=== PATIENT | female | born 1950 | race Caucasian/White ===

== ENCOUNTER → 2018-02-20 09:22 | Outpatient (CLI) | payer OTHER, SELFPAY ==
[2018-02-20 10:30] LABS: Absolute Lymphocyte Count 1.59 X10^3/ul (0.83-4.51); Absolute Neutrophil Count 2.2 X10^3/uL (2.0-7.7); Basophil# 0.02 X10^3/uL; Basophil% 0.4 % (0-1); Eosinophil# 0.61 X10^3/uL; Eosinophils% 12.8 % (0-5); Hematocrit 40.2 % (37-47); Lymphocyte # 1.59 X10^3/ul (4.0); Lymphocyte % 33.3 % (19-41); Mean Corp Hgb Conc 34.8 g/gl (32-36); Mean Corpuscular Hgb 30.9 pg (27.0-32.0); Mean Corpuscular Volume 88.7 fL (81-99); Mean Platelet Vol. 9.7 fl (6.2-12.0); Monocyte# 0.34 X10^3/uL; Monocyte% 7.1 % (0-10); Neutrophil # 2.19 X10^3/uL (2.7-7.7); Platelet Count 226 K/mm3 (150-450); RBC Distribution Width SD 38.2 fl (35.1-43.9); Red Blood Count 4.53 M/mm3 (4.2-5.4); White Blood Count 4.8 K/mm3 (4.4-11.0)
[2018-02-20 10:31] LABS: POSITIVE COUNT NO; POSITIVE DIFFERENTIAL NO; POSITIVE MORPHOLOGY NO
[2018-02-20 10:51] LABS: Hemoglobin A1c 5.2 % (4.2-6.3)
[2018-02-20 10:52] LABS: Vitamin B12 1314 pg/mL (211-911); Vitamin D,25 Hydroxy 46.7 ng/mL (29.95-100.01)
[2018-02-20 10:53] LABS: BUN 12 mg/dL (7-18); Creatinine, Serum 0.66 mg/dL (0.55-1.02); Glucose 93 mg/dL (74-106)
[2018-02-20 10:54] LABS: ALB/GLOB Ratio 1.1 RATIO (0.9-2.4); AST(SGOT) 17 U/L (15-37); Alanine Aminotransfer ALT/SGPT 19 U/L (13-56); Albumin, Serum 3.8 g/dL (3.2-5.0); Alkaline Phosphatase 72 U/L (45-117); Anion Gap 10 (5-15); BNP,B-Type NATRIURETIC PEPTIDE 40.3 pg/mL (0-100); Calcium,Total 8.6 mg/dL (8.5-10.1); Chloride 109 mmol/L (98-107); Cholesterol 237 mg/dL (200); EST Glomerular Filtration Rate 94 mL/min (>60); Est Glom Filt Rate - Afr Amer 113 mL/min (>60); Globulin 3.4 g/dL (2.2-4.2); High Density Lipoprotein 37 mg/dL; Iron 72 ug/dL (50-170); Potassium 3.6 mmol/L (3.5-5.1); Protein, Total 7.2 g/dL (6.4-8.2); Sodium Level 142 mmol/L (136-145); T4 Free Direct 1.21 ng/dL (0.76-1.46); Triglycerides 244 mg/dL; Very Low Density Lipoprotein 49 mg/dL (5-40)
[2018-02-23 10:12] LABS: Zinc, Plasma or Serum 82 ug/dL (56-134)
== END ==
PROVIDERS: Family Provider Family Medicine; PCP Family Medicine; Visit Provider Family Medicine
DX: Z00.00 Encounter for general adult medical examination without abnormal findings (principal); E11.9 Type 2 diabetes mellitus without complications; E03.9 Hypothyroidism, unspecified; E55.9 Vitamin D deficiency, unspecified; M79.7 Fibromyalgia; I42.9 Cardiomyopathy, unspecified
CPT/HCPCS: 36415; 80053; 80061; 82306; 82607; 83036; 83540; 83880; 84439; 84443; 84630; 85025

== ENCOUNTER → 2018-02-23 09:02 | Outpatient (CLI) | payer OTHER, SELFPAY ==
--- NOTE | 2018-02-23 09:11 | ECHOD_ITS ---
Reason For Study: cardimyopathy Procedure This was a 2D Doppler, Color Flow transthoracic echocardiogram. The exam was of adequate technical quality. Exam performed in department. Left Ventricle Normal LV size. Apical false tendon noted. Left ventricular systolic function is normal. The estimated ejection fraction is 60 %. There is evidence of diastolic dysfunction. No regional wall motion abnormalities noted. Right Ventricle Normal RV size. Normal systolic function. Atria Normal left atrium. Normal right atrium. No doppler evidence for ASD. Mitral Valve There is mild mitral annular calcification. Extension of the mitral annular calcification onto the posterior mitral valve leaflet. Trivial mitral valve insufficiency. Tricuspid Valve Normal tricuspid valve. Mild to moderate (1-2+) tricuspid valve insufficiency. Right ventricular systolic pressure estimated to be 21 mmHg. Aortic Valve Trisinus/trileaflet aortic valve. Mild focal aortic valve calcification. Mild (1+) aortic valve insufficiency. Pulmonic Valve The pulmonic valve is not well visualized. Mild (1+) pulmonic valve insufficiency. Great Vessels Normal sized aortic root. Pericardium/Pleural No pericardial effusion. MMode/2D Measurements & Calculations LVIDd: 4.3 cm IVSd: 1.1 cm Ao root diam: 3.1 cm LVIDs: 2.8 cm LVPWd: 1.1 cm LA dimension: 3.3 cm RVDd: 2.5 cm FS: 34.7 % LAV(MOD-bp): 39.6 ml LA A4 area: 15.7 cm2 RA A4 area: 8.9 cm2 LAV(MOD-bp) Indexed: 23.4 ml/m2 LAV(MOD-sp2): 33.1 ml LAV(MOD-sp4): 45.4 ml Doppler Measurements & Calculations MV E max vicente: 79.9 cm/sec Lat Peak E' Vicente: 5.0 cm/sec Med Peak E' Vicente: 5.1 cm/sec MV A max vicente: 107.9 cm/sec E/E' lat: 16.1 E/E' med: 15.7 MV E/A: 0.74 Ao V2 max: 134.9 cm/sec AI max vicente: 431.0 cm/sec LV V1 max: 90.1 cm/sec Ao max P.3 mmHg AI max P.4 mmHg LV V1 max P.2 mmHg AI dec slope: 197.3 cm/sec2 AI P1/2t: 639.7 msec PA V2 max: 83.2 cm/sec PI dec slope: 169.4 cm/sec2 TR max vicente: 208.7 cm/sec TR max P.5 mmHg Interpretation Summary Left ventricular systolic function is normal. The estimated ejection fraction is 60 %. Apical false tendon noted. There is mild mitral annular calcification. Extension of the mitral annular calcification onto the posterior mitral valve leaflet. Trivial mitral valve insufficiency. Mild to moderate (1-2+) tricuspid valve insufficiency. Mild focal aortic valve calcification. Mild (1+) aortic valve insufficiency. Mild (1+) pulmonic valve insufficiency. Right ventricular systolic pressure estimated to be 21 mmHg. There is evidence of diastolic dysfunction. Ordering Physician: Zoran Tang Referring Physician: Zoran Tang Performed By: Selene Ashley, JEROME, RVT
== END ==
PROVIDERS: Family Provider Family Medicine; PCP Family Medicine; Visit Provider Family Medicine
DX: I42.9 Cardiomyopathy, unspecified (principal)
CPT/HCPCS: 93306

== ENCOUNTER → 2018-05-22 14:43 | Outpatient (CLI) | payer OTHER, SELFPAY | LOC: MTRAD 11-17 11:34 → RAD.FUTURE 14:46 | PROVIDERS: Family Provider Family Medicine; PCP Family Medicine; Visit Provider Family Medicine | DX: M21.70 Unequal limb length (acquired), unspecified site (principal); M17.12 Unilateral primary osteoarthritis, left knee; R20.2 Paresthesia of skin | CPT/HCPCS: 72110; 73564 ==

== ENCOUNTER → 2018-05-30 12:01 | Outpatient (CLI) | payer OTHER, SELFPAY ==
[2018-05-30 13:53] LABS: Absolute Lymphocyte Count 1.35 X10^3/ul (0.83-4.51); Absolute Neutrophil Count 3.3 X10^3/uL (2.0-7.7); Basophil# 0.01 X10^3/uL; Basophil% 0.2 % (0-1); Eosinophils% 5.6 % (0-5); Hematocrit 43.6 % (37-47); Hemoglobin 14.1 g/dl (12.0-15.0); Lymphocyte # 1.35 X10^3/ul (4.0); Mean Corp Hgb Conc 32.3 g/gl (32-36); Mean Corpuscular Hgb 29.9 pg (27.0-32.0); Mean Corpuscular Volume 92.4 fL (81-99); Mean Platelet Vol. 9.8 fl (6.2-12.0); Monocyte# 0.39 X10^3/uL; Monocyte% 7.2 % (0-10); Neutrophil # 3.33 X10^3/uL (2.7-7.7); Neutrophil % 61.6 % (47-70); Platelet Count 261 K/mm3 (150-450); RBC Distribution Width CV 12.8 % (11.6-14.6); RBC Distribution Width SD 42.9 fl (35.1-43.9); Red Blood Count 4.72 M/mm3 (4.2-5.4); White Blood Count 5.4 K/mm3 (4.4-11.0)
[2018-05-30 13:54] LABS: POSITIVE COUNT NO; POSITIVE DIFFERENTIAL NO; POSITIVE MORPHOLOGY NO
[2018-05-30 14:26] LABS: Anion Gap 10 (5-15); BUN 17 mg/dL (7-18); Calcium,Total 9.1 mg/dL (8.5-10.1); Chloride 110 mmol/L (98-107); Cholesterol 245 mg/dL (200); Creatinine, Serum 0.89 mg/dL (0.55-1.02); EST Glomerular Filtration Rate 67 mL/min (>60); Est Glom Filt Rate - Afr Amer 81 mL/min (>60); Glucose 91 mg/dL (74-106); High Density Lipoprotein 48 mg/dL; Magnesium 2.2 mg/dL (1.6-2.6); Potassium 3.7 mmol/L (3.5-5.1); Sodium Level 142 mmol/L (136-145); T4 Free Direct 0.74 ng/dL (0.76-1.46); Triglycerides 167 mg/dL; Very Low Density Lipoprotein 33 mg/dL (5-40)
[2018-05-31 09:49] LABS: Vitamin B12 399 pg/mL (211-911)
[2018-06-02 09:49] LABS: Zinc, Plasma or Serum 81 ug/dL (56-134)
== END ==
PROVIDERS: Family Provider Family Medicine; PCP Family Medicine; Visit Provider Family Medicine
DX: E11.9 Type 2 diabetes mellitus without complications (principal); E53.8 Deficiency of other specified B group vitamins; E03.9 Hypothyroidism, unspecified; M79.7 Fibromyalgia
CPT/HCPCS: 36415; 80048; 80061; 82607; 83735; 84439; 84443; 84630; 85025

== ENCOUNTER → 2018-09-08 08:44 | Outpatient (CLI) | payer OTHER, SELFPAY ==
[2018-09-08 10:39] LABS: ALB/GLOB Ratio 1.1 RATIO (0.9-2.4); AST(SGOT) 15 U/L (15-37); Alanine Aminotransfer ALT/SGPT 21 U/L (13-56); Alkaline Phosphatase 63 U/L (45-117); Anion Gap 7 (5-15); BUN 11 mg/dL (7-18); BUN/Creat Ratio 13.6 RATIO (10-20); Chloride 110 mmol/L (98-107); Cholesterol 229 mg/dL (200); Creatinine, Serum 0.81 mg/dL (0.55-1.02); EST Glomerular Filtration Rate 75 mL/min (>60); Est Glom Filt Rate - Afr Amer 90 mL/min (>60); Globulin 3.6 g/dL (2.2-4.2); Glucose 88 mg/dL (74-106); High Density Lipoprotein 50 mg/dL; Potassium 3.6 mmol/L (3.5-5.1); Protein, Total 7.6 g/dL (6.4-8.2); Sodium Level 144 mmol/L (136-145); T4 Free Direct 1.02 ng/dL (0.76-1.46); Thyroid Stim Hormone (TSH) 6.07 uIU/mL (0.358-3.74); Triglycerides 155 mg/dL; Very Low Density Lipoprotein 31 mg/dL (5-40)
[2018-09-08 10:46] LABS: Vitamin B12 489 pg/mL (211-911)
== END ==
PROVIDERS: Family Provider Family Medicine; PCP Family Medicine; Visit Provider Family Medicine
DX: I10 Essential (primary) hypertension (principal); E78.00 Pure hypercholesterolemia, unspecified; E03.9 Hypothyroidism, unspecified; E55.9 Vitamin D deficiency, unspecified; E53.8 Deficiency of other specified B group vitamins
CPT/HCPCS: 36415; 80053; 80061; 82306; 82607; 84439; 84443

== ENCOUNTER → 2018-11-21 10:17 | Outpatient (CLI) | payer OTHER, SELFPAY ==
[2018-11-21 12:23] LABS: Erythrocyte Sedimentation Rate 6 mm/hr (0-30)
[2018-11-21 12:25] LABS: Absolute Neutrophil Count 3.9 X10^3/uL (2.0-7.7); Eosinophil# 0.06 X10^3/uL; Eosinophils% 1.1 % (0-5); Hematocrit 42.3 % (37-47); Lymphocyte % 21.3 % (19-41); Mean Corp Hgb Conc 33.1 g/gl (32-36); Mean Corpuscular Hgb 30.4 pg (27.0-32.0); Mean Corpuscular Volume 91.8 fL (81-99); Mean Platelet Vol. 9.8 fl (6.2-12.0); Monocyte# 0.42 X10^3/uL; Monocyte% 7.5 % (0-10); Neutrophil # 3.92 X10^3/uL (2.7-7.7); Neutrophil % 69.6 % (47-70); Platelet Count 256 K/mm3 (150-450); RBC Distribution Width CV 12.6 % (11.6-14.6); RBC Distribution Width SD 41.9 fl (35.1-43.9); Red Blood Count 4.61 M/mm3 (4.2-5.4); White Blood Count 5.6 K/mm3 (4.4-11.0)
[2018-11-21 12:29] LABS: POSITIVE COUNT NO; POSITIVE DIFFERENTIAL NO; POSITIVE MORPHOLOGY NO
[2018-11-21 12:52] LABS: ALB/GLOB Ratio 1.2 RATIO (0.9-2.4); AST(SGOT) 20 U/L (15-37); Alanine Aminotransfer ALT/SGPT 26 U/L (13-56); Albumin, Serum 4.1 g/dL (3.2-5.0); Alkaline Phosphatase 66 U/L (45-117); Anion Gap 11 (5-15); BUN 13 mg/dL (7-18); CRP 5.35 mg/L (0.0-3.0); Calcium,Total 9.2 mg/dL (8.5-10.1); Chloride 107 mmol/L (98-107); Creatinine, Serum 0.81 mg/dL (0.55-1.02); EST Glomerular Filtration Rate 74 mL/min (>60); Est Glom Filt Rate - Afr Amer 89 mL/min (>60); Globulin 3.3 g/dL (2.2-4.2); Glucose 92 mg/dL (74-106); Potassium 3.8 mmol/L (3.5-5.1); Protein, Total 7.4 g/dL (6.4-8.2); Sodium Level 142 mmol/L (136-145); Thyroid Stim Hormone (TSH) 0.16 uIU/mL (0.358-3.74)
== END ==
PROVIDERS: Family Provider Family Medicine; PCP Family Medicine; Visit Provider Family Medicine
DX: E03.9 Hypothyroidism, unspecified (principal); L50.9 Urticaria, unspecified
CPT/HCPCS: 36415; 80053; 84443; 85025; 85652; 86140

== ENCOUNTER → 2019-03-09 08:31 | Outpatient (CLI) | payer OTHER, SELFPAY ==
[2019-03-09 10:19] LABS: Absolute Lymphocyte Count 1.86 X10^3/ul (0.83-4.51); Absolute Neutrophil Count 2.3 X10^3/uL (2.0-7.7); Eosinophil# 0.16 X10^3/uL; Eosinophils% 3.5 % (0-5); Hematocrit 41.2 % (37-47); Hemoglobin 14.1 g/dl (12.0-15.0); Lymphocyte # 1.86 X10^3/ul (4.0); Lymphocyte % 40.7 % (19-41); Mean Corp Hgb Conc 34.2 g/gl (32-36); Mean Corpuscular Hgb 29.9 pg (27.0-32.0); Mean Corpuscular Volume 87.3 fL (81-99); Mean Platelet Vol. 9.7 fl (6.2-12.0); Monocyte# 0.24 X10^3/uL; Monocyte% 5.3 % (0-10); Neutrophil % 50.3 % (47-70); Platelet Count 253 K/mm3 (150-450); RBC Distribution Width CV 12.7 % (11.6-14.6); Red Blood Count 4.72 M/mm3 (4.2-5.4); White Blood Count 4.6 K/mm3 (4.4-11.0)
[2019-03-09 10:22] LABS: Erythrocyte Sedimentation Rate 8 mm/hr (0-30)
[2019-03-09 10:24] LABS: POSITIVE COUNT NO; POSITIVE DIFFERENTIAL NO; POSITIVE MORPHOLOGY NO
[2019-03-09 11:04] LABS: Vitamin B12 337 pg/mL (211-911); Vitamin D,25 Hydroxy 28.8 ng/mL (29.95-100.01)
[2019-03-09 11:08] LABS: ALB/GLOB Ratio 1.3 RATIO (0.9-2.4); AST(SGOT) 18 U/L (15-37); Alanine Aminotransfer ALT/SGPT 23 U/L (13-56); Albumin, Serum 3.9 g/dL (3.2-5.0); Alkaline Phosphatase 88 U/L (45-117); Anion Gap 8 (5-15); BUN 9 mg/dL (7-18); BUN/Creat Ratio 12.4 RATIO (10-20); CRP < 2.90 mg/L (0.0-3.0); Calcium,Total 8.9 mg/dL (8.5-10.1); Chloride 109 mmol/L (98-107); Cholesterol 220 mg/dL (200); Creatinine, Serum 0.72 mg/dL (0.55-1.02); EST Glomerular Filtration Rate 85 mL/min (>60); Est Glom Filt Rate - Afr Amer 102 mL/min (>60); Free T3 2.5 pg/mL (2.18-3.98); Glucose 89 mg/dL (74-106); High Density Lipoprotein 41 mg/dL; Potassium 3.8 mmol/L (3.5-5.1); Protein, Total 6.9 g/dL (6.4-8.2); Sodium Level 140 mmol/L (136-145); Thyroid Stim Hormone (TSH) 3.57 uIU/mL (0.358-3.74); Triglycerides 301 mg/dL; Very Low Density Lipoprotein 60 mg/dL (5-40)
== END ==
PROVIDERS: Family Provider Family Medicine; PCP Family Medicine; Referring Provider Family Medicine; Visit Provider Family Medicine
DX: L50.9 Urticaria, unspecified (principal); M79.7 Fibromyalgia; E55.9 Vitamin D deficiency, unspecified; E03.9 Hypothyroidism, unspecified; E53.8 Deficiency of other specified B group vitamins; E78.00 Pure hypercholesterolemia, unspecified
CPT/HCPCS: 36415; 80053; 80061; 82306; 82607; 84439; 84443; 84481; 85025; 85652; 86140

== ENCOUNTER → 2019-03-12 13:06 | Outpatient (CLI) | payer OTHER, SELFPAY ==
--- NOTE | 2019-03-12 13:10 | ECHOD_ITS ---
Reason For Study: PALPITATIONS Procedure This was a 2D Doppler, Color Flow transthoracic echocardiogram. Exam performed in department. Left Ventricle Normal LV size. Left ventricular systolic function is normal. The estimated ejection fraction is 65 %. Stage 1 diastolic dysfunction. No regional wall motion abnormalities noted. Right Ventricle Normal RV size. Normal systolic function. Atria Normal left atrium. Normal right atrium. Mitral Valve Normal mitral valve. Tricuspid Valve Normal tricuspid valve. Mild (1+) tricuspid valve insufficiency. Pulmonary artery systolic pressure is 23 mmHg. Aortic Valve Normal aortic valve. Trisinus/trileaflet aortic valve. Mild (1+) eccentric aortic valve insufficiency. Pulmonic Valve Normal pulmonic valve. Mild (1+) pulmonic valve insufficiency. Great Vessels Normal aortic root. The pulmonary artery is normal size. Normal inferior vena cava. Pericardium/Pleural No pericardial effusion. MMode/2D Measurements & Calculations LVIDd: 4.8 cm IVSd: 0.86 cm Ao root diam: 3.1 cm LVIDs: 3.1 cm LVPWd: 0.87 cm RVDd: 3.0 cm FS: 34.9 % LAV(MOD-bp): 27.6 ml LVAd ap4: 23.6 cm2 SV(MOD-sp4): 42.2 ml LAV(MOD-bp) Indexed: 16.3 ml/m2 EDV(MOD-sp4): 68.9 ml LAV(MOD-sp2): 28.6 ml EDV(sp4-el): 71.0 ml LAV(MOD-sp4): 20.6 ml LVAs ap4: 13.4 cm2 ESV(MOD-sp4): 26.7 ml ESV(sp4-el): 27.7 ml EF(MOD-sp4): 61.2 % EF(sp4-el): 60.9 % SV(sp4-el): 43.2 ml LA A4 area: 10.0 cm2 LA dimension(2D): 3.1 cm RA A4 area: 9.1 cm2 Time Measurements MV dec time: 0.20 sec Doppler Measurements & Calculations MV E max vicente: 84.8 cm/sec Lat Peak E' Vicente: 9.4 cm/sec Med Peak E' Vicente: 7.2 cm/sec MV A max vicente: 102.6 cm/sec E/E' lat: 9.0 E/E' med: 11.7 MV E/A: 0.83 Ao V2 max: 144.6 cm/sec AI max vicente: 388.8 cm/sec LV V1 max: 85.1 cm/sec Ao max P.4 mmHg AI max P.5 mmHg LV V1 max P.9 mmHg AI dec slope: 181.8 cm/sec2 AI P1/2t: 626.2 msec PA V2 max: 75.7 cm/sec TR max vicente: 213.2 cm/sec TR max P.2 mmHg Interpretation Summary Normal LV size. Left ventricular systolic function is normal. The estimated ejection fraction is 65 %. Stage 1 diastolic dysfunction. Pulmonary artery systolic pressure is 23 mmHg. Ordering Physician: Zoran Tang Referring Physician: Zoran Tang Performed By: Joceline Caraballo RDCS
== END ==
PROVIDERS: Family Provider Family Medicine; PCP Family Medicine; Referring Provider Family Medicine; Visit Provider Family Medicine
DX: R00.2 Palpitations (principal)
CPT/HCPCS: 93306

== ENCOUNTER → 2019-03-26 09:40 | Outpatient (CLI) | payer OTHER, SELFPAY ==
[2019-03-26 12:34] LABS: Absolute Lymphocyte Count 1.63 X10^3/ul (0.83-4.51); Absolute Neutrophil Count 3.8 X10^3/uL (2.0-7.7); Basophil# 0.01 X10^3/uL; Basophil% 0.2 % (0-1); Eosinophil# 0.14 X10^3/uL; Eosinophils% 2.3 % (0-5); Hematocrit 41.7 % (37-47); Lymphocyte # 1.63 X10^3/ul (4.0); Mean Corp Hgb Conc 33.6 g/gl (32-36); Mean Corpuscular Hgb 29.1 pg (27.0-32.0); Mean Corpuscular Volume 86.7 fL (81-99); Mean Platelet Vol. 10.4 fl (6.2-12.0); Monocyte# 0.42 X10^3/uL; Neutrophil # 3.77 X10^3/uL (2.7-7.7); Neutrophil % 62.5 % (47-70); Platelet Count 269 K/mm3 (150-450); RBC Distribution Width CV 12.6 % (11.6-14.6); RBC Distribution Width SD 39.2 fl (35.1-43.9); Red Blood Count 4.81 M/mm3 (4.2-5.4)
[2019-03-26 12:46] LABS: POSITIVE COUNT NO; POSITIVE DIFFERENTIAL NO; POSITIVE MORPHOLOGY NO
[2019-03-26 12:47] LABS: LDH 188 U/L (84-246)
[2019-03-28 10:32] LABS: Aldolase 3.1 U/L (3.3-10.3)
== END ==
PROVIDERS: Family Provider Family Medicine; PCP Family Medicine; Visit Provider Family Medicine
DX: M79.7 Fibromyalgia (principal)
CPT/HCPCS: 36415; 82085; 83615; 85025

== ENCOUNTER → 2019-06-01 10:37 | Outpatient (CLI) | payer OTHER, MEDICARE, SELFPAY ==
[2019-06-01 12:44] LABS: Erythrocyte Sedimentation Rate 13 mm/hr (0-30)
[2019-06-01 12:45] LABS: Absolute Lymphocyte Count 1.31 X10^3/uL (0.83-4.51); Absolute Neutrophil Count 5.3 X10^3/uL (2.0-7.7); Basophil# 0.01 X10^3/uL; Basophil% 0.1 % (0-1); Eosinophil# 0.09 X10^3/uL; Eosinophils% 1.3 % (0-5); Hematocrit 42.1 % (37-47); Hemoglobin 13.9 g/dL (12.0-15.0); Lymphocyte # 1.31 X10^3/ul (4.0); Lymphocyte % 18.5 % (19-41); Mean Corpuscular Hgb 29.7 pg (27.0-32.0); Mean Platelet Vol. 9.8 fl (6.2-12.0); Monocyte# 0.32 X10^3/uL; Monocyte% 4.5 % (0-10); NRBC Flagged by Analyzer 0 % (0-5); Platelet Count 280 K/mm3 (150-450); RBC Distribution Width CV 12.9 % (11.6-14.6); RBC Distribution Width SD 42.5 fl (35.1-43.9); Red Blood Count 4.68 M/mm3 (4.2-5.4); White Blood Count 7.1 K/mm3 (4.4-11.0)
[2019-06-01 13:04] LABS: AST(SGOT) 18 U/L (15-37); Alanine Aminotransfer ALT/SGPT 21 U/L (13-56); Albumin, Serum 3.7 g/dL (3.2-5.0); Alkaline Phosphatase 81 U/L (45-117); BUN 9 mg/dL (7-18); Bilirubin, Direct 0.09 mg/dL (0.00-0.30); Creatinine, Serum 0.74 mg/dL (0.55-1.02); EST Glomerular Filtration Rate 82 mL/min (>60); Est Glom Filt Rate - Afr Amer 99 mL/min (>60); GGTP 22 U/L (5-55); Globulin 3.6 g/dL (2.2-4.2); Glucose 95 mg/dL (74-106); Protein, Total 7.3 g/dL (6.4-8.2); Thyroid Stim Hormone (TSH) 1.07 uIU/mL (0.358-3.74); Uric Acid 4.5 mg/dL (2.6-6.0)
[2019-06-01 13:44] LABS: Hepatitis C Antibody Non-Reactive (Nonreactive)
[2019-06-05 15:45] LABS: PROEL- A/G Ratio 1.2 (0.7-1.7); PROEL- Albumin 3.7 g/dL (2.9-4.4); PROEL- Alpha-1 Globulin 0.2 g/dL (0.0-0.4); PROEL- Alpha-2 Globulin 0.8 g/dL (0.4-1.0); PROEL- Beta Globulin 1.1 g/dL (0.7-1.3); PROEL- Gamma Globulin 0.8 g/dL (0.4-1.8); PROEL- TOTAL PROTEIN 6.7 g/dL (6.0-8.5)
[2019-06-05 16:07] LABS: C1 EST Inhibitor, Functional >92 (.); Thyroid Peroxidase AB 21 IU/mL (0-34)
[2019-06-06 04:06] LABS: ANTINUCLEAR ANTIBODIES DIRECT Negative (Negative)
[2019-06-06 11:57] LABS: Cat Hair / Dander,Stand <0.10 kU/L (Class 0); Dog Epithelia <0.10 kU/L (Class 0)
== END ==
PROVIDERS: Family Provider Family Medicine; PCP Family Medicine; Referring Provider Family Medicine; Visit Provider Specialist
DX: J30.9 Allergic rhinitis, unspecified (principal); T78.3XXD Angioneurotic edema, subsequent encounter; E07.9 Disorder of thyroid, unspecified
CPT/HCPCS: 36415; 80076; 82565; 82947; 82977; 84165; 84443; 84520; 84550; 85025; 85652; 86003; 86038; 86160; 86161; 86376; 86803

== ENCOUNTER → 2019-06-15 08:17 | Outpatient (CLI) | payer OTHER, SELFPAY ==
[2019-06-15 11:07] LABS: Anion Gap 5 (5-15); BUN 11 mg/dL (7-18); BUN/Creat Ratio 14.1 RATIO (10-20); Chloride 109 mmol/L (98-107); Creatinine, Serum 0.78 mg/dL (0.55-1.02); EST Glomerular Filtration Rate 77 mL/min (>60); Est Glom Filt Rate - Afr Amer 94 mL/min (>60); Glucose 107 mg/dL (74-106); Potassium 3.8 mmol/L (3.5-5.1); Sodium Level 139 mmol/L (136-145)
[2019-06-16 08:42] LABS: Vitamin B12 445 pg/mL (211-911)
== END ==
PROVIDERS: Family Provider Family Medicine; PCP Family Medicine; Referring Provider Family Medicine; Visit Provider Family Medicine
DX: I10 Essential (primary) hypertension (principal); E53.8 Deficiency of other specified B group vitamins; E55.9 Vitamin D deficiency, unspecified; R79.0 Abnormal level of blood mineral
CPT/HCPCS: 36415; 80048; 82306; 82607; 83735

== ENCOUNTER → 2019-09-04 09:56 | Outpatient (CLI) | payer OTHER, SELFPAY ==
[2019-09-04 13:05] LABS: Anion Gap 7 (5-15); BUN 8 mg/dL (7-18); Chloride 109 mmol/L (98-107); EST Glomerular Filtration Rate 75 mL/min (>60); Est Glom Filt Rate - Afr Amer 91 mL/min (>60); Glucose 115 mg/dL (74-106); Potassium 3.7 mmol/L (3.5-5.1); Sodium Level 142 mmol/L (136-145)
== END ==
PROVIDERS: Family Provider Family Medicine; PCP Family Medicine; Referring Provider Family Medicine; Visit Provider Family Medicine
DX: R00.2 Palpitations (principal); E03.9 Hypothyroidism, unspecified
CPT/HCPCS: 36415; 80048; 83735; 84443

== ENCOUNTER → 2019-09-07 10:02 | Outpatient (CLI) | payer OTHER, SELFPAY ==
--- NOTE | 2019-09-07 10:08 | ECHOD_ITS ---
Reason For Study: CMP Left Ventricle Normal LV size. The estimated ejection fraction is 60 %. No evidence for diastolic dysfunction. No regional wall motion abnormalities noted. Right Ventricle Normal RV size. Normal systolic function. Atria Normal left atrium. Normal right atrium. No doppler evidence for ASD. Mitral Valve There is no mitral valve stenosis. Mild (1+) mitral valve insufficiency. Tricuspid Valve There is no tricuspid stenosis. Mild tricuspid valve insufficiency. Pulmonary artery systolic pressure is 20 mmHg. Aortic Valve Trisinus/trileaflet aortic valve. There is no aortic stenosis. Mild (1+) aortic valve insufficiency. Pulmonic Valve There is no pulmonic valvular stenosis. No pulmonic valve insufficiency. Great Vessels Normal aortic root. Pericardium/Pleural No pericardial effusion. MMode/2D Measurements & Calculations LVIDd: 4.1 cm IVSd: 1.2 cm Ao root diam: 3.4 cm LVIDs: 2.9 cm LVPWd: 1.3 cm LA dimension: 3.1 cm RVDd: 2.8 cm FS: 29.4 % LAV(MOD-bp): 39.5 ml LVAd ap4: 22.2 cm2 SV(MOD-sp4): 32.1 ml LAV(MOD-bp) Indexed: 23.6 ml/m2 EDV(MOD-sp4): 61.6 ml LAV(MOD-sp2): 40.3 ml EDV(sp4-el): 64.4 ml LAV(MOD-sp4): 32.8 ml LVAs ap4: 14.2 cm2 ESV(MOD-sp4): 29.5 ml ESV(sp4-el): 28.6 ml EF(MOD-sp4): 52.1 % EF(sp4-el): 55.6 % SV(sp4-el): 35.8 ml LA A4 area: 13.3 cm2 RA A4 area: 9.6 cm2 Time Measurements MV dec time: 0.21 sec Doppler Measurements & Calculations MV E max vicente: 50.6 cm/sec Lat Peak E' Vicente: 6.5 cm/sec Med Peak E' Vicente: 5.9 cm/sec MV A max vicente: 74.4 cm/sec E/E' lat: 7.8 E/E' med: 8.6 MV E/A: 0.68 MV V2 max: 89.1 cm/sec MV P1/2t max vicente: 71.9 cm/sec Ao V2 max: 121.3 cm/sec MV max P.2 mmHg MV P1/2t: 78.1 msec Ao max P.9 mmHg MV V2 mean: 40.7 cm/sec MV dec slope: 269.6 cm/sec2 Ao V2 mean: 72.7 cm/sec MV mean P.81 mmHg Ao mean P.6 mmHg MV V2 VTI: 26.6 cm MVA(P1/2t): 2.8 cm2 Ao V2 VTI: 23.5 cm AI max vicente: 377.5 cm/sec LV V1 max: 71.3 cm/sec PA V2 max: 70.2 cm/sec AI max P.0 mmHg LV V1 max P.0 mmHg AI dec slope: 109.9 cm/sec2 LV V1 mean P.0 mmHg AI P1/2t: 1006 msec LV V1 mean: 47.2 cm/sec LV V1 VTI: 17.2 cm TR max vicente: 191.0 cm/sec TR max P.6 mmHg Interpretation Summary The estimated ejection fraction is 60 %. No evidence for diastolic dysfunction. Mild (1+) mitral valve insufficiency. Mild tricuspid valve insufficiency. Pulmonary artery systolic pressure is 20 mmHg. Mild (1+) aortic valve insufficiency. Ordering Physician: Ashu Tang Referring Physician: Ashu Tang Performed By: Isrrael Cuello RCS
== END ==
PROVIDERS: Family Provider Family Medicine; PCP Family Medicine; Referring Provider Family Medicine; Visit Provider Family Medicine
DX: I42.9 Cardiomyopathy, unspecified (principal); I08.3 Combined rheumatic disorders of mitral, aortic and tricuspid valves
CPT/HCPCS: 93306

== ENCOUNTER → 2019-10-04 14:50 | Outpatient (CLI) | payer OTHER, SELFPAY ==
--- NOTE | 2019-10-04 14:52 | BD_ITS ---
STUDY: DUAL ENERGY X-RAY ABSORPTIOMETRY / DXA REASON FOR EXAM: Female, 68 years old. [employer] -EARLY AT 43 YRS OLD -- TYPE 2 DIABETIC -- HX OF PREDNISONE USE FOR 4 YRS -- TAKES THYROID MEDICATION -- HX OF TAKING DIURETIC -- DOES NO EXERCISE -- HX OF LEFT WRIST FX -- [place] OF 2.75-3 INCHES TECHNIQUE: Bone Mineral Density (BMD) measurements of lumbar spine and bilateral hips were obtained. COMPARISON: Comparison is made with prior examination dated September 20, 2013. FINDINGS: Lumbar Spine (L1-L4): g/cm2 (1.001) / T-score (-1.4) / Z-score (0.3) Findings are suggestive of osteopenia with a low fracture risk. Left Femur Total: g/cm2 (0.923) / T-score (-0.7) / Z-score (0.8) Left Femoral Neck: g/cm2 (0.900) / T-score (-1.0) / Z-score (0.7) Right Femur Total: g/cm2 (0.909) / T-score (-0.8) / Z-score (0.7) Right Femoral Neck: g/cm2 (0.904) / T-score (-1.0) / Z-score (0.8) The T-Scores on the most recent prior examination were: Lumbar Spine (L1-L4): There has been worsening of bone density since the previous examination. Left Femur Total: which represents a worsening of 12.8%. Right Femur Total: which represents a worsening of 18.8%. BD/Dexa Bone Density Study IMPRESSION: The patient is considered osteopenic as outlined below according to World Dario Organization (WHO) criteria with a low fracture risk. There has been worsening of bone density since the previous examination. Reference Information: The T-score is the number of standard deviations above or below the standard which is normal for young adults at their peak bone mineral density. The World Health Organization (WHO) interprets the T-scores as follows: Above -1 Normal bone density Between -1 and -2.5 Osteopenia Equal to / or below -2.5 Osteoporosis As a practical clinical guideline, osteopenia may be graded as follows: Mild -1 through -1.5 Moderate -1.6 through -2.0 Severe -2.1 through -2.4 The Z-score is the number of standard deviations above or below age-matched controls. A Z-score of less than -1.5 would be considered abnormal. References: 1. NIH Osteoporosis and Related Bone Diseases http://www.osteo.org 2. International Society for Clinical Densitometry http://www.iscd.org 3. National Osteoporosis Foundation http://www.nof.org Electronically Signed: Papito Montilla, at 12:20 EST , Service support ,
--- NOTE | 2019-10-04 14:53 | BI_ITS ---
MAMMOGRAPHY - BILATERAL SCREENING 3-D TOMOSYNTHESIS REASON FOR EXAM: Female, 68 years old. BILAT SCREENING - NO FAM HX - NO PREV SURG''S - BILAT HEMANGIOMAS MARKED - PERTINENT HISTORY: No significant family history. TECHNIQUE: 2-D mammograms and 3-D Tomosynthesis of the breast (s) were performed. CAD was performed. COMPARISON: September 20, 2013. FINDINGS: The breast composition is composed of scattered fibroglandular density. Scattered benign calcifications are seen. No dense spiculated masses or suspicious microcalcifications are identified. No architectural distortion is identified. There is no skin thickening or retraction. There has been no significant change since the prior study. BI/SCREEN MAMM (CAD) W/PHILLY BILAT IMPRESSION: No mammographic signs of malignancy. Routine yearly mammograms recommended. ASSESSMENT CATEGORY: BIRADS Category 2: Benign. A letter regarding these results will be sent to the patient by the facility within 30 days. FOLLOW UP RECOMMENDATION: Yearly follow up mammogram recommended. (A) Approximately 10% of breast cancers are not detected by mammography. A normal mammogram should not delay biopsy of a clinically suspicious abnormality. Electronically Signed: Guillaume Cleveland MD at 16:36 EST , Service support ,
== END ==
PROVIDERS: Family Provider Family Medicine; PCP Family Medicine; Referring Provider Family Medicine; Visit Provider Family Medicine
DX: Z12.31 Encounter for screening mammogram for malignant neoplasm of breast (principal); Z78.0 Asymptomatic menopausal state
CPT/HCPCS: 77063; 77067; 77080

== ENCOUNTER → 2019-11-05 09:45 | Outpatient (CLI) | payer OTHER, SELFPAY ==
[2019-11-05 12:46] LABS: T4 Free Direct 0.56 ng/dL (0.76-1.46)
== END ==
PROVIDERS: PCP Family Medicine; Referring Provider Family Medicine; Visit Provider Family Medicine
DX: E03.9 Hypothyroidism, unspecified (principal)
CPT/HCPCS: 36415; 84439; 84443

== ENCOUNTER → 2021-01-13 09:22 | Outpatient (CLI) | payer OTHER, SELFPAY ==
[2021-01-13 10:05] LABS: Erythrocyte Sedimentation Rate 3 mm/hr (0-30)
[2021-01-13 10:11] LABS: Hematocrit 41.5 % (37-47); Hemoglobin 13.1 g/dL (12.0-15.0); Mean Corp Hgb Conc 31.6 g/dL (32-36); Mean Corpuscular Hgb 28.4 pg (27.0-32.0); Mean Platelet Vol. 9.4 fl (6.2-12.0); Platelet Count 310 K/mm3 (150-450); RBC Distribution Width SD 39.6 fl (35.1-43.9); Red Blood Count 4.61 M/mm3 (4.2-5.4); White Blood Count 5.8 K/mm3 (4.4-11.0)
[2021-01-13 10:31] LABS: Vitamin D,25 Hydroxy 58.6 ng/mL
[2021-01-13 10:44] LABS: ALB/GLOB Ratio 1.1 RATIO (0.9-2.4); AST(SGOT) 15 U/L (15-37); Alanine Aminotransfer ALT/SGPT 26 U/L (13-56); Albumin, Serum 3.7 g/dL (3.2-5.0); Alkaline Phosphatase 63 U/L (45-117); Anion Gap 5 (5-15); BUN 9 mg/dL (7-18); BUN/Creat Ratio 12.1 RATIO (10-20); Calcium,Total 9.1 mg/dL (8.5-10.1); Chloride 109 mmol/L (98-107); Cholesterol 188 mg/dL (200); Creatinine, Serum 0.74 mg/dL (0.55-1.02); EST Glomerular Filtration Rate 82 mL/min (>60); Est Glom Filt Rate - Afr Amer 99 mL/min (>60); Globulin 3.5 g/dL (2.2-4.2); Glucose 93 mg/dL (74-106); High Density Lipoprotein 46 mg/dL; Potassium 3.7 mmol/L (3.5-5.1); Protein, Total 7.2 g/dL (6.4-8.2); Sodium Level 141 mmol/L (136-145); T4 Free Direct 1.48 ng/dL (0.76-1.46); Thyroid Stim Hormone (TSH) < 0.01 uIU/mL (0.358-3.74); Triglycerides 175 mg/dL; Very Low Density Lipoprotein 35 mg/dL (5-40)
== END ==
PROVIDERS: PCP Family Medicine; Referring Provider Family Medicine; Visit Provider Family Medicine
DX: L50.9 Urticaria, unspecified (principal); E03.9 Hypothyroidism, unspecified; E55.9 Vitamin D deficiency, unspecified; E78.00 Pure hypercholesterolemia, unspecified
CPT/HCPCS: 36415; 80053; 80061; 82306; 84439; 84443; 85027; 85652

== ENCOUNTER → 2021-02-26 14:51 | Outpatient (CLI) | payer OTHER, SELFPAY ==
[2021-02-26 17:45] LABS: Vitamin B12 528 pg/mL (211-911)
[2021-03-06 16:08] LABS: VITAMIN B6 27.8 ug/L (2.0-32.8)
[2021-03-06 16:27] LABS: Vitamin B1, Thiamine 176.4 nmol/L (66.5-200.0)
== END ==
PROVIDERS: PCP Family Medicine; Referring Provider Family Medicine; Visit Provider Family Medicine
DX: E53.8 Deficiency of other specified B group vitamins (principal)
CPT/HCPCS: 36415; 82607; 84207; 84425

== ENCOUNTER → 2021-03-06 15:39 | Outpatient (CLI) | payer MEDICARE, SELFPAY ==
--- NOTE | 2021-03-06 15:41 | BI_ITS ---
MAMMOGRAPHY - BILATERAL SCREENING REASON FOR EXAM: Female, 70 years old. Routine annual screening examination. PERTINENT HISTORY: Non-contributory. Weight loss. TECHNIQUE: Digital bilateral breast philly (3D mammographic acquisition) in the CC and MLO projections. 2-D mediolateral oblique (MLO) and craniocaudad (CC) views of both breasts were obtained. CAD: Full Field Digital Mammography with Computer Added Detection was performed. COMPARISON: Comparison is made with prior examination dated 04/03/2020 and 09/20/2013. FINDINGS: Breast Composition: There are scattered areas of fibroglandular density. There are no dominant masses or suspicious calcifications. Stable benign-appearing bilateral axillary lymph nodes. No other significant abnormalities are identified. There has been no significant change since the prior study. BI/SCRN MAMM (CAD)W/PHILLY BILAT IMPRESSION: Stable bilateral screening mammogram. Yearly follow-up mammogram recommended. (A) ASSESSMENT CATEGORY: BIRADS Category 2: Benign. A letter regarding these results will be sent to the patient by the facility within 30 days. Approximately 10% of breast cancers are not detected by mammography. A normal mammogram should not delay biopsy of a clinically suspicious abnormality. [id number] Electronically Signed: Papito Montilla MD at 9:42 EDT , Service support ,
== END ==
PROVIDERS: PCP Family Medicine; Referring Provider Family Medicine; Visit Provider Family Medicine
DX: Z12.31 Encounter for screening mammogram for malignant neoplasm of breast (principal)
CPT/HCPCS: 77063; 77067

== ENCOUNTER → 2021-07-02 11:31 | Outpatient (CLI) | payer MEDICARE, SELFPAY ==
[2021-07-02 15:17] LABS: Absolute Lymphocyte Count 1.73 X10^3/uL (0.83-4.51); Absolute Neutrophil Count 3.7 X10^3/uL (2.0-7.7); Basophil# 0.01 X10^3/uL; Basophil% 0.2 % (0-1); Eosinophil# 0.05 X10^3/uL; Eosinophils% 0.8 % (0-5); Hematocrit 47.5 % (37-47); Hemoglobin 15.3 g/dL (12.0-15.0); Lymphocyte # 1.73 X10^3/ul (0.83-4.51); Lymphocyte % 29.1 % (19-41); Mean Corp Hgb Conc 32.2 g/dL (32-36); Mean Corpuscular Hgb 29.4 pg (27.0-32.0); Mean Corpuscular Volume 91.3 fL (81-99); Mean Platelet Vol. 10.1 fl (6.2-12.0); Monocyte# 0.46 X10^3/uL; Monocyte% 7.7 % (0-10); NRBC Flagged by Analyzer 0 % (0-5); Neutrophil # 3.65 X10^3/uL (2.7-7.7); Neutrophil % 61.5 % (47-70); Platelet Count 266 K/mm3 (150-450); RBC Distribution Width CV 12.1 % (11.6-14.6); RBC Distribution Width SD 40.4 fl (35.1-43.9); White Blood Count 5.9 K/mm3 (4.4-11.0)
[2021-07-02 15:34] LABS: Vitamin B12 655 pg/mL (211-911); Vitamin D,25 Hydroxy 56.9 ng/mL
[2021-07-02 15:45] LABS: ALB/GLOB Ratio 0.9 RATIO (0.9-2.4); AST(SGOT) 25 U/L (15-37); Alanine Aminotransfer ALT/SGPT 46 U/L (13-56); Albumin, Serum 3.7 g/dL (3.2-5.0); Alkaline Phosphatase 98 U/L (45-117); Anion Gap 7 (5-15); BUN 8 mg/dL (7-18); BUN/Creat Ratio 11.9 RATIO (10-20); Calcium,Total 9.3 mg/dL (8.5-10.1); Chloride 107 mmol/L (98-107); Cholesterol 225 mg/dL (200); Creatinine, Serum 0.67 mg/dL (0.55-1.02); EST Glomerular Filtration Rate 92 mL/min (>60); Est Glom Filt Rate - Afr Amer 111 mL/min (>60); Glucose 96 mg/dL (74-106); High Density Lipoprotein 41 mg/dL; Potassium 3.8 mmol/L (3.5-5.1); Protein, Total 7.7 g/dL (6.4-8.2); Sodium Level 139 mmol/L (136-145); T4 Free Direct 1.12 ng/dL (0.76-1.46); Thyroid Stim Hormone (TSH) 0.05 uIU/mL (0.358-3.74); Triglycerides 308 mg/dL; Very Low Density Lipoprotein 62 mg/dL (5-40)
[2021-07-02 16:08] LABS: Erythrocyte Sedimentation Rate 10 mm/hr (0-30)
[2021-07-10 16:50] LABS: Vitamin B1, Thiamine 213.6 nmol/L (66.5-200.0)
== END ==
PROVIDERS: PCP Family Medicine; Referring Provider Family Medicine; Visit Provider Family Medicine
DX: L50.9 Urticaria, unspecified (principal); E11.9 Type 2 diabetes mellitus without complications; E53.8 Deficiency of other specified B group vitamins; E55.9 Vitamin D deficiency, unspecified; E03.9 Hypothyroidism, unspecified
CPT/HCPCS: 80053; 80061; 82306; 82607; 84425; 84439; 84443; 85025; 85652; 86140

== ENCOUNTER 2021-10-14 10:12 | Outpatient (CLI) | payer MEDICARE, SELFPAY ==
[2021-10-14 12:21] LABS: Erythrocyte Sedimentation Rate 6 mm/hr (0-30)
[2021-10-14 12:29] LABS: Vitamin B12 789 pg/mL (211-911); Vitamin D,25 Hydroxy 54.1 ng/mL
[2021-10-14 12:44] LABS: Anion Gap 5 (5-15); BUN 10 mg/dL (7-18); BUN/Creat Ratio 14.5 RATIO (10-20); Calcium,Total 9.3 mg/dL (8.5-10.1); Chloride 110 mmol/L (98-107); Cholesterol 234 mg/dL (200); Creatinine, Serum 0.69 mg/dL (0.55-1.02); EST Glomerular Filtration Rate 88 mL/min (>60); Est Glom Filt Rate - Afr Amer 107 mL/min (>60); Glucose 107 mg/dL (74-106); High Density Lipoprotein 40 mg/dL; Magnesium 2.2 mg/dL (1.6-2.6); Potassium 3.8 mmol/L (3.5-5.1); Sodium Level 140 mmol/L (136-145); Thyroid Stim Hormone (TSH) 0.59 uIU/mL (0.358-3.74); Triglycerides 302 mg/dL; Very Low Density Lipoprotein 60 mg/dL (5-40)
[2021-11-04 12:08] LABS: VITAMIN B6 26.5 ug/L (2.0-32.8)
[2021-11-04 13:15] LABS: Vitamin B1, Thiamine 201.8 nmol/L (66.5-200.0)
== END 2021-10-14 23:59 | disposition short-term general hospital (02) ==
LOC: MFPLAB 10:17
PROVIDERS: PCP Family Medicine; Referring Provider Family Medicine; Visit Provider Family Medicine
DX: E03.9 Hypothyroidism, unspecified (principal); E11.9 Type 2 diabetes mellitus without complications; M79.7 Fibromyalgia; E53.8 Deficiency of other specified B group vitamins; E55.9 Vitamin D deficiency, unspecified
CPT/HCPCS: 36415; 80048; 80061; 82306; 82607; 83735; 84207; 84425; 84443; 85652

== ENCOUNTER → 2022-05-03 | Outpatient (CLI) | payer MEDICARE, SELFPAY ==
[2022-05-03 17:48] LABS: Absolute Lymphocyte Count 1.94 X10^3/uL (0.83-4.51); Absolute Neutrophil Count 2.6 X10^3/uL (2.0-7.7); Basophil# 0.01 X10^3/uL; Basophil% 0.2 % (0-1); Hematocrit 43.4 % (37-47); Hemoglobin 15.1 g/dL (12.0-15.0); Lymphocyte # 1.94 X10^3/ul (0.83-4.51); Lymphocyte % 37.9 % (19-41); Mean Corp Hgb Conc 34.8 g/dL (32-36); Mean Corpuscular Hgb 31.1 pg (27.0-32.0); Mean Corpuscular Volume 89.3 fL (81-99); Mean Platelet Vol. 9.8 fl (6.2-12.0); Monocyte# 0.43 X10^3/uL; Monocyte% 8.4 % (0-10); NRBC Flagged by Analyzer 0 % (0-5); Neutrophil # 2.62 X10^3/uL (2.7-7.7); Neutrophil % 51.1 % (47-70); Platelet Count 235 K/mm3 (150-450); RBC Distribution Width SD 39.5 fl (35.1-43.9); Red Blood Count 4.86 M/mm3 (4.2-5.4); White Blood Count 5.1 K/mm3 (4.4-11.0)
[2022-05-03 18:11] LABS: Vitamin B12 925 pg/mL (211-911); Vitamin D,25 Hydroxy 63.5 ng/mL
[2022-05-03 18:12] LABS: Erythrocyte Sedimentation Rate 10 mm/hr (0-30)
[2022-05-03 18:23] LABS: Anion Gap 7 (5-15); BUN 9 mg/dL (7-18); BUN/Creat Ratio 12.6 RATIO (10-20); Calcium,Total 9.5 mg/dL (8.5-10.1); Chloride 105 mmol/L (98-107); Creatinine, Serum 0.72 mg/dL (0.55-1.02); EST Glomerular Filtration Rate 85 mL/min (>60); Est Glom Filt Rate - Afr Amer 103 mL/min (>60); Glucose 112 mg/dL (74-106); Potassium 3.7 mmol/L (3.5-5.1); Sodium Level 139 mmol/L (136-145); Thyroid Stim Hormone (TSH) 0.85 uIU/mL (0.358-3.74)
== END | disposition home or self-care (01) ==
LOC: MFPLAB 14:39
PROVIDERS: PCP Family Medicine; Visit Provider Family Medicine
DX: R20.2 Paresthesia of skin (principal); E55.9 Vitamin D deficiency, unspecified
CPT/HCPCS: 36415; 80048; 82306; 82607; 84443; 85025; 85652

== ENCOUNTER → 2022-08-12 | Outpatient (CLI) | payer MEDICARE, SELFPAY ==
[2022-08-17 13:27] LABS: H. PYLORI STOOL AG Negative (Negative)
== END | disposition home or self-care (01) ==
PROVIDERS: PCP Family Medicine; Visit Provider Nurse Practitioner Family
DX: R19.7 Diarrhea, unspecified (principal)
CPT/HCPCS: 87177; 87209; 87338; 87493

== ENCOUNTER 2022-10-19 13:29 | Day surgery (SDC) | payer MEDICARE, SELFPAY ==
[2022-10-19] VITALS (7 sets, daily range): BP systolic 97–155; BP diastolic 62–75; PULSE 55–69; RESP 14–17; TEMP 30.6–36.2; O2SAT 94–98; BMI 30.8
[2022-10-19] MEDS: Lactated Ringers 1,000 ML 15 ML IV (13:30)
--- NOTE | 2022-10-19 14:09 | PCM.HP.BLA ---
History and Physical Date of Admission: 10/19/22 71 F who presents to the office today for diarrhea which persisted for one month, was associated with bilateral lower abdominal pain. The pain has resolved. The diarrhea is better but stools are still slightly looser than normal, but formed now. It was initially just watery. Having 3-4 BMs per day, normally only has 2 BMs per day. Two daughters also had diarrhea. She had covid in early July 2022, then diarrhea began soon after that infection. Runny nose has resolved. No melena or hematochezia. Eats a very healthy diet. Negative for C diff, O&P, H pylori. Hx of IBS, she says not active since improving her diet. She was previously treated by GI Dr Aguirre in [place]. She is due for her screening colonoscopy. Hx pancreatitis. Reports her mother from pancreatitis. 2 brother w/ hx of pancreatitis. Chart includes hx of GERD, she denies any heartburn or acid reflux, not on any meds for GERD, thinks she had an EGD many years ago. ROS Const Constitutional: No fatigue ENT ENT: No difficulty swallowing Gastro GI: Positive for diarrhea; No abdominal pain, belching, bloating, change in bowel habits, change in stool character, coffee ground emesis, constipation, cramping, heartburn, difficulty swallowing, feeling full early, excessive flatus, incontinent of stools, Vomiting blood/hematemesis, Blood in stool, loose stools, Black,tarry stools, nausea/dyspepsia, pain with swallowing, vomiting or other Musc Musculoskeletal: No joint pain Skin Skin: No yellowing of the eye or itchy eyes Psych Psychiatric: No anxiety and No depression Endo Endocrine: No fatigue Aller/Imm Allergy/Immunologic: No itchy eyes Aris/Lymp Hematologic/Lymphatic: No easy bleeding or easy bruising Exam Const General: cooperative Nutritional Appearance: overweight Orientation: alert, awake and oriented x3 HENMT Head: normal to inspection Eyes General: appearance normal, both eyes and all related structures Resp Effort & Inspection: normal respiratory effort GI Inspection: obesity Quality Reporting Tobacco Screening ([facility] 138) Smoking Status: Never smoker Assessment and Plan Assessment and Plan (1) Diarrhea: ?Status:?Acute ?Plan: 71 yo female with acute diarrhea that is resolving spontaneously, likely viral. She declines any treatment. We will schedule her for screening colonoscopy. w/ f/u [address] Hutson. We discussed her hx pancreatitis, she declines any eval related to that. I have examined the patient and the H&P has been reviewed. There are no clinical changes since date of exam.
--- NOTE | 2022-10-19 14:30 | COLBX_PTH ---
PATIENT: ERLINDA YUSUF LOC: EN U#:[id number] AGE/SX: 71/F ROOM: RE10/19/[address]: Dr. Rai Hutson DO : 1950 BED: DIS: 10/19/2022 SPEC #: [id number] RECD: 10/19/22 16:56 STATUS: ESTHER REYulissa #: [id number] CHON: 10/19/22 14:[address]: Rai Hutson DEPT: SURGICAL PATHOLOGY RECD BY: Elaina Mayes ENTERED: 10/20/22 09:47 SP TYPE: COLON BX OTHR DR: Dr. Zoran Tang MD Tissues: Descending colon Procedures: Surgery Specimen Level IV HEADER OPERATION: Colonoscopy (MAC) with polypectomy PRE-OP DIAGNOSIS: Diarrhea TISSUE SUBMITTED: Descending colon polyp MICROSCOPIC DIAGNOSIS Descending colon polyp, biopsy: Fragments of tubular adenoma. AM:marsha 10/21/2022 MICROSCOPIC DESCRIPTION Slides are reviewed. GROSS DESCRIPTION Received in fixative is one container labeled with the patient's name and designated descending colon polyp. The specimen consists of multiple irregular fragments of light tate soft tissue that in aggregate measure 0.6 x 0.3 x 0.1 cm. The specimen is totally submitted in one cassette. / AM:marsha 10/20/2022 TC:5 CPT: 24074
--- NOTE | 2022-10-19 14:59 | OP.COLON_ITS ---
Patient Name: Lisa Alas Procedure Date: 10/19/2022 2:37 PM Date of : 1950 Age: 71 Procedure: Colonoscopy Indications: Screening for colorectal malignant neoplasm Providers: Rai Hutson DO Medicines: Monitored Anesthesia Care Patient Profile: This is a 71 year old female. Refer to note in patient chart for documentation of history and physical. Last Colonoscopy: more than 10 years ago. Complications: No immediate complications. Procedure: Pre-Anesthesia Assessment: - Prior to the procedure, a History and Physical was performed, and patient medications and allergies were reviewed. The risks and benefits of the procedure and the sedation options and risks were discussed with the patient. All questions were answered and informed consent was obtained. Patient identification and proposed procedure were verified by the physician in the pre-procedure area. Mental Status Examination: alert and oriented. Airway Examination: normal oropharyngeal airway and neck mobility. Respiratory Examination: clear to auscultation. CV Examination: normal. Prophylactic Antibiotics: The patient does not require prophylactic antibiotics. Prior Anticoagulants: The patient has taken no previous anticoagulant or antiplatelet agents. After reviewing the risks and benefits, the patient was deemed in satisfactory condition to undergo the procedure. The anesthesia plan was to use monitored anesthesia care (MAC). Immediately prior to administration of medications, the patient was re-assessed for adequacy to receive sedatives. The heart rate, respiratory rate, oxygen saturations, blood pressure, adequacy of pulmonary ventilation, and response to care were monitored throughout the procedure. The physical status of the patient was re-assessed after the procedure. After I obtained informed consent, the scope was passed under direct vision. Throughout the procedure, the patient's blood pressure, pulse, and oxygen saturations were monitored continuously. The colonoscope was introduced through the anus and advanced to the cecum, identified by appendiceal orifice and ileocecal valve. The colonoscopy was performed without difficulty. The patient tolerated the procedure well. The quality of the bowel preparation was good. Scope In: 2:40:22 PM Scope Withdrawal Time 0 hours 9 minutes 6 seconds Scope Out: 2:52:34 PM Total Procedure Duration Time 0 hours 12 minutes 12 seconds Findings: The perianal and digital rectal examinations were normal. A 5 mm polyp was found in the descending colon. The polyp was sessile. The polyp was removed with a hot snare. Resection and retrieval were complete. Verification of patient identification for the specimen was done. Estimated blood loss was minimal. Non-bleeding external and internal hemorrhoids were found during retroflexion and during perianal exam. The hemorrhoids were Grade II (internal hemorrhoids that prolapse but reduce spontaneously). The exam was otherwise without abnormality on direct and retroflexion views. Impression: - One 5 mm polyp in the descending colon, removed with a hot snare. Resected and retrieved. - Non-bleeding external and internal hemorrhoids. - The examination was otherwise normal on direct and retroflexion views. Recommendation: - Discharge patient to home. - Resume previous diet. - Continue present medications. - Await pathology results. - Repeat colonoscopy in 5 years for surveillance. Procedure Code(s): --- Professional --- 79383, Colonoscopy, flexible; with removal of tumor(s), polyp(s), or other lesion(s) by snare technique CPT copyright 2017 [employer]. All rights reserved. The codes documented in this report are preliminary and upon copy preparer review may be revised to meet current compliance requirements. Rai Hutson DO 10/19/2022 2:59:00 PM This report has been signed electronically. Number of Addenda: 0 Note Initiated On: 10/19/2022 2:37 PM
--- NOTE | 2022-10-19 15:00 | OP.CCLET_ITS ---
10/19/2022 Ashu Tang [address] [place] [address] Re : Colonoscopy procedure for Lisa Alas Dear Dr. Tang This procedure was performed on Wednesday, October 19, 2022. My impressions and recommendations are as follows: Impressions : - One 5 mm polyp in the descending colon, removed with a hot snare. Resected and retrieved. - Non-bleeding external and internal hemorrhoids. - The examination was otherwise normal on direct and retroflexion views. Recommendations : - Discharge patient to home. - Resume previous diet. - Continue present medications. - Await pathology results. - Repeat colonoscopy in 5 years for surveillance. My findings are described in the full procedure note, which is enclosed. If I can be of further assistance, please feel free to contact me at . Sincerely, Rai Hutson, 10/19/2022 2:59:00 PM This report has been signed electronically.
== END 2022-10-19 15:56 | disposition home or self-care (01) ==
LOC: EN 13:29 → AC 13:31
PROVIDERS: PCP Family Medicine; Referring Provider Family Medicine; Visit Provider Internal Medicine Gastroenterology
PROC: 0DJD8ZZ Inspection of Lower Intestinal Tract, Via Natural or Artificial Opening Endoscopic (ICD-10-PCS; CPT 45378; principal; 2022-10-19 14:25)
DX: Z12.11 Encounter for screening for malignant neoplasm of colon (principal); D12.4 Benign neoplasm of descending colon; K64.1 Second degree hemorrhoids; I10 Essential (primary) hypertension; R19.7 Diarrhea, unspecified; Z79.899 Other long term (current) drug therapy
CPT/HCPCS: 45385; 88305; J7120; J2405

== ENCOUNTER → 2022-12-24 | Outpatient (CLI) | payer MEDICARE, SELFPAY ==
[2022-12-24 12:56] LABS: Vitamin B12 794 pg/mL (211-911); Vitamin D,25 Hydroxy 60.3 ng/mL
[2022-12-24 13:16] LABS: AST(SGOT) 44 U/L (15-37); Alanine Aminotransfer ALT/SGPT 71 U/L (13-56); Albumin, Serum 3.7 g/dL (3.2-5.0); Alkaline Phosphatase 76 U/L (45-117); Anion Gap 6 (5-15); BUN 10 mg/dL (7-18); BUN/Creat Ratio 14.2 RATIO (10-20); Calcium,Total 9.2 mg/dL (8.5-10.1); Chloride 107 mmol/L (98-107); Cholesterol 231 mg/dL (200); EST Glomerular Filtration Rate 86 mL/min (>60); Est Glom Filt Rate - Afr Amer 104 mL/min (>60); Globulin 3.7 g/dL (2.2-4.2); Glucose 122 mg/dL (74-106); High Density Lipoprotein 35 mg/dL; Potassium 3.7 mmol/L (3.5-5.1); Protein, Total 7.4 g/dL (6.4-8.2); Sodium Level 139 mmol/L (136-145); Thyroid Stim Hormone (TSH) 0.39 uIU/mL (0.358-3.74); Triglycerides 436 mg/dL
== END | disposition home or self-care (01) ==
LOC: MFPLAB 09:16
PROVIDERS: PCP Family Medicine; Visit Provider Family Medicine
DX: E11.9 Type 2 diabetes mellitus without complications (principal); E55.9 Vitamin D deficiency, unspecified
CPT/HCPCS: 36415; 80053; 80061; 82306; 82607; 84443

== ENCOUNTER → 2023-09-01 | Outpatient (CLI) | payer MEDICARE, SELFPAY ==
--- NOTE | 2023-09-01 12:42 | RAD_ITS ---
STUDY: X-RAY - PELVIS AND RIGHT HIP REASON FOR EXAM: Female, 72 years old. Pain. TECHNIQUE: 3 views of the pelvis and right hip. COMPARISON: None. FINDINGS: There is a non-specific bowel gas pattern. Normal visualized soft tissue structures. Normal bilateral iliac wings, sacroiliac joints and visualized sacrum. Normal bilateral superior and inferior pubic rami. There is mild pubic symphysis arthrosis. Normal bilateral ischial tuberosities. There are osteoarthritic changes of the femoral head with marginal osteophyte formation. There is osteoarthritic spur formation of the acetabular rim. There is no acute fracture. 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 No demonstrated fracture. Mild pubic symphysis arthrosis. Electronically Signed: Prabhjot Magallanes MD at 11:54 EST ,
== END | disposition home or self-care (01) ==
LOC: MTRAD 12:39
PROVIDERS: PCP Family Medicine; Referring Provider Family Medicine; Visit Provider Family Medicine
DX: M25.551 Pain in right hip (principal)
CPT/HCPCS: 73502

== ENCOUNTER 2023-09-15 09:58 | Outpatient (RCR) | payer MEDICARE, SELFPAY ==
--- NOTE | 2023-09-15 10:47 | HP.PTEVAL_ITS ---
Patient's Visit Information Visit Information Visit Information: ERLINDA YUSUF is a 72 year old F referred to Physical Therapy by Dr. Ashu Tang MD with a diagnosis of R hip pain. Date of Evaluation: 09/15/23 Physical Therapist: MARIXA Henley Visit Plan Frequency: 2x /Week Duration: 6 Weeks Plan: 2X/ week for 4 weeks for R hip PROM, AAROM, AROM, stretching of hip flexors and progressing to hip IR/ER AROM, gait training and strengthening of B hips with HEP HEP: standing hip flex, standing hip ABD (with core bracing), LTR Subjective Subjective: Pt woke up one morning and everything was fine and she had pain in her R groin and down the R thigh. She also had a bruise on her R bicep area. Her R hip still hurts with sitting but worse with walking. She has some weakness but more sore than weak. He did an x-ray and made an appt for PT. The x-ray showed Arthritis. She has R buttock pain and into the groin and medial side of leg and some on the outside of the leg. Steps: she is struggling with stairs and uses a railing and goes up 2 feet to a stair. Sit to stand she needs to use her arms to stand up. Before this she was super flexible. Pain R groin pain: Pain Intensity (Out of 10): 4 R buttock pain: Pain Intensity (Out of 10): 5 Objective Objective: Gait: Walks with decrease stance time on the R LE. She walks with shorter stride length on the R as well LE MMT R hip flex 7.3 and L 9 R knee ext 17.9 and L 21 R knee flex 10.5 and L 13 R hip abd 7.3 and L 10.7 R hip ext 8 and L 6.3 Bridge full ROM and no pain HS B, Tight hip flexor R compared to the L R hip IR was smaller ROM and painful compared to the L Pain when we stretched the R hip into ER and into true hip abd R hip AROM flex 100 with increase pain L hip AROM flex 114 SKC increased pt pain even with assist of her UE to help her get range. She did better with standing hip flexion Increase pain with LTR but did ease up the longer that she did it Balance/Special Test Scores Lower Extremity Functional Score: 21 Goals Goal 1:: I HEP Goal Time Frame: 4-6 Weeks Goal 2:: Increase R hip strength (at the time of the eval: LE MMT R hip flex 7.3 and L 9 R knee ext 17.9 and L 21 R knee flex 10.5 and L 13 R hip abd 7.3 and L 10.7 R hip ext 8 and L 6.3) Goal Time Frame: 4-6 Weeks Goal 3:: Be able to walk with normal gait pattern with equal stance time on B LE's Goal Time Frame: 4-6 Weeks Goal 4:: Increase R hip flexion to 114 degrees with no pain Goal Time Frame: 4-6 Weeks Rehabilitation Potential Rehabilitation Potential: Good Anticipated Interventions Patient/Client Instruction: Educate patient on: Condition and Plan of Care For the Purpose of:: To decrease pain, To increase ROM, To improve nutrient delivery to tissue, To improve muscle performance and motor function, To improve ability to perform ADL's, To increase tolerance to activity/condition/position, To improve performance and independence with ADL's, To decrease level of supervision to perform tasks, To improve ability of physical actions for home/community/work/leisure, To improve gait and locomotor functions, To improve health of tissue, To decrease soft tissue restriction and To increase flexibil ity/ROM Therapeutic Exercise to Include: Strength training, Postural training, Flexibilty training, Gait and locomotor training, Passive ROM, Active ROM and Dynamic Lumbar Stabilization For the Purpose of:: To decrease pain, To increase ROM, To improve nutrient delivery to tissue, To improve muscle performance and motor function, To improve ability to perform ADL's, To increase tolerance to activity/condition/position, To improve performance and independence with ADL's, To decrease level of supervision to perform tasks, To improve ability of physical actions for home/community/work/leisure, To improve gait and locomotor functions, To improve health of tissue, To decrease soft tissue restriction and To increase flexibility/ROM Functional Training to Include: Gait training For the Purpose of:: To improve gait and locomotor functions Manual Therapy Techniques to Include: Mobilization, Passive ROM and Soft tissue mobilization For the Purpose of:: To decrease pain, To increase ROM, To improve nutrient delivery to tissue, To improve muscle performance and motor function, To improve ability to perform ADL's, To increase tolerance to activity/condition/position, To improve performance and independence with ADL's, To decrease level of supervision to perform tasks, To improve gait and locomotor functions, To improve health of tissue, To decrease soft tissue restriction and To increase flexibility/ROM Text: Thank you for the opportunity to evaluate your patient. For Medicare and Medicare HMO plans, please review the plan of care and approve it. It will need to be FAXED BACK to us at [phone] for Medicare purposes. For Medicare only, by signing this I certify the plan of care. Please let me know if there are questions or concerns regarding this plan of care. Physician Signature: Date:
== END 2023-09-15 19:00 | disposition home or self-care (01) ==
LOC: PT 09:58
PROVIDERS: PCP Family Medicine; Referring Provider Family Medicine; Visit Provider Family Medicine
DX: M25.551 Pain in right hip (principal)
CPT/HCPCS: 97161

== ENCOUNTER → 2024-03-01 | Outpatient (CLI) | payer MEDICARE, SELFPAY ==
[2024-03-01 17:44] LABS: Hematocrit 43.9 % (37-47); Hemoglobin 14.4 g/dL (12.0-15.0); Mean Corp Hgb Conc 32.8 g/dL (32-36); Mean Corpuscular Hgb 30.9 pg (27.0-32.0); Mean Corpuscular Volume 94.2 fL (81-99); Mean Platelet Vol. 10.3 fl (6.2-12.0); Platelet Count 319 K/mm3 (150-450); RBC Distribution Width CV 11.9 % (11.6-14.6); RBC Distribution Width SD 41.2 fl (35.1-43.9); Red Blood Count 4.66 M/mm3 (4.2-5.4); White Blood Count 5.9 K/mm3 (4.4-11.0)
[2024-03-01 17:54] LABS: Erythrocyte Sedimentation Rate 9 mm/hr (0-30); POSITIVE COUNT NO; POSITIVE DIFFERENTIAL NO; POSITIVE MORPHOLOGY NO; Scan Indicated on CBC? Y/N NO
[2024-03-01 18:23] LABS: Vitamin B12 920 pg/mL (211-911); Vitamin D,25 Hydroxy 28.9 ng/mL
[2024-03-01 18:38] LABS: ALB/GLOB Ratio 1.1 RATIO (0.9-2.4); AST(SGOT) 27 U/L (15-37); Alanine Aminotransfer ALT/SGPT 30 U/L (13-56); Albumin, Serum 4.2 g/dL (3.2-5.0); Alkaline Phosphatase 46 U/L (45-117); Anion Gap 7 (5-15); BUN 15 mg/dL (7-18); BUN/Creat Ratio 16.1 RATIO (10-20); CRP < 2.90 mg/L (0.0-3.0); Calcium,Total 9.6 mg/dL (8.5-10.1); Chloride 105 mmol/L (98-107); Creatinine, Serum 0.93 mg/dL (0.55-1.02); EST Glomerular Filtration Rate 63 mL/min (>60); Est Glom Filt Rate - Afr Amer 76 mL/min (>60); Ferritin 382 ng/mL (8-252); Globulin 3.9 g/dL (2.2-4.2); Glucose 124 mg/dL (74-106); Iron 92 ug/dL (50-170); Magnesium 2.3 mg/dL (1.6-2.6); Potassium 3.6 mmol/L (3.5-5.1); Protein, Total 8.1 g/dL (6.4-8.2); Sodium Level 139 mmol/L (136-145)
[2024-03-05 13:07] LABS: ANTINUCLEAR ANTIBODIES DIRECT Negative (Negative)
== END | disposition home or self-care (01) ==
LOC: MFPLAB 14:24
PROVIDERS: PCP Family Medicine; Visit Provider Family Medicine
DX: G60.9 Hereditary and idiopathic neuropathy, unspecified (principal); E11.69 Type 2 diabetes mellitus with other specified complication; E55.9 Vitamin D deficiency, unspecified
CPT/HCPCS: 36415; 80053; 82306; 82607; 82728; 83540; 83735; 84443; 85027; 85652; 86038; 86140

== ENCOUNTER → 2024-08-02 | Outpatient (CLI) | payer MEDICARE, SELFPAY ==
[2024-08-02 12:28] LABS: Hematocrit 43.2 % (37-47); Hemoglobin 14.2 g/dL (12.0-15.0); Mean Corp Hgb Conc 32.9 g/dL (32-36); Mean Corpuscular Hgb 30.5 pg (27.0-32.0); Mean Corpuscular Volume 92.7 fL (81-99); Mean Platelet Vol. 9.5 fl (6.2-12.0); Platelet Count 269 K/mm3 (150-450); RBC Distribution Width CV 12.5 % (11.6-14.6); RBC Distribution Width SD 42.4 fl (35.1-43.9); Red Blood Count 4.66 M/mm3 (4.2-5.4); White Blood Count 4.4 K/mm3 (4.4-11.0)
[2024-08-02 12:37] LABS: Vitamin B12 771 pg/mL (211-911); Vitamin D,25 Hydroxy 23.3 ng/mL
[2024-08-02 12:53] LABS: ALB/GLOB Ratio 1.1 RATIO (0.9-2.4); AST(SGOT) 22 U/L (15-37); Alanine Aminotransfer ALT/SGPT 31 U/L (13-56); Alkaline Phosphatase 51 U/L (45-117); Anion Gap 8 (5-15); BUN 15 mg/dL (7-18); BUN/Creat Ratio 17.9 RATIO (10-20); Calcium,Total 9.1 mg/dL (8.5-10.1); Chloride 111 mmol/L (98-107); Cholesterol 233 mg/dL (200); Creatinine, Serum 0.84 mg/dL (0.55-1.02); EST Glomerular Filtration Rate 70 mL/min (>60); Est Glom Filt Rate - Afr Amer 85 mL/min (>60); Globulin 3.5 g/dL (2.2-4.2); Glucose 125 mg/dL (74-106); High Density Lipoprotein 59 mg/dL; Potassium 3.6 mmol/L (3.5-5.1); Protein, Total 7.5 g/dL (6.4-8.2); Sodium Level 140 mmol/L (136-145); Triglycerides 203 mg/dL; Very Low Density Lipoprotein 41 mg/dL (5-40)
== END | disposition home or self-care (01) ==
LOC: MFPLAB 10:21
PROVIDERS: PCP Family Medicine; Referring Provider Family Medicine; Visit Provider Family Medicine
DX: Z00.00 Encounter for general adult medical examination without abnormal findings (principal); E11.01 Type 2 diabetes mellitus with hyperosmolarity with coma; E03.9 Hypothyroidism, unspecified; E55.9 Vitamin D deficiency, unspecified
CPT/HCPCS: 36415; 80053; 80061; 82306; 82607; 84443; 85027

== ENCOUNTER → 2024-08-03 | Outpatient (CLI) | payer MEDICARE, SELFPAY ==
[2024-08-03 17:19] LABS: Microalbumin,Random Urine 19.9 mg/L (NO RANGE EST.)
== END | disposition home or self-care (01) ==
PROVIDERS: PCP Family Medicine; Referring Provider Family Medicine; Visit Provider Family Medicine
DX: Z00.00 Encounter for general adult medical examination without abnormal findings (principal); E11.01 Type 2 diabetes mellitus with hyperosmolarity with coma; E11.69 Type 2 diabetes mellitus with other specified complication; E03.9 Hypothyroidism, unspecified; E55.9 Vitamin D deficiency, unspecified
CPT/HCPCS: 82043

== ENCOUNTER → 2024-09-19 | Outpatient (CLI) | payer MEDICARE, SELFPAY ==
--- NOTE | 2024-09-19 12:50 | BI_ITS ---
MAMMOGRAPHY - BILATERAL SCREENING REASON FOR EXAM: Female, 73 years old. Routine annual screening examination. PERTINENT HISTORY: Non-contributory. TECHNIQUE: Digital bilateral breast philly (3D mammographic acquisition) in the CC and MLO projections. 2-D mediolateral oblique (MLO) and craniocaudad (CC) views of both breasts were obtained. CAD: Full Field Digital Mammography with Computer Added Detection was performed. COMPARISON: Comparison is made with prior study dated March 06, 2021 and October 04, 2019. FINDINGS: Breast Composition: There are scattered areas of fibroglandular density. There are no dominant masses or suspicious calcifications. Stable bilateral fat-containing axillary lymph nodes. No other significant abnormalities are identified. There has been no significant change since the prior study. BI/SCRN MAMM (CAD)W/PHILLY BILAT IMPRESSION: Stable bilateral screening mammogram. Yearly follow-up mammogram recommended. (A) ASSESSMENT CATEGORY: BIRADS Category 2: Benign. A letter regarding these results will be sent to the patient by the facility within 30 days. Approximately 10% of breast cancers are not detected by mammography. A normal mammogram should not delay biopsy of a clinically suspicious abnormality. [id number] Electronically Signed: Papito Montilla MD at 13:55 EST ,
--- NOTE | 2024-09-19 12:50 | BD_ITS ---
STUDY: DUAL ENERGY X-RAY ABSORPTIOMETRY / DXA REASON FOR EXAM: Female, 73 years old. [id number] TECHNIQUE: Bone Mineral Density (BMD) measurements of lumbar spine and bilateral hips were obtained. COMPARISON: Comparison is made with prior study dated October 04, 2019. FINDINGS: Lumbar Spine (L1-L4): g/cm2 (1.050) / T-score (0.0) / Z-score (2.5) Findings are suggestive of normal bone density with a low fracture risk. Left Femur Total: g/cm2 (0.844) / T-score (-0.8) / Z-score (1.0) Left Femoral Neck: g/cm2 (0.830) / T-score (-0.2) / Z-score (1.9) Right Femur Total: g/cm2 (0.890) / T-score (-0.4) / Z-score (1.4) Right Femoral Neck: g/cm2 (0.806) / T-score (-0.4) / Z-score (1.7) The T-Scores on the most recent prior examination were: Lumbar Spine (L1-L4): There has been improvement of bone density since the previous examination. Left Femur Total: which represents a worsening of 1.8%. Right Femur Total: which represents an improvement of 5.3%. BD/Dexa Bone Density Study IMPRESSION: The patient is considered normal as outlined below according to World Dario Organization (WHO) criteria with a low fracture risk. There has been improvement of bone density since the previous examination. Reference Information: The T-score is the number of standard deviations above or below the standard which is normal for young adults at their peak bone mineral density. The World Health Organization (WHO) interprets the T-scores as follows: Above -1 Normal bone density Between -1 and -2.5 Osteopenia Equal to / or below -2.5 Osteoporosis As a practical clinical guideline, osteopenia may be graded as follows: Mild -1 through -1.5 Moderate -1.6 through -2.0 Severe -2.1 through -2.4 The Z-score is the number of standard deviations above or below age-matched controls. A Z-score of less than -1.5 would be considered abnormal. References: 1. NIH Osteoporosis and Related Bone Diseases www osteo.org 2. International Society for Clinical Densitometry www iscd.org 3. National Osteoporosis Foundation www nof.org Electronically Signed: Papito Montilla MD at 14:44 EST ,
== END | disposition home or self-care (01) ==
PROVIDERS: PCP Family Medicine; Referring Provider Family Medicine; Visit Provider Family Medicine
DX: Z12.31 Encounter for screening mammogram for malignant neoplasm of breast (principal); Z78.0 Asymptomatic menopausal state
CPT/HCPCS: 77063; 77067; 77080

== ENCOUNTER → 2024-10-09 | Outpatient (CLI) | payer MEDICARE, SELFPAY ==
[2024-10-09 19:18] LABS: T4 Free Direct 0.83 ng/dL (0.76-1.46)
== END | disposition home or self-care (01) ==
LOC: MFPLAB 14:20
PROVIDERS: PCP Family Medicine; Referring Provider Family Medicine; Visit Provider Family Medicine
DX: E55.9 Vitamin D deficiency, unspecified (principal); E11.01 Type 2 diabetes mellitus with hyperosmolarity with coma
CPT/HCPCS: 36415; 82306; 84439; 84443

== ENCOUNTER 2025-03-12 14:00 | Outpatient (CLI) | payer MEDICARE, SELFPAY ==
[2025-03-12 20:42] LABS: ALB/GLOB Ratio 1.6 RATIO (0.9-2.4); AST(SGOT) 35 U/L (<=31); Alanine Aminotransfer ALT/SGPT 35 U/L (<=34); Albumin, Serum 4.6 g/dL (3.4-4.8); Alkaline Phosphatase 69 U/L (35-104); Anion Gap 13 (5-15); BUN 15 mg/dL (4-19); BUN/Creat Ratio 18.2 RATIO (10-20); Calcium,Total 10.1 mg/dL (7.6-11.0); Carbon Dioxide 23.2 mmol/L (21.0-32.0); Chloride 103 mmol/L (98-108); Creatinine, Serum 0.81 mg/dL (0.70-1.20); EST Glomerular Filtration Rate 75 (>60); Globulin 2.9 g/dL (2.2-4.2); Glucose 131 mg/dL (70-99); Potassium 3.6 mmol/L (3.3-5.1); Protein, Total 7.5 g/dL (5.9-8.4); Sodium Level 140 mmol/L (133-145); Total Bilirubin 0.18 mg/dL (0.00-1.30); Vitamin B12 720 pg/mL (180-914); Vitamin D,25 Hydroxy 37.8 ng/mL (30-100)
== END 2025-03-12 23:59 | disposition home or self-care (01) ==
PROVIDERS: PCP Family Medicine; Referring Provider Family Medicine; Visit Provider Family Medicine
DX: E03.9 Hypothyroidism, unspecified (principal); E11.01 Type 2 diabetes mellitus with hyperosmolarity with coma; G31.84 Mild cognitive impairment of uncertain or unknown etiology; E55.9 Vitamin D deficiency, unspecified
CPT/HCPCS: 36415; 80053; 82306; 82607; 84439; 84443

== ENCOUNTER → 2025-09-10 | Outpatient (CLI) | payer MEDICARE, SELFPAY ==
[2025-09-10 17:52] LABS: Creatinine, Urine (random) 39.00 mg/dL (28.00-217.00); Microalbumin,Random Urine 40.3 mg/L (<20 mg/L)
--- OUTSIDE RECORDS SUMMARY | 2025-09-10 19:11 | XMS RPT_ITS | CCD ---
Author Organization [facility] Care Team Providers Care Mortar Mixer Name Role Phone Dr. Ashu Tang Primary Care Provider [phone] Dr. Ashu Tang Referring Provider Thierry YARN EXAMINER, YARN EXAMINER-C Brittani Corado Attending Provider [phone] Atwood Attending Provider [phone] Atwood Other Provider [phone] Ashu Tang Primary Care Provider [phone] Dr. Ashu Tang Referring Provider FriendDr. Atwood Attending Provider FriendDr. Atwood Other Provider [phone] Thi Tang MD Primary Care Provider THI TANG Referring Unavail able THI TANG Primary Care Unavail Dr. Thi Ariza MD Primary Care Provider Dr. Thi Tang MD Referring Provider [phone] Shayla Peralta Attending Provider [phone] Thi Tang MD Attending Provider Thi Tang Primary Care Unavailable Thi Tang Attending Unavailable Thi Tang Referring Unavailable Thi Tang Primary Care Unavailable Thi Tang Attending Unavailable Thi Tang Referring Unavailable Thi Tang Attending Unavailable Thi Tang Referring Unavailable Clyde, Thi Primary Care Unavailable Tih Tang Attending Unavailable Thi Tang Referring Unavailable Thi Tang Primary Care Unavailable Manuel Reed Attending Unavailable Thi Tang Primary Care Unavailable Shayla Vera Attending Unavailable Thi Tang Referring Unavailable Thi Tang Primary Care Unavailable Thi Tang Primary Care Unavailable Thi Tang Attending Unavailable Thi Tang Referring Unavailable OLMAN SULLIVAN JR Referring Unavailable THI TANG Primary Care UnavailOLMAN Knott JR Referring Unavailable THI TANG Primary Care UnavailHEIDE Aguirre Attending Unavailable THI TANG Primary Care Unavailabl BRITTANI Florez Attending Unavailable THI TANG Primary Care UnavailBRITTANI Beaver Attending Unavailable THI TANG Primary Care UnavailOLMAN Knott JR Attending Unavailable HEIDE FELIX Referring Unavailable THI TANG Primary Care UnavailOLMAN Knott JR Attending Unavailable THI TANG [facility] Unavailabl THI Bach Referring Unavailabl e Allergies Allergy Classification Reported Allergen(s) Allergy Type Date of Onset Reaction(s) Facility Domperidone (1 source) Domperidone Drug Allergy 01-31-20 03 [facility] DOPamine Antagonists (1 source) Metoclopramide Drug Allergy 01-31-20 03 [facility] Serotonin Reuptake Inhibitors (SSRIs) (1 source) traZODone Drug Allergy 07-12-20 03 [facility] (6 sources) buPROPion; Translations: [bupropion HCl] Drug Allergy 04-02-20 16 Other [facility] (6 sources) Cephalexin; Translations: [cephalexin monohydrate] Drug Allergy 04-02-20 16 Other [facility] (6 sources) Desvenlafaxine; Translations: [desvenlafaxine succinate] Drug Allergy 04-02-20 16 Other [facility] (6 sources) Dicyclomine; Translations: [dicyclomine HCl] Drug Allergy 04-02-20 16 Abd cramps/diarrhe a [facility] (13 sources) Domperidone; Translations: [DOMPERIDONE] Drug Allergy 01-31-20 03 Anaphylaxis [facility] (6 sources) DULoxetine; Translations: [duloxetine HCl] Drug Allergy 04-02-20 16 Other [facility] (6 sources) RABEprazole; Translations: [rabeprazole sodium] Drug Allergy 04-02-20 16 Other [facility] (13 sources) traZODone; Translations: [TRAZODONE] Drug Allergy 07-12-20 03 Anaphylaxis [facility] (5 sources) Chocolate; Translations: [chocolate flavor] Allergy to substance 08-23-20 22 Unknown [facility] (5 sources) Coffee; Translations: [coffee (Coffea arabica)] Propensity to adverse reactions 10-19-19 23 Other [facility] (4 sources) Garlic preparation Drug Allergy 10-19-19 23 Other [facility] (4 sources) peanut allergenic extract Drug Allergy 08-23-20 22 Unknown [facility] (4 sources) tomato allergenic extract Drug Allergy 10-19-19 23 Other [facility] (1 source) ALLERGIES NOT ON FILE; Translations: [ALLERGIES NOT ON FILE] Propensity to adverse reactions (disorder) [place] [id number] Repository (8 sources) Metoclopramide; Translations: [METOCLOPRAMIDE] Drug Allergy 01-31-20 03 [facility] (1 source) Domperidone Drug Allergy 01-04-20 25 [facility] Repository (1 source) Garlic preparation Drug Allergy 01-04-20 25 [facility] Repository (1 source) peanut allergenic extract Drug Allergy 01-04-20 25 [facility] Repository (1 source) tomato allergenic extract Drug Allergy 01-04-20 25 [facility] Repository (1 source) traZODone Drug Allergy 01-04-20 25 [facility] Repository Medications Current Medications Medication Drug Class(es) Dates Sig (Normalized) Sig (Original) amLODIPine 5 mg oral tablet (8 sources) Dihydropyridine Calcium Channel Perla Start: 10-13-2022 take 1 tablet by mouth once daily Amlodipine 5 mg tablet Active 5 mg PO DAILY October 13, 2022 1:00am ascorbic acid 1000 mg oral tablet (3 sources) Vitamin C take 1 tablet by mouth once daily Ascorbic Acid (VITAMIN C) 1,000 mg tablet Take 1,000 mg by mouth once daily. Active aspirin 81 mg chewable tablet (1 source) Platelet Aggregation Inhibitor, Nonsteroidal Anti-inflammatory Drug Start: 04-03-2016 take 81 mg by mouth once daily Aspirin Active 81 MG PO DAILY@0800 April 03, 2016 12:00am atenolol 50 mg oral tablet (13 sources) beta-Adrenergic Perla Start: 05-19-2014 take 1 tablet by mouth twice daily Atenolol 50 MG tablet Active 50 mg PO TWICE A DAY May 19, 2014 12:00am Start: 10-21-2008 ATENOLOL 25 MG TAB two daily 0 10/21/2008 Active B-complex with vitamin C (HIGH POTENCY B COMPLEX WITH C ORAL) (3 sources) B-complex with v itamin C (HIGH POTENCY B COMPLEX WITH C ORAL) Take by mouth. Active calcium carbonate 1500 mg oral tablet (4 sources) Start: 08-19-20 take 1 tablet by mouth once daily Calcium Carbonate (Calcium 600) 600 mg calcium (1,500 mg) tablet Active 600 mg PO DAILY August 19, 2022 1:00am calcium carbonate 625 mg / cholecalciferol 125 unt oral tablet (3 sources) Vitamin D take 1 tablet by mouth once daily calcium-cholecalcifero l, D3, (OSCAL+D 250) 250 mg-3.125 mcg (125 unit) per tablet Take 1 tablet by mouth once daily. Active cholecalciferol 1.25 mg oral capsule (5 sources) Vitamin D Start: 04-02-20 16 Cholecalciferol (Vitamin D3) (Optimal D3) 50,000 UNIT capsule Active 83447 U PO EVERY WEEK April 02, 2016 12:00am Collagen (3 sources) COLLAGEN MISC Ac tive cranberry fruit extract (CRANBERRY CONCENTRATE ORAL) (3 sources) cranberry fruit extract (CRANBERRY CONCENTRATE ORAL) Take by mouth. Active Cranberry Fruit (4 sources) Non-Standardized Food Allergenic Extract, Non-Standardized Plant Allergenic Extract Start: 10-13-19 23 take 1 capsule by mouth once daily Cranberry Fruit 400 mg Capsule Active 400 mg PO DAILY October 13, 2022 1:00am administer with a meal Start: 10-13-2022 take 400 mg by mouth once katie y Cranberry Active 400 MG PO DAILY October 13, 2022 1:00am administer with a meal Start: 10-13-2022 take 400 mg by mouth once katie y Cranberry Active 400 MG PO DAILY October 13, 2022 12:00am administer with a meal gabapentin 300 mg oral capsule (1 source) Anti-epileptic Agent Start: 01-03-2025 take 1 capsule by mouth once daily as needed Gabapentin 300 mg capsule Active 300 mg PO daily as needed January 03, 2025 12:00am Inulin (3 sources) FIBER CHOICE ORA L Take by mouth. Active levothyroxine sodium 0.175 mg oral tablet (13 sources) l-Thyroxine Start: 05-19-2014 take 1 tablet by mouth once daily Levothyroxine (Levoxyl) 175 MCG tablet Active 175 ug PO DAILY May 19, 2014 12:00am Start: 03-18-2009 levothyroxine sodium(SYNTHROID 150 MCG TAB) Take one(1) tablet daily. 0 03/18/2009 Active magnesium aspart,citrate,oxi de 400 mg magnesium cap (3 sources) magnesium aspart,citrate,oxide 400 mg magnesium cap Take by mouth. Active magnesium oxide 250 mg oral tablet (12 sources) Start: take 1 tablet by mouth once daily Magnesium Oxide 250 mg magnesium tablet Active 250 mg PO DAILY August 19, 2022 1:00am Start: 11-20-2008 MAGNESIUM OXID E 400 MG TAB Take one(1) tablet daily. pt unsure of dosage 0 11/20/2008 Active melatonin 5 mg oral capsule (6 sources) Start: 01-03-2025 Melatonin 5 mg capsule Active mg PO as needed January 03, 2025 12:00am Start: 04-02-2016 End: 08-23-2022 take 2 tablets by mouth at bedtime Melatonin 5 MG tablet Discontinued 10 mg PO AT BEDTIME April 02, 2016 12:00am August 23, 2022 4:30pm Start: 04-02-2016 End: 08-23-2022 take 10 mg by mouth at bedtime Melatonin Discontinued 10 MG PO AT BEDTIME April 01, 2016 11:00pm August 23, 2022 3:30pm methylPREDNISolone 4 mg oral tablet (1 source) Corticosteroid Start: 01-03-2025 Methylprednisolone 4 mg tablets,dose pack Active mg PO As Directed January 03, 2025 12:00am multivit-min/iron/FA/vi t K/lut (CENTRUM MINIS WOMEN 50 PLUS ORAL) (3 sources) multivit-min/iro n/FA/v it K/lut (CENTRUM MINIS WOMEN 50 PLUS ORAL) Take by mouth once daily. Active potassium chloride 10 meq extended release oral tablet (13 sources) Start: 03-23-2010 End: 08-23-2022 potassium chloride(KLOR-CON 10 10 MEQ TAB) Indications: Idiopathic urticaria , Allergic rhinitis twp tab. twice daily 0 0 03/23/2010 Active Vitamin B Complex (3 sources) Start: 08-19-2022 take 1 capsule by mouth once daily Vitamin B Complex Active 1 CAP PO DAILY August 19, 2022 1:00am Start: 08-19-2022 take 1 capsule by mo uth once daily Vitamin B Complex Active 1 CAP PO DAILY August 19, 2022 12:00am Vitamin B Complex capsule (1 source) Start: 08-19-2022 Vitamin B Comp kareem capsule Active 1 NMA PO DAILY August 19, 2022 1:00am Completed/Discontinued Medications Medication Drug Class(es) Dates Sig (Normalized) Sig (Original) biotin 5 mg sublingual tablet (4 sources) Start: 08-23-2022 End: 01-03-2025 take 1 tablet under the tongue once daily Biotin 5,000 mcg tablet, sublingual Discontinued 5000 ug SL DAILY August 23, 2022 1:00am January 03, 2025 1:18pm cetirizine hydrochloride 10 mg oral capsule (4 sources) Histamine-1 Receptor Antagonist Start: 08-19-2022 End: 01-03-2025 take 1 capsule by mouth once daily as needed Cetirizine (All Day Allergy (Cetirizine)) 10 mg capsule Discontinued 10 mg PO DAILY as needed for allergies August 19, 2022 1:00am January 03, 2025 1:19pm cyclobenzaprine hydrochloride 10 mg oral tablet (5 sources) Muscle Relaxant Start: 05-19-2014 End: 01-03-2025 take 1 tablet by mouth twice daily as needed for muscle spasms Cyclobenzaprine 10 MG tablet Discontinued 10 mg PO TWICE DAILY NEEDED as needed for MUSCLE SPASMS May 19, 2014 12:00am January 03, 2025 1:19pm daridorexant (QUVIVIQ) 25 mg tablet (1 source) Start: 02-18-2025 End: 02-28-2025 take 1 tablet by mouth once daily at bedtime daridorexant (QUVIVIQ) 25 mg tablet Indications: Chronic insomnia Take 1 tablet by mouth daily at bedtime for 90 days. 30 tablet 2 02/18/2025 02/28/2025 Discontinued [id number] 0.3 ml EPINEPHrine 1 mg/ml auto-injector (4 sources) alpha-Adrenergic Agonist, beta-Adrenergic Agonist, Catecholamine Start: 08-19-2022 End: 01-03-2025 Epinephrine (Epipen 2-Ciaran) 0.3 mg/0.3 mL auto-injector Discontinued 0.3 mg IM ONCE August 19, 2022 1:00am January 03, 2025 1:19pm as a single dose; may repeat once esomeprazole 40 mg delayed release oral capsule (5 sources) Proton Pump Inhibitor Start: 05-19-2014 End: 08-23-2022 take 1 capsule by mouth at dinner Esomeprazole Magnesium (Nexium) 40 MG capsule Discontinued 40 mg PO WITH DINNER May 19, 2014 12:00am August 23, 2022 4:31pm fenofibrate 150 mg oral capsule (13 sources) Peroxisome Proliferator Receptor alpha Agonist Start: 05-19-2014 End: 08-23-2022 take 1 capsule by mouth once daily Fenofibrate (Lipofen) 150 MG capsule Discontinued 150 mg PO DAILY May 19, 2014 12:00am August 23, 2022 4:31pm Start: 10-21-2008 End: 02-15-2025 fenofibrate nanocrystallized (TRICOR 145 MG TAB) Take one(1) tablet daily. 0 10/21/2008 02/15/2025 Discontinued hydroCHLOROthiazide 12.5 mg oral capsule (5 sources) Thiazide Diuretic Start: 05-19-2014 End: 08-23-2022 take 1 capsule by mouth once daily Hydrochlorothiazide 12.5 MG capsule Discontinued 12.5 mg PO DAILY May 19, 2014 12:00am August 23, 2022 4:31pm hydrOXYzine hydrochloride 25 mg oral tablet (9 sources) Antihistamine Start: 08-19-2022 End: 01-03-2025 take 1 tablet by mouth at bedtime Hydroxyzine Hcl 25 mg tablet Discontinued 25 mg PO AT BEDTIME August 19, 2022 1:00am January 03, 2025 1:20pm Start: 11-30-2018 End: 02-15-2025 hydrOXYzine HCl (ATARAX) 10 mg tablet Take one to two tablets at bedtime and every 6 hours as needed for itching, hives 90 tablet 1 11/30/2018 02/15/2025 Discontinued KRILL OIL ORAL (5 sources) End: 02-15-2025 KRILL OIL ORAL Take by mouth once daily. 02/15/2025 Discontinued KRILL OIL ORAL T natalie by mouth once daily. Active KRILL OIL ORAL T natalie by mouth once daily. 0 Active levocetirizine dihydrochloride 5 mg oral tablet (4 sources) Histamine-1 Receptor Antagonist Start: 08-19-2022 End: 01-03-2025 take 1 tablet by mouth once daily Levocetirizine (Allergy Relief (Levocetirizin)) 5 mg tablet Discontinued 5 mg PO DAILY August 19, 2022 1:00am January 03, 2025 1:20pm 24 hr metFORMIN hydrochloride 500 mg extended release oral tablet (5 sources) Biguanide Start: 04-02-2016 End: 08-23-2022 take 1 tablet by mouth every twenty-four hours at dinner Metformin 500 MG tablet,ER jordan.retention 24 hr Discontinued 500 mg PO WITH DINNER April 02, 2016 12:00am August 23, 2022 4:30pm montelukast 10 mg oral tablet (4 sources) Leukotriene Receptor Antagonist Start: 08-19-2022 End: 01-03-2025 take 1 tablet by mouth once daily Montelukast 10 mg tablet Discontinued 10 mg PO DAILY August 19, 2022 1:00am January 03, 2025 1:20pm niacin 250 mg extended release oral tablet (5 sources) Nicotinic Acid Start: 05-19-2014 End: 08-23-2022 take 2 tablets by mouth at dinner Niacin (Slo-Niacin) 250 MG tablet extended release Discontinued 500 mg PO WITH DINNER May 19, 2014 12:00am August 23, 2022 4:30pm predniSONE 10 mg oral tablet (5 sources) Start: 11-30-2018 End: 02-15-2025 predniSONE (DELTASONE) 10 mg tablet Take 6 tablets once a day for 5 days, then 4 tabs daily for 2 days, 3 tabs daily for 2 days, 2 tabs daily for 2 days, then 1 tab daily for 2 days 50 tablet 11/30/2018 02/15/2025 Discontinued ramipril 10 mg oral capsule (5 sources) Angiotensin Converting Enzyme Inhibitor Start: 05-19-2014 End: 08-23-2022 take 1 capsule by mouth twice daily Ramipril 10 MG capsule Discontinued 10 mg PO TWICE A DAY May 19, 2014 12:00am August 23, 2022 4:30pm raNITIdine 150 mg oral tablet (5 sources) Histamine-2 Receptor Antagonist Start: 11-30-2018 End: 02-15-2025 take 1 tablet by mouth once daily ranitidine (ZANTAC) 150 mg tablet Take 1 tablet by mouth once daily. 60 tablet 11 11/30/2018 02/15/2025 Discontinued suvorexant 20 mg oral tablet (4 sources) Orexin Receptor Antagonist Start: 02-28-2025 End: 06-04-2025 take 1 tablet by mouth once daily at bedtime suvorexant (BELSOMRA) 20 mg tab Indications: Chronic insomnia Take 1 tablet by mouth daily at bedtime for 90 days. 30 tablet 2 03/06/2025 04/25/2025 Discontinued zolpidem tartrate 5 mg oral tablet (5 sources) gamma-Aminobutyr ic Acid-ergic Agonist Start: 04-02-2016 End: 08-23-2022 take 1 tablet by mouth at bedtime as needed Zolpidem 5 MG tablet Discontinued 5 mg PO AT BEDTIME NEEDED as needed for Insomnia April 02, 2016 12:00am August 23, 2022 4:30pm Problems Active Problems Problem Classification Problem Date Documented Da te Episodic/Chronic Allergic reactions (5 sources) Chronic urticaria; Translations: [Other urticaria] 04-02-2016 Episodic Diabetes mellitus with complications (5 sources) Type 2 diabetes mellitus in obese; Translations: [Type 2 diabetes mellitus with other specified complication] 04-02-2016 Chronic Disorders of lipid metabolism (5 sources) Dyslipidemia; Translations: [Hyperlipidemia, unspecified] 04-02-2016 Chronic Esophageal disorders (5 sources) Gastroesophageal reflux disease; Translations: [Gastro-esophageal reflux disease without esophagitis] 04-02-2016 Chronic Essential hypertension (5 sources) Hypertensive disorder; Translations: [Essential (primary) hypertension] 08-19-2022 Chronic Miscellaneous mental health disorders (5 sources) Chronic insomnia; Translations: [Psychophysiologic insomnia] Onset: 5 02-28-2025 Chronic Neoplasms of unspecified nature or uncertain behavior (8 sources) Immunosecretory disorder; Translations: [Monoclonal gammopathy] Onset: 9 11-20-2008 Chronic Nonspecific chest pain (5 sources) Chest pain; Translations: [Chest pain, unspecified] 04-03-2016 Episodic Nutritional deficiencies (1 source) Vitamin D deficiency, unspecified; Translations: [Vitamin D deficiency, unspecified] Onset: 5 Chronic Other acquired deformities (2 sources) Scoliosis deformity of spine; Translations: [Scoliosis, unspecified] 01-03-2025 Chronic Other acquired deformities (2 sources) Lumbar spondylolisthesis; Translations: [Spondylolisthesis, lumbar region] 01-03-2025 Episodic Other and unspecified benign neoplasm (5 sources) Polyp of colon; Translations: [Polyp of colon] 04-02-2016 Episodic Other and unspecified benign neoplasm (1 source) Polyp of colon; Translations: [Benign neoplasm of colon] 11-12-2022 Episodic Other circulatory disease (8 sources) Arteritis; Translations: [Arteritis, unspecified] Onset: 9 11-20-2008 Chronic Other circulatory disease (5 sources) History of myocarditis; Translations: [Personal history of other diseases of the circulatory system] 04-02-2016 Episodic Comment on above: questionable - state s she had CHF from Benzadrine Other connective tissue disease (5 sources) Fibromyalgia; Translations: [Fibromyalgia] 04-02-2016 Episodic Other gastrointestinal disorders (4 sources) Irritable bowel syndrome; Translations: [Irritable bowel syndrome without diarrhea] 08-19-2022 Chronic Other gastrointestinal disorders (4 sources) Diarrhea; Translations: [Diarrhea, unspecified] 08-23-2022 Episodic Other gastrointestinal disorders (2 sources) Diarrhea, unspecified; Translations: [Diarrhea] 08-23-2022 Episodic Other hereditary and degenerative nervous system conditions (3 sources) Impaired cognition; Translations: [Mild cognitive impairment, so stated] 11-19-2024 Chronic Other hereditary and degenerative nervous system conditions (2 sources) Mild cognitive impairment, so stated; Translations: [MCI (mild cognitive impairment)] Onset: 5 Chronic Other nervous system disorders (5 sources) Narcolepsy; 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] 04-02-2016 Chronic Other nervous system disorders (8 sources) 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; Translations: [Circadian rhythm sleep disorder, unspecified type] Onset: 3 01-27-2004 Chronic Other nervous system disorders (2 sources) Impaired cognition 11-19-2024 Episodic Other nervous system disorders (1 source) Other symptoms and signs involving cognitive functions and awareness; Translations: [Cognitive decline] Onset: 5 Episodic Other nutritional; endocrine; and metabolic disorders (5 sources) Obesity; Translations: [Obesity, unspecified] 04-02-2016 Chronic Pancreatic disorders (not diabetes) (5 sources) Chronic pancreatitis; Translations: [Other chronic pancreatitis] 04-02-2016 Chronic Residual codes; unclassified (2 sources) Obstructive sleep apnea (adult) (pediatric); Translations: [Obstructive sleep apnea (adult) (pediatric)] Onset: 4 Chronic Residual codes; unclassified (7 sources) Insomnia; Translations: [Insomnia, unspecified] 04-02-2016 Episodic Residual codes; unclassified (5 sources) FH: Manic-depressive state; Translations: [Family history of other mental and behavioral disorders] 04-02-2016 Episodic Comment on above: her father and her d aughter Spondylosis; intervertebral disc disorders; other back problems (3 sources) Low back pain; Translations: [Low back pain] 01-03-2025 Episodic Thyroid disorders (6 sources) Hypothyroidism; Translations: [Hypothyroidism, unspecified] Onset: 5 04-02-2016 Chronic Unclassified (1 source) Low back pain, unspecified; Translations: [Low back pain, unspecified] Onset: 5 Past or Other Problems Problem Classification Problem Date Documented Da te Episodic/Chronic Other screening for suspected conditions (not mental disorders or infectious disease) (6 sources) Raised TSH level; Translations: [Other specified abnormal findings of blood chemistry] Onset: 10-17-2024 04-03-2016 Episodic Residual codes; unclassified (1 source) Insomnia, unspecified; Translations: [Insomnia, unspecified type] Onset: 02-15-2025 Episodic Results Test Name Value Interpretation Reference Range Facility [facility] 06-28-2025 CNOV Office Visit (NEMTOBI ) LISA ALAS ([id number]) 1950 F Date Time Provider Department 06/28/25 2:20 PM OLMAN SULLIVAN JR During your visit today, we recorded the following information about you: Pulse Respiration Blood pressure Weight 66/minute 16/minute 146/74 73.3 kg Olman Sullivan Jr., MD 06/28/2025 3:21 PM Signed ESTABLISHED PATIENT VISIT CHIEF COMPLAINT: Follow Up HISTORY OF PRESENT ILLNESS: Lisa Alas is a 74 year old female, BMI 30.04 kg/m2 with a PMH significant for and per recent notes of Heidi Quijano and Alissa Guadarrama CNPs: G31.84 MCI (mild cognitive impairment) (primary encounter diagnosis) Comment: Patient previously seen for cognitive concerns with uncertain etiology. Additional testing ordered at time of previous appointment included MRI brain with quantitative analysis as well as lab work. TSH noted to be mildly elevated and patient reports she has since had follow-up with her PCP. MRI brain demonstrating hippocampal volumes and 3rd percentile. Minimal white matter disease noted and overall brain volume in 83rd percentile. Discussed that low hippocampal volume would support a diagnosis of Alzheimer's disease, however, would not be a definitive means of diagnosis. MoCA updated in office today with score of 29/30. Improvement since time of previous visit. She does report decreasing use of OTC medications for insomnia, however, no other changes since time of previous appointment. She denies hallucinations or dangerous behaviors. Discussed options at this time including initiation of medication for prevention of decline of memory (given MRI findings) versus ongoing monitoring (as MoCA is intact). She reports that she has reviewed medication such as Aricept and does not wish to start medication due to concern for SE. Did review that we could consider alternative medication such as Namenda, however, she defers at this time. Given stability of MoCA, we will continue to monitor symptoms at this time and will have her follow-up with Dr. Sullivan in roughly 4-6 months at which time we will go can be repeated and medication can be revisited. Of note, we did review Namenda and SE and if she wishes to start medication in the interim she will reach out to the office. Chronic insomnia (primary encounter diagnosis) Lisa Alas is a 74 year old female with chronic insomnia. She has pared down the number of OTC supplements she is using for insomnia. She is satisfied with the current regimen, it is preferable to what she was taking before, now taking less diphenhydramine (now 76 mg/night) and melatonin (now 6-11 mg/night). Next step might be to try to have her take ibuprofen alone rather than Advil PM to avoid or decrease the diphenhydramine. Still sometimes feels more forgetful, especially if gets upset about something. Has walked out of kitchen with refrigerator door open. However, for most part if forgets, can stop, close eyes, and it comes to her in her words. feels these episodes are occurring daily. feels cognition declining over the past year, and he feels he is frequently filling in the blanks. Pt states she was Rx'd Aricept but does not take it because when she researched it she states it was terrible and would end her life early. Regarding insomnia, she is still taking 2 Advil PM (50 mg of benadryl total), melatonin 20mg. States no issues falling asleep but staying asleep is the problem. No matter what time goes to bed, wakes about 330AM. Bedtime between 10-11PM. Once wakes at 330AM is up and down the rest of the night. Not tired during the day at all. feels no PLMs at night. MOCA: Immediate recall: 02/04 Number repeat: 2/2 Sentence repeat: 11/04 Serial 7s: 12/03 Abstract: 11/04 Namin/3 Orientation: 03/08 Delayed recall: 12/05 (02/04 with simple cue) Cube copy: 10/03 Words being with F/1 min 10/03 Clock drawin/3 No prior depression or anxiety. REVIEW OF SYSTEMS GENERAL:No weight loss, malaise or fevers. HEENT:Negative for frequent or significant headaches, No changes in hearing or vision, no nose bleeds or other nasal problems NECK:Negative for lumps, goiter, pain and significant neck swelling RESPIRATORY: Negative for cough, wheezing or shortness of breath. CARDIOVASCULAR: Negative for chest pain, leg swelling or palpitations. GASTROINTESTINAL: Negative for abdominal discomfort, blood in stools or black stools or change in bowel habits GENITOURINARY: No history of dysuria, frequency or incontinence MUSCULOSKELETAL: Negative for joint pain or swelling, back pain or muscle pain. NEUROLOGIC:Negative for focal numbness or weakness, headaches and dizziness or syncope, vision changes, speech/languag changes - EXCEPT that as per HPI above. LAB/IMAGING: Those performed since patient's last visit have been reviewed. WBC (k/uL) Date Value (more content not included)... Normal [facility] CNOVon 04-25-2025 CNOV Office Visit (SLEWST ) LISA ALAS ([id number]) 1950 F Date Time Provider Department 04/25/25 2:30 PM BRITTANI GUADARRAMA During your visit today, we recorded the following information about you: Pulse Respiration Blood pressure Weight 78/minute 16/minute 137/88 76 kg Brittani Guadarrama APRN.CNP 04/25/2025 5:47 PM Signed [facility] Follow up/ Established patient visit Recording using ambient [employer] software for draft documentation of the visit was discussed with the patient/authorized installation service representative; all questions welcomed and answered. Patient/authorized installation service representative agreed to proceed Assessment/Plan from last visit: Date of last visit : 02/18/25 IMPRESSION: Chronic insomnia (primary encounter diagnosis) Cognitive impairment, mild, so stated Lisa Alas is a 74 year old female with: 1. Chronic insomnia (F51.04) Chronic insomnia with difficulty falling and staying asleep for several years. Recent sleep study on 07/17/2024 showed no sleep apnea, normal AHI, and good oxygen levels, no PLMs. Patient has tried multiple medications including trazodone, Belsomra, and Ambien with limited success. Currently using a combination of Advil PM, melatonin, and herbal supplements. i have concerns about long-term use of diphenhydramine affecting memory. - Prescribed Quviviq 25 mg; sent to [facility]. Discussed that it will need PA and probably an appeal; that even if approved it might be cost-prohibitive. If so we can consider Belsomra--looks like it was prescribed by primary care in 2022.I think a STEFANY would be safer for her than continuing to take approx 100 mg of diphenhydramine nightly, in addition to melatonin 8-14 mg nightly and herbal supplements. - ?consider ramelteon but I am concerned she would continue OTC melatonin too - recommend she not use liquid Children's benedryl to wash down her pills (she feels it helps with stuck pills, recommend she discuss with PCP Dr Tang) - Referred to behavioral sleep medicine for cognitive behavioral therapy for insomnia (CBT-I). Explained the BSM process to her. - Scheduled follow-up in 2 months to assess progress. - she is already scheduled for f/u with Dr Sullivan in 4 mos for insomnia and MCI 2. Cognitive impairment, mild, so stated (G31.84) Potential cognitive impairment possibly exacerbated by chronic use of diphenhydramine as well as insomnia/insufficient sleep. - Discussed risks of long-term diphenhydramine use on memory. Brittani Guadarrama APRN.CL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 CURRENT VISIT: 04/25/2025 Lisa Alas is a 74 year old female here for follow up for chronic insomnia She initially saw Dr Sullivan for chronic insomnia, and she has mild cognitive impairment She doesn't have ARIK At her last appointment we reviewed her OTC insomnia meds in detail, recommended decreasing diphenhydramine and melatonin intake. She did make changes, details below. Quviviq was denied by insurance. She stopped Belsomra after a week -- it didn't work and I felt out of it the next day. We tried 20 mg of Belsomra since she had been on 10 mg in the past. Today she says she is sleeping with her current OTC treatment regimen. She had been taking at least 100 mg of diphenhydramine nightly, now taking 76 mg; she had been taking at least 15 mg of melatonin nightly, now taking 6-11 mg. She did understand that we were concerned about the high doses and many different OTC products that she was taking. Her bedtime med regimen for insomnia now: --Advil PM 2 pills which is a total of 400 mg ibuprofen and 76 mg of diphenhydramine --Bobby Sleep 2 gummies (each is melatonin 3 mg, L-theonine, and botanicals) --Mindful Nutrition hot chocolate mix with melatonin 3 mg, L-theonine, DESTINEE --Melatonin 5 mg in the night once if she can't sleep, estimates she takes it 50% of the time Bedtime is 1030 PM SL 15 min WASO once every other night Wakes up 715 AM Naps: avoids Saw [facility] in 2002, had a dx of narcolepsy, was on Xyrem at one point, that dx was discarded Sleep study: - Type: Polysomnography - Center: [facility] - Date: 07/17/2024 - Apnea-hypopnea index (AHI): 0.0 - Lowest oxygen saturation: 90% - Other findings: Sleep efficiency was 85%, mean oxygen saturation was 94% during sleep, no significant periodic limb movements. PATIENT-ENTERED QUESTIONNAIRE SLEEP SCORES: ALLERGIES Allergen Reactions Domperidone sob, muscle tightness Metoclopramide unable to breathe Trazodone extreme sleepiness CURRENT MEDICATIONS: multivit-min/iron/FA/ vit K/lut (CENTRUM MINIS WOMEN 50 PLUS ORAL) Take by mouth once daily. COLLAGEN MISC B-complex with vitamin C (HIGH POTENCY B COMPLEX WITH C ORAL) Take by mouth. cranberry fruit extract (CRANBERRY CONCENTRATE ORAL) Take by mouth. Ascorbic Acid (VITAMIN C) 1,000 mg tablet Take 1,000 mg by mouth o (more content not included)... Normal [facility] Anion gap in Serum or Plasma Ordered By: Thi Tang on 03-12-2025 Anion gap [Moles/Vol] 13 [facility] BUN/creatinine ratioOrdered By: Thi Tang on 03-12-2025 Urea nitrogen/Creatinine [Mass ratio] 18.2 mg/mg - [facility] Bilirubin, totalOrdered By: Thi Tang on 03-12-2025 Bilirubin [Mass/Vol] 0.18 mg/dL 0.00-1.30 [facility] Carbon dioxide, total [Moles /volume] in Central venous bloodOrdered By: Thi Tang on 03-12-2025 CO2 [Moles/Vol] 23.2 mmol/L 21.0-32.0 [facility] Chloride assayOrdered By: Mouna Tang on 03-12-2025 Chloride [Moles/Vol] 103 mmol/L 98-108 [facility] Comprehensive Metabolic Prof ilon 03-12-2025 Albumin [Mass/Vol] 4.6 g/dL Normal 3.4-4.8 [facility] Comment on above: Order Comment: Order Date: 03/12/25 Order Info: 0786-1 - CMP Order Info: 3 - TSH Order Info: 302-7 - T4F Performed By: #### L [id number], L506.0400, L500.4050 #### [facility] [address] [place], [place], [address] Albumin/Globulin [Mass ratio] 1.6 {ratio} Normal 0.9-2.4 [facility] Comment on above: Order Comment: Order Date: 03/12/25 Order Info: 0786-1 - CMP Order Info: 3015-3 - TSH Order Info: 302-7 - T4F Performed By: #### L [id number], L506.0400, L500.4050 #### [facility] [address] [place], [address] ALK PHOS 69 U/L Normal 35-104 [facility] Comment on above: Order Comment: Order Date: 03/12/25 Order Info: 0786-1 - CMP Order Info: 3016-3 - TSH Order Info: 3024-7 - T4F Performed By: #### L [id number], L506.0400, L500.4050 #### [facility] [address] [place], [address] ALT [Catalytic activity/Vol] 35 U/L Normal <=34 [facility] Comment on above: Order Comment: Order Date: 03/12/25 Order Info: 0786-1 - CMP Order Info: 3016-3 - TSH Order Info: 3024-7 - T4F Performed By: #### L [id number], L506.0400, L500.4050 #### [facility] [address] [place], [address] AST [Catalytic activity/Vol] 35 U/L High <=31 [facility] Comment on above: Order Comment: Order Date: 03/12/25 Order Info: 0786-1 - CMP Order Info: 3015-3 - TSH Order Info: 3024-7 - T4F Performed By: #### L [id number], L506.0400, L500.4050 #### [facility] [address] [place], [address] Bilirubin [Mass/Vol] 0.18 mg/dL Normal 0.00-1.30 [facility] Comment on above: Order Comment: Order Date: 03/12/25 Order Info: 0786-1 - CMP Order Info: 3 - TSH Order Info: 3024-7 - T4F Performed By: #### L [id number], L506.0400, L500.4050 #### [facility] [address] [place], [address] BUN/CRE 18.2 RATIO Normal 10-20 [facility] Comment on above: Order Comment: Order Date: 03/12/25 Order Info: 0786-1 - CMP Order Info: 3015-3 - TSH Order Info: 3024-7 - T4F Performed By: #### L [id number], L506.0400, L500.4050 #### [facility] [address] [place], [address] Calcium [Mass/Vol] 10.1 mg/dL Normal 7.6-11.0 [facility] Comment on above: Order Comment: Order Date: 03/12/25 Order Info: 0786-1 - CMP Order Info: 3016-3 - TSH Order Info: 3024-7 - T4F Performed By: #### L [id number], L506.0400, L500.4050 #### [facility] [address] [place], [address] Chloride [Moles/Vol] 103 mmol/L Normal 98-108 [facility] Comment on above: Order Comment: Order Date: 03/12/25 Order Info: 0786-1 - CMP Order Info: 301-3 - TSH Order Info: 3024-7 - T4F Performed By: #### L [id number], L506.0400, L500.4050 #### [facility] [address] [place], [address] CO2 [Moles/Vol] 23.2 mmol/L Normal 21.0-32.0 [facility] Comment on above: Order Comment: Order Date: 03/12/25 Order Info: 07-1 - CMP Order Info: 3 - TSH Order Info: 3024-7 - T4F Performed By: #### L [id number], L506.0400, L500.4050 #### [facility] [address] [place], [address] Creatinine [Mass/Vol] 0.81 mg/dL Normal 0.70-1.20 [place] Comment on above: Order Comment: Order Date: 03/12/25 Order Info: 0786-1 - CMP Order Info: 301-3 - TSH Order Info: 3024-7 - T4F Performed By: #### L [id number], L506.0400, L500.4050 #### [facility] [address] [place], [address] GAP 13 Normal 5-15 [facility] Comment on above: Order Comment: Order Date: 03/12/25 Order Info: 0786-1 - CMP Order Info: 3016-3 - TSH Order Info: 3024-7 - T4F Performed By: #### L 501.9520, L506.0400, L500.4050 #### [facility] [address] [place], [address] GFR/1.73 sq M.predicted among non-blacks MDRD (S/P/Bld) [Vol rate/Area] 75 mL/min/{1.73_m2} Normal >60 [facility] Comment on above: Order Comment: Order Date: 03/12/25 Order Info: 0786-1 - CMP Order Info: 3015-3 - TSH Order Info: 3024-7 - T4F Result Comment: mL/m in/1.73m2 CKD-EPI Creatinine Equation (2020) Performed By: #### L 501.9520, L506.0400, L500.4050 #### [facility] [address] [place], [address] Globulin (S) [Mass/Vol] 2.9 g/dL Normal 2.2-4.2 [facility] Comment on above: Order Comment: Order Date: 03/12/25 Order Info: 0786-1 - CMP Order Info: 3 - TSH Order Info: 3024-7 - T4F Performed By: #### L [id number], L506.0400, L500.4050 #### [facility] [address] [place], [address] Glucose [Mass/Vol] 131 mg/dL High 70-99 [facility] Comment on above: Order Comment: Order Date: 03/12/25 Order Info: 0786-1 - CMP Order Info: 3 - TSH Order Info: 3024-7 - T4F Performed By: #### L [id number], L506.0400, L500.4050 #### [facility] [address] [place], [address] Potassium [Moles/Vol] 3.6 mmol/L Normal 3.3-5.1 [place] Comment on above: Order Comment: Order Date: 03/12/25 Order Info: 0786-1 - CMP Order Info: 3 - TSH Order Info: 3024-7 - T4F Performed By: #### L [id number], L506.0400, L500.4050 #### [facility] [address] [place], [address] Sodium [Moles/Vol] 140 mmol/L Normal 133-145 [facility] Comment on above: Order Comment: Order Date: 03/12/25 Order Info: 0786-1 - CMP Order Info: 3016-3 - TSH Order Info: 3024-7 - T4F Performed By: #### L 501.9520, L506.0400, L500.4050 #### [facility] [address] [place], [place], [address] T PROT 7.5 g/dL Normal 5.9-8.4 [facility] Comment on above: Order Comment: Order Date: 03/12/25 Order Info: 0786-1 - CMP Order Info: 3 - TSH Order Info: 3024-7 - T4F Performed By: #### L 501.9520, L506.0400, L500.4050 #### [facility] [address] [place], [address] Urea nitrogen [Mass/Vol] 15 mg/dL Normal 4-19 [facility] Comment on above: Order Comment: Order Date: 03/12/25 Order Info: 0786-1 - CMP Order Info: 301-3 - TSH Order Info: 3024-7 - T4F Performed By: #### L 501.9520, L506.0400, L500.4050 #### [facility] [address] [place], [address] Glomerular filtration rate ( GFR) estimation/1.73 sq m using serum, plasma, or whole bOrdered By: Thi Tang on 03-12-2025 GFR/1.73 sq M.predicted among non-blacks MDRD (S/P/Bld) [Vol rate/Area] 75 mL/min/{1.73_m2} >60 [facility] Comment on above: mL/min/1.73m2 CKD-EP I Creatinine Equation (2020) Laboratory - Chemistry and C hemistry - challengeOrdered By: Thi Tang on 03-12-2025 AST [Catalytic activity/Vol] 35 U/L High <32 [facility] Potassium measurement (mass/ volume)Ordered By: Thi Tang on 03-12-2025 Potassium (Unsp spec) [Mass/Vol] 3.6 mmol/L 3.3-5.1 [facility] Serum creatinine measurement (mass/volume)Ordered By: Thi Tang on 03-12-2025 Creatinine [Mass/Vol] 0.81 mg/dL 0.70-1.20 [place] Serum globulin measurementOr dered By: Tih Tang on 03-12-2025 Globulin (S) [Mass/Vol] 2.9 g/dL 2.2-4.2 [facility] Serum glucose measurement (m ass/volume)Ordered By: Thi Tang on 03-12-2025 Glucose [Mass/Vol] 131 mg/dL High 70-99 [facility] Serum or plasma alanine rock otransferase (ALT) measurementOrdered By: Thi Tang on 03-12-2025 ALT [Catalytic activity/Vol] 35 U/L <35 [facility] Serum or plasma albumin florentino urement (mass/volume)Ordered By: Thi Tang on 03-12-2025 Albumin [Mass/Vol] 4.6 g/dL 3.4-4.8 [facility] Serum or plasma albumin/glob ulin mass ratioOrdered By: Thi Tang on 03-12-2025 Albumin/Globulin [Mass ratio] 1.6 {ratio} 0.9-2.4 [facility] Serum or plasma alkaline marcia sphatase measurementOrdered By: Thi Tang on 03-12-2025 ALP [Catalytic activity/Vol] 69 U/L 35-104 [facility] Serum or plasma calcium florentino urement (mass/volume)Ordered By: Thi Tang on 03-12-2025 Calcium [Mass/Vol] 10.1 mg/dL 7.6-11.0 [facility] Serum or plasma urea nitroge n measurement (mass/volume)Ordered By: Thi Tang on 03-12-2025 Urea nitrogen [Mass/Vol] 15 mg/dL 4-19 [facility] Sodium levelOrdered By: Logan Tang on 03-12-2025 Sodium [Moles/Vol] 140 mmol/L 133-145 [facility] T4 Free Directon 03-12-2025 T4 FREE DIRECT 1.20 ng/dL Normal 0.76-1.46 [facility] Comment on above: Order Comment: Order Date: 03/12/25 Order Info: 0786-1 - CMP Order Info: 30163 - TSH Order Info: 3024-04 - T4F Performed By: #### L 501.9520, L506.0400, L500.4050 #### [facility] [address] [place], [place], [id number] T4 freeOrdered By: Augusto Tang on 03-12-2025 Free T4 [Mass/Vol] 1.20 ng/dL 0.76-1.46 [facility] TSH DL <= 0.005 mIU/L QnOrde red By: Thi Tang on 03-12-2025 TSH Qn 3.140 uIU/mL 0.300-4.200 [facility] Thyroid Stim Hormone (TSH)on 03-12-2025 TSH 3.140 uIU/mL Normal 0.300-4.200 [facility] Comment on above: Order Comment: Order Date: 03/12/25 Order Info: 0786-1 - CMP Order Info: 30163 - TSH Order Info: 3024-04 - T4F Performed By: #### L 501.9520, L506.0400, L500.4050 #### [facility] [address] [place], [place], [id number] Total proteinOrdered By: Simone Tang on 03-12-2025 Protein [Mass/Vol] 7.5 g/dL 5.9-8.4 [facility] Vitamin B12on 03-12-2025 Cobalamin (Vitamin B12) [Mass/Vol] 720 pg/mL Normal 180-914 [facility] Comment on above: Order Comment: Order Date: 03/12/25 Order Info: 0786-1 - CMP Order Info: 3016-3 - TSH Order Info: 3024-04 - T4F Performed By: #### L 506.1001, L503.0106 #### [facility] [address] [place], [place], [address] Vitamin B12 ser/plasOrdered By: Thi Tang on 03-12-2025 Cobalamin (Vitamin B12) [Mass/Vol] 720 pg/mL 180-914 [facility] Vitamin D,25 Hydroxyon 03-12 Vitamin D 25-OH 37.8 ng/mL Normal 30-100 [facility] Comment on above: Order Comment: Order Date: 03/12/25 Order Info: 0786-1 - CMP Order Info: 3016-3 - TSH Order Info: 3024-04 - T4F Result Comment: Louann min D Status Deficiency: <20 ng/mL (50nmol/L) Insufficiency: 20-30 ng/mL (50-75 nmol/L) Sufficiency: 30-100 ng/mL (75-250 nmol/L) Toxicity: >100 ng/mL (>250 nmol/L) Performed By: #### L 506.1001, L503.0106 #### [facility] [address] [place], [address] [facility] VANDANAN Telephone (HELEN) LISA ALAS ([id number]) 1950 F Date Time Provider Department 02/19/25 BRITTANI GUADARRAMA During your visit today, we recorded the following information about you: Brittani Guadarrama APRN.CNP 02/19/2025 10:12 AM Signed Please fax my progress note to her PCP Thanks Brittani Guadarrama APRN.Lotus Villarreal RN 02/20/2025 12:33 PM Signed Patient calls to let provider know that the daridorexant 25 mg is not covered by her insurance and out of pocket is greater than $2000. She is not able to afford that. Patient contacted her insurance company and they said Belsomra would be covered with PA submission. Patient asking if prescription for Belsomra could be sent to [facility]. Faxed progress note below to Dr. Tang as well. Lotus Hernandez, Brittani Jameson APRN.VANDANA 02/28/2025 12:51 PM Signed Belsomra rx sent Brittani Guadarrama APRN.Yvette Wright OCCA 02/28/2025 1:09 PM Signed PA initiated through [employer] and questions answered/OV note from 02/18 attached. Please watch for insurance determination. SAQIB Crain Gillian, OCCA 02/28/2025 1:22 PM Signed PA approved from 01/29/2025-02/28/2026. TC to patient who is informed of such. SAQIB Crain Allergies As of Date: 02/19/2025 Noted Allergy Reaction DOMPERIDONE 01/30/2003 Comments: sob, muscle tightness METOCLOPRAMIDE 01/30/2003 Comments: unable to breathe TRAZODONE 07/12/2003 Comments: extreme sleepiness Date Reviewed: 02/18/2025 Reviewed by: Brittani Guadarrama APRN.VANDANA - Fully Assessed Primary Visit Diagnosis:Chronic insomnia [F51.04] Order(s):suvorexant (BELSOMRA) 20 mg tabTake 1 tablet by mouth daily at bedtime for 90 days.Disp: 30 tabletRfl: 2 Prescriptions as of 02/28/2025 - suvorexant (BELSOMRA) 20 mg tab Take 1 tablet by mouth daily at bedtime for 90 days. - multivit-min/iron/FA/ vit K/lut (CENTRUM MINIS WOMEN 50 PLUS ORAL) Take by mouth once daily. - COLLAGEN MISC - B-complex with vitamin C (HIGH POTENCY B COMPLEX WITH C ORAL) Take by mouth. - cranberry fruit extract (CRANBERRY CONCENTRATE ORAL) Take by mouth. - Ascorbic Acid (VITAMIN C) 1,000 mg tablet Take 1,000 mg by mouth once daily. - calcium-cholecalcifer ol, D3, (OSCAL+D 250) 250 mg-3.125 mcg (125 unit) per tablet Take 1 tablet by mouth once daily. - FIBER CHOICE ORAL Take by mouth. - magnesium aspart,citrate,oxide 400 mg magnesium cap Take by mouth. - fenofibrate nanocrystallized (TRICOR) 145 mg tablet Take 145 mg by mouth once daily. - amLODIPine (NORVASC) 5 mg tablet Take 5 mg by mouth once daily. - potassium chloride(KLOR-CON 10 10 MEQ TAB) twp tab. twice daily - levothyroxine sodium(SYNTHROID 150 MCG TAB) Take one(1) tablet daily. - MAGNESIUM OXIDE 400 MG TAB Take one(1) tablet daily. 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 Medications Discontinued During This Encounter Prescriptions - daridorexant (QUVIVIQ) 25 mg tablet (Discontinued) Take 1 tablet by mouth daily at bedtime for 90 days. Encounter Status:Closed by YVETTE ALICIA on 02/28/25 [facility] CNOVon 02-18-2025 CNOV Office Visit (SLEWST ) LISA ALAS ([id number]) 1950 F Date Time Provider Department 02/18/25 2:00 PM BRITTANI GUADARRAMA During your visit today, we recorded the following information about you: Pulse Respiration Blood pressure Weight 63/minute 16/minute 147/83 77.1 kg Brittani Guadarrama APRN.CNP 02/19/2025 10:12 AM Signed [facility] Follow up/ Established patient visit Date of last visit : 11/19/2024 The following Impression/Plan was copied and pasted from the patient's last [facility] Disorders Center visit on 11/19/24: ASSESSMENT/PLAN: 1. Cognitive impairment, mild, so stated - ICD9: 331.83, ICD10: G31.84 (primary diagnosis) Patient with cognitive complaints as above, of which etiology is uncertain at this time. Subjective history inconsistent, but would suggest that cognitive complaints are worse than what MOCA testing indicates (borderline abnormal). Etiology of cognitive complaints uncertain. Denies anxiety and depression, but has been on meds for both per PCP notes (last from 02/2024) and thus need to consider pseudodementia. Also in ddx would be vitamin deficiency, thyroid disease (metabolic cause). No PCP labs to confirm any prior testing and thus will at least send of B12 and thyroid labs today. Pt states had neurocognitive testing, but I have no results. Possible that symptoms are secondary to excessive amounts of OTC sedating meds patient is taking nightly. Also need to consider early neurodegenerative process or other intracranial cause. In addition to requesting neurocognitive testing results, will also proceed with MRI brain quant to evaluate for intracranial cause of pattern of atrophy that might suggest a neurodegenerative process. Encouraged brain exercises. Follow up 3 months or sooner prn. 2. Insomnia, unspecified type - ICD9: 780.52, ICD10: G47.00 Etiology uncertain, and pt a limited historian. Initially tells me insomnia only present for the past year, but later finding out that this has been an issues for entire life. Pt appears anxious but denies such. Denies worrying or racing thoughts initially but then states cannot turn off mind. Again, as with cognitive impairment, question if underlying depression or anxiety contributing to symptoms. As sedating meds are likely further impairing cognition, would not recommend Rx meds such as Ambien, Lunesta, Benzos... I also feel patient is taking way too many OTC meds with pt indicating she is taking melatonin 40 nightly. Rather than Rx more meds, feel pt might benefit from evaluation with behavioral sleep medicine. Referral will be place for evaluation to determine if they feel treatment through [facility] or other is possible. Pt agrees with plan. Olman Sullivan MD Recording using [employer] software for draft documentation of the visit was discussed with the patient/authorized installation service representative; all questions welcomed and answered. Patient/authorized installation service representative agreed to proceed Here for follow up for chronic insomnia - Chronic Insomnia - Patient is a 74-year-old female presenting with concerns of chronic insomnia. - Reports having trouble sleeping for several years. - Typically goes to bed around 22:30-23:00 and wakes up around 04:30. - Sometimes wakes up at 02:30 and stays awake for 2 hours or more. - Uses the bathroom sometimes when she wakes up, but other times she is just awake. Her bedtime med regimen for insomnia: --She always takes Advil PM 2 pills which is a total of 400 mg ibuprofen and 76 mg of diphenhydramine --Almost always takes Alteril 1 pill which is melatonin 5 mg, valerian, and L-tryptophan --Makes sleepytime tea and adds hot cocoa herb supplement -- contains magnesium 72 mg, zinc, --L-theanine, L-tryptophan, and flower/seed/root extracts --I wash my pills down with a big sip of liquid children's benedryl (12.5 mg/5 ml) -- that helps her get the pills down otherwise they stick --If she hasn't fallen asleep in 30 min then she takes Sleep gummy (usually 1 but sometimes 2) which contains melatonin 3 mg, L-theanine, camomile - Reports that without taking these medications, she could lie awake all night. - On a good night, she might get 8 hours of sleep, but on a bad night, she might get only 4 hours. - Does not take naps during the day as she believes it might affect her nighttime sleep. - Denies restless legs, but reports some possible neuropathy in her feet, which does not bother her when trying to sleep. Meds tried for insomnia: Trazodone -- felt sleepy all day Gabapentin for pain -- helped with pain but not with insomnia Belsomra 10 mg -- thinks it probably didn't help Zolpidem 2002, zolpidem CR 2008 -- thinks it was hard to wake up, doesn't like the idea of taking it Doesn't recall if she ever took doxepin, amitriptyline Saw SDC in 2002, had a dx of narcol (more content not included)... Normal [facility] CNOVon 02-15-2025 CNOV Office Visit (NEURMM ) LISA ALAS ([id number]) 1950 F Date Time Provider Department 02/15/25 1:30 PM HEIDE FELIX NEUR During your visit today, we recorded the following information about you: Pulse Blood pressure 63/minute 132/78 Heide Felix, [employer]ED 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.CL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 02/15/2025 3:33 PM Signed [facility] [place] Follow-up Visit Follow-up note February 15, 2025 HPI: Ms. Alas presents today for a follow-up visit. Per her previous visit with Dr. Sullivan on 11/19/24: ASSESSMENT/PLAN: 1. Cognitive impairment, mild, so stated - ICD9: 331.83, ICD10: G31.84 (primary diagnosis) Patient with cognitive complaints as above, of which etiology is uncertain at this time. Subjective history inconsistent, but would suggest that cognitive complaints are worse than what MOCA testing indicates (borderline abnormal). Etiology of cognitive complaints uncertain. Denies anxiety and depression, but has been on meds for both per PCP notes (last from 02/2024) and thus need to consider pseudodementia. Also in ddx would be vitamin deficiency, thyroid disease (metabolic cause). No PCP labs to confirm any prior testing and thus will at least send of B12 and thyroid labs today. Pt states had neurocognitive testing, but I have no results. Possible that symptoms are secondary to excessive amounts of OTC sedating meds patient is taking nightly. Also need to consider early neurodegenerative process or other intracranial cause. In addition to requesting neurocognitive testing results, will also proceed with MRI brain quant to evaluate for intracranial cause of pattern of atrophy that might suggest a neurodegenerative process. Encouraged brain exercises. Follow up 3 months or sooner prn. 2. Insomnia, unspecified type - ICD9: 780.52, ICD10: G47.00 Etiology uncertain, and pt a limited historian. Initially tells me insomnia only present for the past year, but later finding out that this has been an issues for entire life. Pt appears anxious but denies such. Denies worrying or racing thoughts initially but then states cannot turn off mind. Again, as with cognitive impairment, question if underlying depression or anxiety contributing to symptoms. As sedating meds are likely further impairing cognition, would not recommend Rx meds such as Ambien, Lunesta, Benzos... I also feel patient is taking way too many OTC meds with pt indicating she is taking melatonin 40 nightly. Rather than Rx more meds, feel pt might benefit from evaluation with behavioral sleep medicine. Referral will be place for evaluation to determine if they feel treatment through [facility] or other is possible. Pt agrees with plan. Patient arrived 20 min late and time is limited at appointment today. States she has been forgetful; notes this in the kitchen. If she stops things will come to her if she things about them. Takes a minute or two to come up with something. Sometimes when cooking forgets why she went to the fridge. She is driving a little; not getting lost in familiar places. No MVA. No hallucinations. Maybe irritable; increased stress can agitate her. Mostly in the car. No confusion when agitated. No wandering or acting out dreams at night. Does not remember dreams. Has left stove/oven on. Not missing ingredients. long-term memory is not as good as it used to be. 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 Can remember childhood. States she is still taking melatonin at bedtime; 10mg. Also taking Advil PM. She does take thyroid medicine daily. States her PCP had the results at her last appointment. States AD runs in her family. States mother passed before she got older. Thinks dad had it. States her grandma had dementia. MOCA 02/15/25 Visuospatial/exec (5-5) (5/5) Naming (0-3) (/3) Memory Words, up to 2 trials: Face, Velvet, Buddhist, Kt, Red (no points) 4/5 first try, 5/5 second try Attention forwards: 2 1 8 5 4 (0-1) (10/03) Attention backwards: 7 4 2 (0-1) (10/03) Tap for the A: F B A C M N A A J K L B A F A K D E A A A J A M O F A A B (1 point if 0 or 1 error) (10/03) Serial subtraction by 7: [id number] (3 points for correct 4 or 5; 2 points for 2 or 3 correct; 1 point for 1 correct) [id number] (12/03) Language: repeat: I only know that [place]avan is the one to help today (0-1) (10/03) Language: repeat: The cat always hid under the couch when dogs were in the room (0-1) (10/03) Fluency: max words beginning with the letter F (1 point if 11 or more words) lllll lllll ll (10/03) Abstraction: practice banana-orange=fruit. Then train-bicycle (1) AND watch-ruler (1) total: (2) (11/04) Delayed recall: recall words: face, velvet, orthodoxy, kt, red (0-5) got red with cat clue (/5) Orientation: date(1), month(1), year(1), day(1), place(1), city(1) max 6 poin (more content not included)... Normal [facility] [place] 01-31-2025 LD Telephone (ZAYNAB) LISA ALAS ([id number]) 1950 F Date Time Provider Department 01/31/25 OLMAN SULLIVAN JR During your visit today, we recorded the following information about you: Lefty Montero 01/31/2025 1:47 PM Signed Patient was called about needed reschedule for [facility] appointment on 02/14/25, patient stressed she could not travel to any of the closest neuro providers that were pulled. Also patient stressed that she was supposed to receive results of brain test; Dr Tang her PCP would like explained by Neuro. Olman Sullivan Jr., MD 01/31/2025 3:[address] on wait list and also see if she would be willing to see Heidi Felix CNP Thank you W Gilberto Walter MD, LPN 01/31/2025 4:16 PM Signed TC to Pt. Pt agreed to schedule with KD. Gilberto Kothari LPN Allergies As of Date: 01/31/2025 Noted Allergy Reaction DOMPERIDONE 01/30/2003 Comments: sob, muscle tightness METOCLOPRAMIDE 01/30/2003 Comments: unable to breathe TRAZODONE 07/12/2003 Comments: extreme sleepiness Date Reviewed: 11/19/2024 Reviewed by: Olman Sullivan Jr., MD - Fully Assessed Reason for Visit: Results [95] Prescriptions as of 01/31/2025 - KRILL OIL ORAL Take by mouth once daily. - ranitidine (ZANTAC) 150 mg tablet Take 1 tablet by mouth once daily. - hydrOXYzine HCl (ATARAX) 10 mg tablet Take one to two tablets at bedtime and every 6 hours as needed for itching, hives - predniSONE (DELTASONE) 10 mg tablet Take 6 tablets once a day for 5 days, then 4 tabs daily for 2 days, 3 tabs daily for 2 days, 2 tabs daily for 2 days, then 1 tab daily for 2 days - potassium chloride(KLOR-CON 10 10 MEQ TAB) twp tab. twice daily - levothyroxine sodium(SYNTHROID 150 MCG TAB) Take one(1) tablet daily. - MAGNESIUM OXIDE 400 MG TAB Take one(1) tablet daily. pt unsure of dosage - fenofibrate nanocrystallized(TRIC OR 145 MG TAB) Take one(1) tablet daily. - ATENOLOL 25 MG TAB two daily Problem List As Of Date 01/31/2025 Noted Resolved DELAYED SLEEP PHASE SYNDROME [G47.20] 08/20/2003 MONOCLON PARAPROTEINEMIA [D47.2] 11/20/2008 ARTERITIS NOS [I77.6] 11/20/2008 Encounter Status:Closed by GILBERTO KOTHARI on 01/31/25 [facility] Orthopedic Visit Reporton Orthopedic Visit Report [facility] [address] [place] [address] [address] [place] [address] OFFICE VISIT Date of Service: 01/03/25 MR#: [id number] Acct: [id number] Name: LISA ALAS Rep #: [id number] : 1950 Provider: DINO Riggs Age/Sex: 74/F Location: [facility] [place].[facility] Status: Signed Intake Vital Signs 10/19/22 13:51 01/03/25 13:12 Height 5 ft 1 in 5 ft 2 in Weight: 170 lb BMI 31.1 Intake Visit Reasons: LUMBAR SPINE Chief Complaint: Lumbar Spine Pain Accompanied by: Self Is patient in pain?: Yes Pain scale (1-10): 6 Allergies trazodone Allergy (Severe, Verified 01/03/25 13:22) Anaphylaxis chocolate flavor Allergy (Unknown, Verified 01/03/25 13:22) Unknown peanut Allergy (Unknown, Verified 01/03/25 13:22) Unknown bupropion HCl (From Wellbutrin) Allergy (Verified 01/03/25 13:22) Other dicyclomine HCl (From Bentyl) Allergy (Verified 01/03/25 13:22) Abd cramps/diarrhea domperidone Allergy (Verified 01/03/25 13:22) Anaphylaxis cephalexin monohydrate (From Keflex) Adverse Reaction (Verified 01/03/25 13:22) Other coffee (Coffea arabica) Adverse Reaction (Verified 01/03/25 13:22) Other desvenlafaxine succinate (From Pristiq) Adverse Reaction (Verified 01/03/25 13:22) Other duloxetine HCl (From Cymbalta) Adverse Reaction (Verified 01/03/25 13:22) Other garlic Adverse Reaction (Verified 01/03/25 13:22) Other rabeprazole sodium (From Aciphex) Adverse Reaction (Verified 01/03/25 13:22) Other tomato Adverse Reaction (Verified 01/03/25 13:22) Other Medications ???Medication ???Instructions ???Recorded ???Confirmed ???Type atenolol 50 mg tablet 50 mg PO BID 05/19/14 01/03/25 His tory levothyroxine 175 mcg tablet 175 mcg PO DAILY 05/19/14 01/03/25 History (Levoxyl) cholecalciferol (vitamin D3) 1,250 50,000 unit PO QWEEK 04/02/16 History mcg (50,000 unit) capsule (Optimal D3) calcium carbonate (Calcium 600) 600 mg PO DAILY 08/19/22 01/03/25 History magnesium oxide 250 mg PO DAILY 08/19/22 01/03/25 History vitamin B complex 1 cap PO DAILY 08/19/22 01/03/25 H istory amlodipine 5 mg tablet 5 mg PO DAILY 10/13/22 01/03/25 Hi story cranberry fruit 400 mg capsule 400 mg PO DAILY 10/13/22 01/03/25 History gabapentin 300 mg capsule 300 mg PO QDAY PRN 01/03/25 History melatonin 5 mg capsule mg PO PRN 01/03/25 01/03/25 Histor y methylprednisolone 4 mg tablets in mg PO DIRECTED 01/03/2501/03 History a dose pack Have you fallen in the past year?: Yes PFSH Medical History Bruising Thyroid disease Arthritis Bladder disease Loss of consciousness Non-smoker Shortness of breath on exertion History of stress test History of echocardiogram History of irregular heartbeat IBS (irritable bowel syndrome) HTN (hypertension) Surgical History History of tonsillectomy and adenoidectomy History of sinus surgery History of dilatation and curettage History of salpingectomy History of left knee surgery Social History Smoking Status: Never smoker HPI LUMBAR SPINE Details: This documentation accurately reflects the service provided and the decisions made by me, DINO Riggs 01/03/25 [id number]. Part of today???s visit was documented by Ale Maxwell ATC, acting as scribe. LISA ALAS is a 74 year old F here today for lumbar spine pain. Patient states the back has been bothering her for quite a while. She denies any specific injury that caused the pain. She states she has a spine that forms an S and has been told this is what is causing most of her problems. Says that she was diagnosed with scoliosis as a young girl. She states she fell about 3-4 months ago and the pain was worse for 2 days and it seemed to clear up after. She states she has been having issues with her back, hips and legs for at least 6 months. Patient has been getting injections every few months with Dr. Powell and they give her quite a bit of relief for 2-4 weeks or so. She has had 2 injections and has a third one scheduled coming up soon. She complains of pain down into the legs from the waist down and states the pain is never in both legs at the same time. She complains of tingling in her feet and ankles. Prior to injections she had tingling throughout her whole legs. She states she has done physical therapy in the past and it made her pain worse and did not give her any relief. She denies any surgery. Patient did have imaging done at [facility] but was unable to get the images on a disc to bring to her appointment today. She states she had an MRI done there. Numbness on tops of feet, equal on both sides. Leaning on a shopping cart helps (more content not included)... Normal [facility] MR Brain WO contraston 12-04 * * *Final Report* * * DATE OF EXAM: Dec 04 2024 1:54PM [id number] - MRI BRAIN W QUANT WO IVCON / PROCEDURE REASON: Cognitive impairment, mild, so stated * * * * Physician Interpretation * * * * EXAMINATION: MRI BRAIN W QUANT WO IVCON, MRI 3D BRAIN QUANT CLINICAL HISTORY: Cognitive impairment, mild, so stated TECHNIQUE: Axial JEN FLAIR, JEN T2, diffusion and susceptibility weighted imaging without contrast, using the ADNI dementia protocol and 3-D post-processing using the Everstring software at an independent workstation with concurrent physician supervision and images were created, reviewed and archived. MQ: [id number] COMPARISON: None RESULT: QUALITATIVE: Acute Intracranial Process: None. Chronic Intracranial Process: Scattered punctate foci of increased T2 and FLAIR signal are noted in the supratentorial white matter which is a nonspecific finding, but likely represents minimal chronic microvascular ischemia. Number of chronic lacunar infarcts: None Location of chronic lacunar infarcts: Not applicable Age related white matter changes (ARWMC) rating: White matter lesions: 1 Basal ganglia lesions: 0 Prior intracranial hemorrhage: Parenchymal microhemorrhages: 0 Other (siderosis/macrohemor rhages (>10mm): Not Applicable Amyloid Related Imaging Abnormalities: ARIA-E: N/A ARIA-H Microhemorrhage: N/A ARIA-H Siderosis: N/A Qualitative brain and hippocampal volume loss for age: Cortex: Normal and symmetric White Matter: Mild and symmetric Hippocampi: Severe and Symmetric Ventricles: Commensurate with volume loss. Brain Parenchymal Signal and Morphology: The brain parenchyma is otherwise within normal limits of signal and morphology. There is no evidence of an intracranial mass or extraaxial fluid collection. Other Significant Findings: Air-fluid level in the LEFT sphenoid sinus with minimal dorsal thickening. Mastoid air cells appear clear. Bilateral pseudophakia. Otherwise, the orbits appear unremarkable. The skull base appears unremarkable. Extracranial soft tissues appear within normal limits. . QUANTITATIVE: Exam Quality: Good for volumetric analysis. Segmentation: Negligible mismapping by visual inspection. Quantitative Data: Total Hippocampal Volume: Percentile for Age: 3 Asymmetry Index: -6.66 Inferior Lateral Vent Volume: Percentile for age: 69 Asymmetry Index: -39.2 Superior Lateral Vent Volume: Percentile for age: 32 Asymmetry Index: 4.99 Temporal Lobe Cortex Volume: Temporal Lobe Percentile for Age: 19 Temporal Lobe Asymmetry Index: 0.47 Frontal Lobe Cortex Volume: Frontal Lobe Percentile for Age: 86 Frontal Lobe Asymmetry Index: 0.95 Parietal Lobe Cortex Volume: Parietal Lobe Percentile for Age:72 Occipital Lobe Cortex Volume: Occipital Lobe Percentile for Age: 95 Whole Brain Volume Brain Percentile for Age: 83 Concordance between qualitative and quantitative hippocampal volume assessment: Concordant Change in brain volumes: No previous volumetric study for comparison See below for comparison of brain volumes in relation to the prior volumetric study: Not applicable. The prior study was reprocessed with the current algorithm version for adequate comparison. Please note that small variations may be due to standard measurement error. Brain Volume: Current percentile: N/A Previous percentile: N/A Hippocampal Volume: Current percentile: N/A Previous percentile: N/A Superior Lateral Ventricle Volume Change: Current percentile: N/A Previous percentile: N/A Inferior Lateral Ventricle Volume Change: Current percentile: N/A Previous percentile: N/A Mean hippocampal volume loss among normal elderly: 0.7% per year, (-0.3 to 1.7; Saba 2008; also Matt 2010). DIVISION OF RADIOLOGY Provider, [facility] - 12/04/2024 * * *Final Report* * * DATE OF EXAM: Dec 04 2024 1:54PM [id number] - MRI BRAIN W QUANT WO IVCON / PROCEDURE REASON: Cognitive impairment, mild, so stated * * * * Physician Interpretation * * * * EXAMINATION: MRI BRAIN W QUANT WO IVCON, MRI 3D BRAIN QUANT CLINICAL HISTORY: Cognitive impairment, mild, so stated TECHNIQUE: Axial JEN FLAIR, JEN T2, diffusion and susceptibility weighted imaging without contrast, using the ADNI dementia protocol and 3-D post-processing using the Everstring software at an independent workstation with concurrent physician supervision and images were created, reviewed and archived. MQ: [id number] COMPARISON: None RESULT: QUALITATIVE: Acute Intracranial Process: None. Chronic Intracranial Process: Scattered punctate foci of increased T2 and FLAIR signal are noted in the supratentorial white matter which is a nonspecific finding, but likely represents minimal chronic microvascular ischemia. Number of chronic lacunar infarcts: None Location of chronic lacunar infarcts: Not applicable Age related white matter changes (ARWMC) rating: White matter lesions: 1 Basal ganglia lesions: 0 Prior intracranial hemorrhage: Parenchymal microhemorrhages: 0 Other (siderosis/macrohemor rhages (>10mm): Not Applicable Amyloid Related Imaging Abnormalities: ARIA-E: N/A ARIA-H Microhemorrhage: N/A ARIA-H Siderosis: N/A Qualitative brain and hippocampal volume loss for age: Cortex: Normal and symmetric White Matter: Mild and symmetric Hippocampi: Severe and Symmetric Ventricles: Commensurate with volume loss. Brain Parenchymal Signal and Morphology: The brain parenchyma is otherwise within normal limits of signal and morphology. There is no evidence of an intracranial mass or extraaxial fluid collection. Other Significant Findings: Air-fluid level in the LEFT sphenoid sinus with minimal dorsal thickening. Mastoid air cells appear clear. Bilateral pseudophakia. Otherwise, the orbits appear unremarkable. The skull base appears unremarkable. Extracranial soft tissues appear within normal limits. . QUANTITATIVE: Exam Quality: Good for volumetric analysis. Segmentation: Negligible mismapping by visual inspection. Quantitative Data: Total Hippocampal Volume: Percentile for Age: 3 Asymmetry Index: -6.66 Inferior Lateral Vent Volume: Percentile for age: 69 Asymmetry Index: -39.2 Superior Lateral Vent Volume: Percentile for age: 32 Asymmetry Index: 4.99 Temporal Lobe Cortex Volume: Temporal Lobe Percentile for Age: 19 Temporal Lobe Asymmetry Index: 0.47 Frontal Lobe Cortex Volume: Frontal Lobe Percentile for Age: 86 Frontal Lobe Asymmetry Index: 0.95 Parietal Lobe Cortex Volume: Parietal Lobe Percentile for Age:72 Occipital Lobe Cortex Volume: Occipital Lobe Percentile for Age: 95 Whole Brain Volume Brain Percentile for Age: 83 Concordance between qualitative and quantitative hippocampal volume assessment: Concordant Change in brain volumes: No previous volumetric study for comparison See below for comparison of brain volumes in relation to the prior volumetric study: Not applicable. The prior study was reprocessed with the current algorithm version for adequate comparison. Please note that small variations may be due to standard measurement error. Brain Volume: Current percentile: N/A Previous percentile: N/A Hippocampal Volume: Current percentile: N/A Previous percentile: N/A Superior Lateral Ventricle Volume Change: Current percentile: N/A Previous percentile: N/A Inferior Lateral Ventricle Volume Change: Current percentile: N/A Previous percentile: N/A Mean hippocampal volume loss among normal elderly: 0.7% per year, (-0.3 to 1.7; Saba 2008; also Matt 2010). IMPRESSION IMPRESSION: * No evidence of an acute intracranial process or intracranial mass. * Mild generalized volume loss most prominently involving the central white matter with superimposed moderate regional volume loss of the bilateral temporal lobes. * Hippocampal volumes at the 3rd percentile when compared to age matched normal controls by quantitative analysis. * Minimal white matter disease which is nonspecific but likely reflective of chronic microvascular ischemia. * No evidence of parenchymal microhemorrhages by MRI. REFERENCES: White Matter Lesions: 0 = No lesions, including symmetrical, well-defined caps or bands 1 = Focal Lesions 2 = Beginning of [place] 3 = Diffuse Involvement of Entire Region Basal Ganglia Lesions: 0 = No Lesions 1 = 1 Focal Lesion (>5mm) 2 = >1 Focal Lesion (>5mm) 3 = Confluent Lesions Matt Grey et al. The clinical use of structural MRI in Alzheimer disease. Nature Reviews Neurology 6;67 (2010). Saba motley al. Judd (more content not included)... [facility] MR Unspecified body region 3 D post processingon 12-04-2024 * * *Final Report* * * DATE OF EXAM: Dec 04 2024 1:54PM BR [id number] - MRI 3D BRAIN QUANT / PROCEDURE REASON: Cognitive impairment, mild, so stated * * * * Physician Interpretation * * * * EXAMINATION: MRI BRAIN W QUANT WO IVCON, MRI 3D BRAIN QUANT CLINICAL HISTORY: Cognitive impairment, mild, so stated TECHNIQUE: Axial JEN FLAIR, JEN T2, diffusion and susceptibility weighted imaging without contrast, using the ADNI dementia protocol and 3-D post-processing using the Everstring software at an independent workstation with concurrent physician supervision and images were created, reviewed and archived. MQ: [id number] COMPARISON: None RESULT: QUALITATIVE: Acute Intracranial Process: None. Chronic Intracranial Process: Scattered punctate foci of increased T2 and FLAIR signal are noted in the supratentorial white matter which is a nonspecific finding, but likely represents minimal chronic microvascular ischemia. Number of chronic lacunar infarcts: None Location of chronic lacunar infarcts: Not applicable Age related white matter changes (ARWMC) rating: White matter lesions: 1 Basal ganglia lesions: 0 Prior intracranial hemorrhage: Parenchymal microhemorrhages: 0 Other (siderosis/macrohemor rhages (>10mm): Not Applicable Amyloid Related Imaging Abnormalities: ARIA-E: N/A ARIA-H Microhemorrhage: N/A ARIA-H Siderosis: N/A Qualitative brain and hippocampal volume loss for age: Cortex: Normal and symmetric White Matter: Mild and symmetric Hippocampi: Severe and Symmetric Ventricles: Commensurate with volume loss. Brain Parenchymal Signal and Morphology: The brain parenchyma is otherwise within normal limits of signal and morphology. There is no evidence of an intracranial mass or extraaxial fluid collection. Other Significant Findings: Air-fluid level in the LEFT sphenoid sinus with minimal dorsal thickening. Mastoid air cells appear clear. Bilateral pseudophakia. Otherwise, the orbits appear unremarkable. The skull base appears unremarkable. Extracranial soft tissues appear within normal limits. . QUANTITATIVE: Exam Quality: Good for volumetric analysis. Segmentation: Negligible mismapping by visual inspection. Quantitative Data: Total Hippocampal Volume: Percentile for Age: 3 Asymmetry Index: -6.66 Inferior Lateral Vent Volume: Percentile for age: 69 Asymmetry Index: -39.2 Superior Lateral Vent Volume: Percentile for age: 32 Asymmetry Index: 4.99 Temporal Lobe Cortex Volume: Temporal Lobe Percentile for Age: 19 Temporal Lobe Asymmetry Index: 0.47 Frontal Lobe Cortex Volume: Frontal Lobe Percentile for Age: 86 Frontal Lobe Asymmetry Index: 0.95 Parietal Lobe Cortex Volume: Parietal Lobe Percentile for Age:72 Occipital Lobe Cortex Volume: Occipital Lobe Percentile for Age: 95 Whole Brain Volume Brain Percentile for Age: 83 Concordance between qualitative and quantitative hippocampal volume assessment: Concordant Change in brain volumes: No previous volumetric study for comparison See below for comparison of brain volumes in relation to the prior volumetric study: Not applicable. The prior study was reprocessed with the current algorithm version for adequate comparison. Please note that small variations may be due to standard measurement error. Brain Volume: Current percentile: N/A Previous percentile: N/A Hippocampal Volume: Current percentile: N/A Previous percentile: N/A Superior Lateral Ventricle Volume Change: Current percentile: N/A Previous percentile: N/A Inferior Lateral Ventricle Volume Change: Current percentile: N/A Previous percentile: N/A Mean hippocampal volume loss among normal elderly: 0.7% per year, (-0.3 to 1.7; Saba 2008; also Matt 2010). DIVISION OF RADIOLOGY Provider, [facility] - 12/04/2024 * * *Final Report* * * DATE OF EXAM: Dec 04 2024 1:54PM BR [id number] - MRI 3D BRAIN QUANT / PROCEDURE REASON: Cognitive impairment, mild, so stated * * * * Physician Interpretation * * * * EXAMINATION: MRI BRAIN W QUANT WO IVCON, MRI 3D BRAIN QUANT CLINICAL HISTORY: Cognitive impairment, mild, so stated TECHNIQUE: Axial JEN FLAIR, JEN T2, diffusion and susceptibility weighted imaging without contrast, using the ADNI dementia protocol and 3-D post-processing using the Everstring software at an independent workstation with concurrent physician supervision and images were created, reviewed and archived. MQ: [id number] COMPARISON: None RESULT: QUALITATIVE: Acute Intracranial Process: None. Chronic Intracranial Process: Scattered punctate foci of increased T2 and FLAIR signal are noted in the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 density. The World Health Organization (WHO) interprets the T-scores as follows: Above -1 Normal bone density Between -1 and -2.5 Osteopenia Equal to / or below -2.5 Osteoporosis As a practical clinical guideline, osteopenia may be graded as follows: Mild -1 through -1.5 Moderate -1.6 through -2.0 Severe -2.1 through -2.4 The Z-score is the number of standard deviations above or below age-matched controls. A Z-score of less than -1.5 would be considered abnormal. References: 1. NIH Osteoporosis and Related Bone Diseases www osteo.org 2. International Society for Clinical Densitometry www iscd.org 3. National Osteoporosis Foundation www nof.org Electronically Signed: Papito Montilla MD at 14:44 EST , CC: Dr. Thi Tang MD Finishing Machine Operator: Signed Normal [facility] SCRN MAMM (CAD)W/PHILLY BILATo n 09-19-2024 SCRN MAMM (CAD)W/PHILLY BILAT [facility] Imaging Services [address] [place], [place] [address] SCRN MAMM (CAD)W/PHILLY BILAT MR#: [id number] Acct: [id number] Name: LISA ALAS Rep #: [id number] : 1950 F 73 From: Papito nath MD PCP: Dr. Thi Tang MD Status: [facility] Study: SCRN MAMM (CAD)W/PHILLY BILAT Date of Exam: 09/02 05/26 Exam# [id number] Ordering Dr: Thi Tang [id number] MAMMOGRAPHY - BILATERAL SCREENING REASON FOR EXAM: Female, 73 years old. Routine annual screening examination. PERTINENT HISTORY: Non-contributory. TECHNIQUE: Digital bilateral breast philly (3D mammographic acquisition) in the CC and MLO projections. 2-D mediolateral oblique (MLO) and craniocaudad (CC) views of both breasts were obtained. CAD: Full Field Digital Mammography with Computer Added Detection was performed. COMPARISON: Comparison is made with prior study dated March 06, 2021 and October 04, 2019. FINDINGS: Breast Composition: There are scattered areas of fibroglandular density. There are no dominant masses or suspicious calcifications. Stable bilateral fat-containing axillary lymph nodes. No other significant abnormalities are identified. There has been no significant change since the prior study. BI/SCRN MAMM (CAD)W/PHILLY BILAT IMPRESSION: Stable bilateral screening mammogram. Yearly follow-up mammogram recommended. (A) ASSESSMENT CATEGORY: BIRADS Category 2: Benign. A letter regarding these results will be sent to the patient by the facility within 30 days. Approximately 10% of breast cancers are not detected by mammography. A normal mammogram should not delay biopsy of a clinically suspicious abnormality. [id number] Electronically Signed: Papito Montilla MD at 13:55 EST Reading Location ID and State: [address] [place] [address] , Service support , CC: Dr. Thi Tang MD Finishing Machine Operator: Signed Normal [facility] Microalbumin,Random Urineon 08-03-2024 MICROALBUMIN,UR 19.9 mg/L Normal NO RANGE EST. [facility] Comment on above: Performed By: #### L 506.1001, L503.0106 #### [facility] [address] [place], [place], [id number] CBC-Complete Blood Cnt No Di ffon 08-02-2024 Erythrocyte distribution width (RBC) [Ratio] 12.5 % Normal 11.6-14.6 [facility] Comment on above: Performed By: #### L 506.1001, L503.0106 #### [facility] [address] [place], [place], [address] Hematocrit (Bld) [Volume fraction] 43.2 % Normal 37-47 [facility] Comment on above: Performed By: #### L 506.1001, L503.0106 #### [facility] [address] [place], [address] Hemoglobin (Bld) [Mass/Vol] 14.2 g/dL Normal 12.0-15.0 [facility] Comment on above: Performed By: #### L 506.1001, L503.0106 #### [facility] [address] [place], [address] MCH (RBC) [Entitic mass] 30.5 pg Normal 27.0-32.0 [facility] Comment on above: Performed By: #### L 506.1001, L503.0106 #### [facility] [address] [place], [address] MCHC (RBC) [Mass/Vol] 32.9 g/dL Normal 32-36 [place] Comment on above: Performed By: #### L 506.1001, L503.0106 #### [facility] [address] [place], [address] MCV (RBC) [Entitic vol] 92.7 fL Normal 81-99 [facility] Comment on above: Performed By: #### L 506.1001, L503.0106 #### [facility] [address] [place], [address] Platelet mean volume (Bld) [Entitic vol] 9.5 fL Normal 6.2-12.0 [facility] Comment on above: Performed By: #### L 506.1001, L503.0106 #### [facility] [address] [place], [address] Platelets (Bld) [#/Vol] 269 10*3/uL Normal 150-450 [facility] Comment on above: Performed By: #### L 506.1001, L503.0106 #### [facility] [address] [place], [address] RBC (Bld) [#/Vol] 4.66 10*6/uL Normal 4.2-5.4 [facility] Comment on above: Performed By: #### L 506.1001, L503.0106 #### [facility] [address] [place], [address] RDW SD 42.4 fl Normal 35.1-43.9 [facility] Comment on above: Performed By: #### L 506.1001, L503.0106 #### [facility] [address] [place], [address] WBC (Bld) [#/Vol] 4.4 10*3/uL Normal 4.4-11.0 [facility] Comment on above: Performed By: #### L 506.1001, L503.0106 #### [facility] [address] [place], [address] Comprehensive Metabolic Prof [facility] 08-02-2024 Albumin [Mass/Vol] 4.0 g/dL Normal 3.2-5.0 [facility] Comment on above: Performed By: #### L 506.1001, L503.0106 #### [facility] [address] [place], [address] Albumin/Globulin [Mass ratio] 1.1 {ratio} Normal 0.9-2.4 [facility] Comment on above: Performed By: #### L 506.1001, L503.0106 #### [facility] [address] [place], [address] ALK P 51 U/L Normal 45-117 [facility] Comment on above: Performed By: #### L 506.1001, L503.0106 #### [facility] [address] [place], [address] ALT [Catalytic activity/Vol] 31 U/L Normal 13-56 [facility] Comment on above: Performed By: #### L 506.1001, L503.0106 #### [facility] [address] [place], [address] AST [Catalytic activity/Vol] 22 U/L Normal 15-37 [facility] Comment on above: Performed By: #### L 506.1001, L503.0106 #### [facility] [address] [place], [address] Bilirubin [Mass/Vol] 0.40 mg/dL Normal 0.20-1.00 [facility] Comment on above: Result Comment: For patients on eltrombopag therapy, use of Dimension Bude TBIL is not recommended. Performed By: #### L 506.1001, L503.0106 #### [facility] [address] [place], [address] BUN/CRE 17.9 RATIO Normal 10-20 [facility] Comment on above: Performed By: #### L 506.1001, L503.0106 #### [facility] [address] [place], [address] CA,Total 9.1 mg/dL Normal 8.5-10.1 [facility] Comment on above: Performed By: #### L 506.1001, L503.0106 #### [facility] [address] [place], [address] Chloride [Moles/Vol] 111 mmol/L High 98-107 [facility] Comment on above: Performed By: #### L 506.1001, L503.0106 #### [facility] [address] [place], [address] CO2 [Moles/Vol] 21.0 mmol/L Normal 21.0-32.0 [facility] Comment on above: Performed By: #### L 506.1001, L503.0106 #### [facility] [address] [place], [address] Creatinine [Mass/Vol] 0.84 mg/dL Normal 0.55-1.02 [place] Comment on above: Result Comment: The validity of the calculated GFR GFRAA in patients over 70 years has not been determined. Clinical correlation is essential. Performed By: #### L 506.1001, L503.0106 #### [facility] [address] [place], [address] EST GFR - AA 85 mL/min Normal >60 [facility] Comment on above: Result Comment: Afri can [place] GFR Calc Performed By: #### L 506.1001, L503.0106 #### [facility] [address] [place], [address] GAP 8 Normal 5-15 [facility] Comment on above: Performed By: #### L 506.1001, L503.0106 #### [facility] [address] [place], [address] GFR/1.73 sq M.predicted among non-blacks MDRD (S/P/Bld) [Vol rate/Area] 70 mL/min/{1.73_m2} Normal >60 [facility] Comment on above: Result Comment: Non- GFR Calc Performed By: #### L 506.1001, L503.0106 #### [facility] [address] [place], [address] Globulin (S) [Mass/Vol] 3.5 g/dL Normal 2.2-4.2 [facility] Comment on above: Performed By: #### L 506.1001, L503.0106 #### [facility] [address] [place], [address] Glucose [Mass/Vol] 125 mg/dL High 74-106 [facility] Comment on above: Result Comment: Fast ing Glucose result from 100 to 125 mg/dL suggests IMPAIRED HOMEOSTASIS per A.D.A. criteria. Performed By: #### L 506.1001, L503.0106 #### [facility] [address] [place], [address] Potassium [Moles/Vol] 3.6 mmol/L Normal 3.5-5.1 [place] Comment on above: Performed By: #### L 506.1001, L503.0106 #### [facility] [address] [place], [address] Sodium [Moles/Vol] 140 mmol/L Normal 136-145 [facility] Comment on above: Performed By: #### L 506.1001, L503.0106 #### [facility] [address] [place], [address] T PROT 7.5 g/dL Normal 6.4-8.2 [facility] Comment on above: Performed By: #### L 506.1001, L503.0106 #### [facility] [address] [place], [address] Urea nitrogen [Mass/Vol] 15 mg/dL Normal 7-18 [facility] Comment on above: Performed By: #### L 506.1001, L503.0106 #### [facility] [address] [place], [address] Lipid Profileon 08-02-2024 Cholesterol [Mass/Vol] 233 mg/dL High 200 [facility] Comment on above: Result Comment: <200 mg/dL Desirable 200-240 mg/dL Borderline >240 mg/dL High Risk Performed By: #### L 506.1001, L503.0106 #### [facility] [address] [place], [address] Cholesterol in HDL [Mass/Vol] 59 mg/dL Normal [facility] Comment on above: Result Comment: The drugs N-Acetylcysteine and Metamizole may falsely depress this assay. Reference Range HDL <40 mg/dL Low HDL Cholesterol HDL >or= 60 mg/dL High HDL Cholesterol Performed By: #### L 506.1001, L503.0106 #### [facility] [address] [place], [address] Cholesterol in LDL [Mass/Vol] 133 mg/dL High 0-130 [facility] Comment on above: Performed By: #### L 506.1001, L503.0106 #### [facility] [address] [place], [address] Cholesterol in VLDL [Mass/Vol] 41 mg/dL High 5-40 [facility] Comment on above: Performed By: #### L 506.1001, L503.0106 #### [facility] [address] [place], [address] Triglyceride [Mass/Vol] 203 mg/dL High [facility] Comment on above: Result Comment: The drugs N-Acetylcysteine and Metamizole may falsely depress this assay. Serum Triglycerides Reference Interval Normal <150 mg/dL Borderline high 150 - 199 mg/dL High 200 - 499 mg/dL Very High > or = 500 mg/dL Performed By: #### L 506.1001, L503.0106 #### [facility] [address] [place], [address] Thyroid Stim Hormone (TSH)on 08-02-2024 TSH 9.280 uIU/mL High 0.358-3.740 [facility] Comment on above: Performed By: #### L 506.1001, L503.0106 #### [facility] [address] [place], [address] Vitamin B12on 08-02-2024 Cobalamin (Vitamin B12) [Mass/Vol] 771 pg/mL Normal 211-911 [facility] Comment on above: Performed By: #### L 506.1001, L503.0106 #### [facility] [address] [place], [address] Vitamin D,25 Hydroxyon 08-02 Vitamin D 25-OH 23.3 ng/mL Normal [facility] Comment on above: Result Comment: Louann min D 25(OH) Status Range Deficiency <20 ng/mL (50nmol/L) Insufficiency 20 - 30 ng/mL (50 - 75 nmol/L) Sufficiency 30 - 100 ng/mL (75 - 250 nmol/L) Toxicity >100 ng/mL (>250 nmol/L) Performed By: #### L 506.1001, L503.0106 #### [facility] [address] [place], [address] Basophil percentageOrdered B y: Dr. Tang on 12-24-2022 Bilirubin [Mass/Vol] 0.40 mg/dL 0.20-1.00 [facility] Comment on above: For patients on eltr ombopag therapy, use of Dimension Bude TBIL is not recommended. Chloride [Moles/Vol] 107 mmol/L 98-107 [facility] Cholesterol [Mass/Vol] 231 mg/dL <200 [facility] Comment on above: <200 mg/dL Desirable 200-240 mg/dL Borderline >240 mg/dL High Risk Glucose [Mass/Vol] 122 mg/dL 74-106 [facility] Comment on above: Fasting Glucose resu lt from 100 to 125 mg/dL suggests IMPAIRED HOMEOSTASIS per A.D.A. criteria. Potassium [Moles/Vol] 3.7 mmol/L 3.5-5.1 [place] Protein [Mass/Vol] 7.4 g/dL 6.4-8.2 [facility] Sodium [Moles/Vol] 139 mmol/L 136-145 [facility] Triglyceride [Mass/Vol] 436 mg/dL <199 [facility] Comment on above: The drugs N-Acetylcy steine and Metamizole may falsely depress this assay. TRIGLYCERIDE IS GREATER THAN 400 mg/dL. LDL RESULT IS INVALID AND WILL NOT BE REPORTED.Serum Triglycerides Reference Interval Normal <150 mg/dL Borderline high 150 - 199 mg/dL High 200 - 499 mg/dL Very High > or = 500 mg/dL Laboratory - Chemistry and C hemistry - challengeOrdered By: Dr. Tang on 12-24-2022 ALP [Catalytic activity/Vol] 76 U/L 45-117 [facility] ALT [Catalytic activity/Vol] 71 U/L 13-56 [facility] CO2 [Moles/Vol] 26.0 mmol/L 21.0-32.0 [facility] Cobalamin (Vitamin B12) [Mass/Vol] 794 pg/mL 211-911 [facility] Globulin (S) [Mass/Vol] 3.7 g/dL 2.2-4.2 [facility] Urea nitrogen/Creatinine [Mass ratio] 14.2 mg/mg 10-20 [facility] No Panel InformationOrdered By: Dr. Tang on 12-24-2022 Estimated GFR (MDRD) Amer 104 mL/min >60 [facility] Comment on above: GFR Calc Estimated GFR (MDRD) Non-Af Amer 86 mL/min >60 [facility] Comment on above: Non- GFR Calc Thyroid Stimulating Hormone (TSH) 0.39 uIU/mL 0.358-3.74 [facility] Vitamin D 25-Hydroxy 60.3 ng/mL [facility] Comment on above: Vitamin D 25(OH) Sta tus Range Deficiency <20 ng/mL (50nmol/L) Insufficiency 20 - 30 ng/mL (50 - 75 nmol/L) Sufficiency 30 - 100 ng/mL (75 - 250 nmol/L) Toxicity >100 ng/mL (>250 nmol/L) Serum or plasma albumin florentino urement (mass/volume)Ordered By: Dr. Tang on 12-24-2022 Albumin [Mass/Vol] 3.7 g/dL 3.2-5.0 [facility] Serum or plasma albumin/glob ulin mass ratioOrdered By: Dr. Tang on 12-24-2022 Albumin/Globulin [Mass ratio] 1.0 {ratio} 0.9-2.4 [facility] Serum or plasma calcium florentino urement (mass/volume)Ordered By: Dr. Tang on 12-24-2022 Calcium [Mass/Vol] 9.2 mg/dL 8.5-10.1 [facility] Serum or plasma cholesterol in HDL measurement (mass/volume)Ordered By: Dr. Tang on 12-24-2022 Cholesterol in HDL [Mass/Vol] 35 mg/dL >40 [facility] Comment on above: The drugs N-Acetylcy steine and Metamizole may falsely depress this assay. Reference Range HDL <40 mg/dL Low HDL Cholesterol HDL >or= 60 mg/dL High HDL Cholesterol Serum or plasma cholesterol in VLDL measurement (mass/volume)Ordered By: Dr. Tang on 12-24-2022 Cholesterol in VLDL [Mass/Vol] [facility] Comment on above: Test not performed Serum or plasma creatinine m easurement (mass/volume)Ordered By: Dr. Tang on 12-24-2022 Creatinine [Mass/Vol] 0.70 mg/dL 0.55-1.02 [place] Comment on above: The validity of the calculated GFR & GFRAA in patients over 70 years has not been determined. Clinical correlation is essential. Serum or plasma low density lipoprotein (LDL) cholesterol measurement (mass/volume)Ordered By: Dr. Tang on 12-24-2022 Cholesterol in LDL [Mass/Vol] [facility] Comment on above: Test not performed Serum or plasma urea nitroge n measurement (mass/volume)Ordered By: Dr. Tang on 12-24-2022 Urea nitrogen [Mass/Vol] 10 mg/dL 7-18 [facility] Thin prep Papanicolaou smear with manual screeningOrdered By: Dr. Tang on 12-24-2022 Thin prep Papanicolaou smear with manual screening 44 U/L 15-37 [facility] Thin prep Papanicolaou smear with manual screening 6 5-15 [facility] Ova and parasitesOrdered By: Donna Sales on 08-16-2022 Ova and parasites identified LM Nom (Unsp spec) [facility] No Panel InformationOrdered By: Donna Sales on 08-12-2022 Miscellaneous Test See comment [facility] Comment on above: TEST RESULT LIMITSSt ool CultureSalmonella/Shigella Screen Final reportResult 1 No Salmonella or Shigella recovered.Campylobacter Culture Final reportResult 1 No Campylobacter species isolated.E coli Shiga Toxin EIA Negative Negative ___ TESTING PERFORMED AT [facility]. ORIGINAL REPORT ON FILE IN LAB CONTAINS ADDITIONAL TEST SITE INFORMATION. Stool Helicobacter pylori an tigen detection by immunoassayOrdered By: Donna Sales on 08-12-2022 H. pylori Ag IA Ql (Stl) Negative Negative [facility] Comment on above: Performed at: [address] [id number] Director: Crow Vazquez MD, Phone: [phone] Absolute lymphocyte counton 05-03-2022 Lymphocytes Auto (Unsp spec) [#/Vol] 1.94 10*3/uL 0.83-4.51 [facility] Work Phone: Basophil percentageon 2021 Basophils/100 WBC (Bld) 0.2 % 0-1 [facility] Work Phone: Chloride [Moles/Vol] 105 mmol/L 98-107 [facility] Work Phone: Eosinophils/100 WBC (Bld) 2.0 % 0-5 [facility] Work Phone: Glucose [Mass/Vol] 112 mg/dL 74-106 [facility] Work Phone: Comment on above: Fasting Glucose resu lt from 100 to 125 mg/dL suggests IMPAIRED HOMEOSTASIS per A.D.A. criteria. Neutrophils (Bld) [#/Vol] 2.6 10*3/uL 2.0-7.7 [facility] Work Phone: Neutrophils/100 WBC (Bld) 51.1 % 47-70 [facility] Work Phone: Potassium [Moles/Vol] 3.7 mmol/L 3.5-5.1 Paige ster [facility] Work Phone: Sodium [Moles/Vol] 139 mmol/L 136-145 [facility] Work Phone: WBC (Bld) [#/Vol] 5.1 10*3/uL 4.4-11.0 [facility] Work Phone: Blood blasts/100 leukocyteso n 05-03-2022 Blasts/100 WBC (Bld) [employer] [address] [facility] Work Phone: Comment on above: Previous reported re sult: 5.1 %Edited by: ALBINO on 05/04/22:1217 AMENDED REPORT 05/04/22 1217 BLAST previously reported as: 5.1 *H % [facility] Blood erythrocytes count (nu mber/volume)on 05-03-2022 RBC (Bld) [#/Vol] 4.86 10*6/uL 4.2-5.4 [facility] Work Phone: Blood hemoglobin measurement (mass/volume)on 05-03-2022 Hemoglobin (Bld) [Mass/Vol] 15.1 g/dL 12.0-15.0 [facility] Work Phone: Blood lymphocytes/100 leukoc yteson 05-03-2022 Lymphocytes/100 WBC (Bld) 37.9 % 19-41 [facility] Work Phone: Blood monocytes/100 leukocyt eson 05-03-2022 Monocytes/100 WBC (Bld) 8.4 % 0-10 [facility] Work Phone: Blood platelet mean volumeon 05-03-2022 Platelet mean volume (Bld) [Entitic vol] 9.8 fL 6.2-12.0 [facility] Work Phone: Determination of erythrocyte mean corpuscular volume (MCV)on 05-03-2022 MCV (RBC) [Entitic vol] 89.3 fL 81-99 [facility] Work Phone: Erythrocyte sedimentation ra kajal 05-03-2022 ESR (Bld) [Velocity] 10 mm/h 0-30 [facility] Work Phone: Hematocrit Auto (Bld) [Volum e fraction]on 05-03-2022 Hematocrit (Bld) [Volume fraction] 43.4 % 37-47 [facility] Work Phone: Laboratory - Chemistry and C hemistry - challengeon 05-03-2022 CO2 [Moles/Vol] 27.0 mmol/L 21.0-32.0 [facility] [facility] Work Phone: Cobalamin (Vitamin B12) [Mass/Vol] 925 pg/mL 211-911 [facility] Work Phone: Urea nitrogen/Creatinine [Mass ratio] 12.6 mg/mg 10-20 [facility] Work Phone: Laboratory - Hematology and Cell countson 05-03-2022 Erythrocyte distribution width (RBC) [Entitic vol] 39.5 fL 35.1-43.9 [facility] Work Phone: Erythrocyte distribution width (RBC) [Ratio] 12.0 % 11.6-14.6 [facility] Work Phone: Immature granulocytes/100 WBC (Bld) 0.400 % 0.0-0.9 [facility] Work Phone: Comment on above: IG% - Immature Granu locytes (promyelocytes, myelocytes and metamyelocytes) > 1% indicates that a LEFT SHIFT is Present. MCH (RBC) [Entitic mass] 31.1 pg 27.0-32.0 [facility] Work Phone: Nucleated RBC/100 WBC (Bld) [Ratio] 0 % 0-5 [facility] Work Phone: MCHC Auto (RBC) [Mass/Vol]on 05-03-2022 MCHC (RBC) [Mass/Vol] 34.8 g/dL 32-[facility] Work Phone: No Panel Informationon 05-03 Estimated GFR (MDRD) Amer 103 mL/min >60 [facility] Work Phone: Comment on above: GFR Calc Estimated GFR (MDRD) Non-Af Amer 85 mL/min >60 [facility] Work Phone: Comment on above: Non- GFR Calc Thyroid Stimulating Hormone (TSH) 0.85 uIU/mL 0.358-3.74 [facility] Work Phone: Vitamin D 25-Hydroxy 63.5 ng/mL [facility] Work Phone: Comment on above: Vitamin D 25(OH) Sta tus Range Deficiency <20 ng/mL (50nmol/L) Insufficiency 20 - 30 ng/mL (50 - 75 nmol/L) Sufficiency 30 - 100 ng/mL (75 - 250 nmol/L) Toxicity >100 ng/mL (>250 nmol/L) Platelets bldon 05-03-2022 Platelets (Bld) [#/Vol] 235 10*3/uL 150-450 [facility] Work Phone: Serum or plasma calcium florentino urement (mass/volume)on 05-03-2022 Calcium [Mass/Vol] 9.5 mg/dL 8.5-10.1 [facility] Work Phone: Serum or plasma creatinine m easurement (mass/volume)on 05-03-2022 Creatinine [Mass/Vol] 0.72 mg/dL 0.55-1.02 [place] Work Phone: Comment on above: The validity of the calculated GFR & GFRAA in patients over 70 years has not been determined. Clinical correlation is essential. Serum or plasma urea nitroge n measurement (mass/volume)on 05-03-2022 Urea nitrogen [Mass/Vol] 9 mg/dL 7-18 [facility] Work Phone: Thin prep Papanicolaou smear with manual screeningon 05-03-2022 Thin prep Papanicolaou smear with manual screening 7 5-15 [facility] Work Phone: Vital Signs Date Time Vital Sign Value Performing Clinician Ro stewart 04-25-2025 14:31-0400 Body mass index (BMI) [Ratio] 31.15 kg/m2 Brittani Thierry MOLDED FR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.[employer]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 Work Phone: [facility] 04-25-2025 14:31-0400 Body weight 76.02 kg Brittani Thierry MOLDED FR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.CL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 Work Phone: [facility] 04-25-2025 14:31-0400 Diastolic blood pressure 88 mm[Hg] Brittani Thierry MOLDED FR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.CL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 Work Phone: [facility] 04-25-2025 14:31-0400 Heart rate 78 /min Brittani Thierry MOLDED FR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.CL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 Work Phone: [facility] 04-25-2025 14:31-0400 Respiratory rate 16 /min Brittani Thierry MOLDED FR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.CL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 Work Phone: [facility] 04-25-2025 14:31-0400 SaO2% (BldA) [Mass fraction] 97 % Brittani Thierry MOLDED FR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.CL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 Work Phone: [facility] 04-25-2025 14:31-0400 Systolic blood pressure 137 mm[Hg] Brittani Thierry MOLDED FR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.CL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 Work Phone: [facility] 02-15-2025 14:37-0400 Diastolic blood pressure 78 mm[Hg] Heide Dahlhausen MOLDED FR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.CL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 Work Phone: [facility] 02-15-2025 14:37-0400 Heart rate 63 /min Heide Dahlhausen MOLDED FR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.CL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 Work Phone: [facility] 02-15-2025 14:37-0400 Systolic blood pressure 132 mm[Hg] Heide Dahlhausen MOLDED FR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.CL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 Work Phone: [facility] 01-03-2025 13:12-0400 Body height 157.[address] Thi Tang MD Work Phone: [facility] 01-03-2025 13:12-0400 Body mass index (BMI) [Ratio] 31.1 kg/m2 Dr. Thi Tang MD Work Phone: [facility] 01-03-2025 13:12-0400 Body weight 77.[address] Thi Tang MD Work Phone: [facility] 11-19-2024 09:19-0500 Body mass index (BMI) [Ratio] 30.89 kg/m2 Olman Sullivan Jr., MD Work Phone: [facility] 11-19-2024 09:19-0500 Body weight 75.39 kg Olman Sullivan Jr., MD Work Phone: [facility] 11-19-2024 09:19-0500 Diastolic blood pressure 83 mm[Hg] Olman Sullivan Jr., MD Work Phone: [facility] 11-19-2024 09:19-0500 Heart rate 65 /min Olman Sullivan Jr., MD Work Phone: [facility] 11-19-2024 09:19-0500 SaO2% (BldA) [Mass fraction] 97 % Olman Sullivan Jr., MD Work Phone: [facility] 11-19-2024 09:19-0500 Systolic blood pressure 139 mm[Hg] Olman Sullivan Jr., MD Work Phone: [facility] 10-19-2022 15:15-0500 Body temperature 87 [degF] Dr. Ashu Tang Work Phone: [facility] 10-19-2022 15:15-0500 Diastolic blood pressure 70 mm[Hg] Dr. Ashu Tang Work Phone: [facility] 10-19-2022 15:15-0500 Heart rate 57 /min Dr. Ashu Tang Work Phone: [facility] 10-19-2022 15:15-0500 Respiratory rate 14 /min Dr. Ashu Tang Work Phone: [facility] 10-19-2022 15:15-0500 SaO2% (BldA) [Mass fraction] 98 % Dr. Ashu Tang Work Phone: [facility] 10-19-2022 15:15-0500 Systolic blood pressure 130 mm[Hg] Dr. Ashu Tang Work Phone: [facility] 10-19-2022 13:51-0500 Body height 154.[address] Ashu Tang Work Phone: [facility] 10-19-2022 13:51-0500 Body mass index (BMI) [Ratio] 30.8 kg/m2 Dr. Ashu Tang Work Phone: [facility] 10-19-2022 13:51-0500 Body weight [address] Ashu Tang Work Phone: [facility] 08-23-2022 15:20-0500 Body mass index (BMI) [Ratio] 30.2 kg/m2 Dr. Ashu Tang Work Phone: [facility] 08-23-2022 15:20-0500 Body weight 74.[address] Ashu Tang Work Phone: [facility] 08-23-2022 15:20-0500 Diastolic blood pressure 95 mm[Hg] Dr. Ashu Tang Work Phone: [facility] 08-23-2022 15:20-0500 Heart rate 79 /min Dr. Ashu Tang Work Phone: [facility] 08-23-2022 15:20-0500 SaO2% (BldA) [Mass fraction] 97 % Dr. Ashu Tang Work Phone: [facility] 08-23-2022 15:20-0500 Systolic blood pressure 175 mm[Hg] Dr. Ashu Tang Work Phone: [facility] Encounters Encounter Date Encounter Type Care Provider Facility Start: 06-28-2025 End: 06-28-2025 ambulatory OLMAN SULLIVAN JR Facility:[facility] Start: 04-25-2025 End: 04-25-2025 Patient encounter procedure Brittani Thierry MOLDED FR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.CL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 Work Phone: Neurology Comment on above: Chronic insomnia (Pr imary Dx) Start: 04-25-2025 End: 04-25-2025 ambulatory BRITTANI THIERRY Facility:[facility] Start: 03-12-2025 End: 03-12-[address] Thi Tang MD Work Phone: [facility] Work Phone: Start: 03-12-2025 End: 03-12-[address] 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 Work Phone: Neurology Start: 02-18-2025 End: 02-18-2025 ambulatory BRITTANI THIERRY Facility:[facility] Start: 02-15-2025 End: 02-15-2025 ambulatory HEIDE DAHLHAUSEN Facility:[facility] Start: 02-15-2025 End: 02-15-2025 Patient encounter procedure Heide Dahlhausen M[employer]ED [employer]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.[employer]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 Work Phone: Neurology Comment on above: MCI (mild cognitive impairment) (Primary Dx); Insomnia, unspecified type Start: 01-31-2025 End: 01-31-2025 Telephone encounter Olman Sullivan MD Work Phone: Neurology Comment on above: Results Start: 01-03-2025 End: 01-03-2025 Patient encounter procedure Shayla SUN -[facility] Work Phone: Start: 01-03-2025 End: 01-03-2025 ambulatory Shayla Vera Facility:[facility] Start: 12-04-2024 End: 12-04-2024 ambulatory OLMAN SULLIVAN JR Facility:[facility] Start: 12-04-2024 End: 12-04-2024 Subsequent hospital visit by physician Erin Huynh (I-Stat/1.5t) Radiology Comment on above: Cognitive impairment , mild, so stated [G31.84] Start: 11-19-2024 End: 11-19-2024 ambulatory OLMAN SULLIVAN JR Facility:[facility] Start: 11-19-2024 End: 11-19-2024 ambulatory OLMAN SULLIVAN JR Facility:[facility] Start: 11-19-2024 End: 11-19-2024 Patient encounter procedure Olman Sullivan MD Work Phone: Neurology Comment on above: Cognitive impairment , mild, so stated (Primary Dx); Insomnia, unspecified type Start: 10-09-2024 End: 10-09-2024 ambulatory [facility] Facility:[facility] Start: 09-19-2024 End: 09-19-2024 ambulatory [facility] Facility:[facility] Start: 08-23-2024 Encounter for genera l adult medical examination without abnormal findings [facility] Start: 08-03-2024 End: 08-03-2024 ambulatory [facility] Facility:[facility] Start: 08-02-2024 End: 08-02-2024 ambulatory [facility] Facility:[facility] Start: 07-17-2024 End: 07-18-2024 ambulatory [facility] Start: 03-01-2024 Telephone encounter Neurology Provid er Neurology Start: 09-15-2023 End: 09-15-2023 ambulatory [facility] Work Phone: Start: 09-15-2023 End: 09-15-2023 Discharged Recurring [facility]-Physical Therapy Work Phone: Start: 09-01-2023 End: 09-01-2023 [facility] Start: 12-24-2022 End: 12-24-[address] Ashu Tang Work Phone: [facility] Work Phone: Start: 12-24-2022 End: 12-24-[address] Ashu Tang [facility] Phone[facility] Start: 11-12-2022 End: 11-12-[address] Ashu Tang Work Phone: [facility] Start: 10-19-2022 Non-patient / Non-visit Dr. Ashu Tang Work Phone: [facility] Start: 10-19-2022 End: 10-19-2022 Admission to same day surgery center Dr. Ashu Tang Work Phone: [facility]-Endoscopy Start: 10-19-2022 End: 10-19-[address] Ashu Tang Work Phone: [facility] Work Phone: Start: 08-23-2022 End: 08-23-[address] Ashu Tang Work Phone: [facility] Start: 08-12-2022 End: 08-12-[address] Ashu Tang Work Phone: [facility]-Laboratory, Specimen Start: 05-03-2022 End: 05-03-2022 [facility] Procedures Date Procedure Procedure Detail Performing Clinician Start: 03-12-2025 Vitamin D, 25-hydrox y measurement Dr. Thi Tang MD Work Phone: Comment on above: Vitamin D StatusDefi ciency: <20 ng/mL (50nmol/L)Insufficiency: 20-30 ng/mL (50-75 nmol/L)Sufficiency: 30-100 ng/mL (75-250 nmol/L)Toxicity: >100 ng/mL (>250 nmol/L) Start: 12-04-2024 MRI 3D BRAIN QUANT Will briana Sullivan MD Work Phone: Start: 12-04-2024 Mri brain brain stem w/o contrast material Olman Sullivan MD Work Phone: Start: 09-01-2023 Plain x-ray of pelvi s and lower extremity Start: 10-19-[address] Vazquez Tang Work Phone: Start: 12-07-2002 Lipid 1996 panel - S melvin or Plasma Neurology Provider Ova OR parasites identification Dr. Ashu Tang Work Phone: Plan of Treatment Date Care Activity Detail Author Start: 02-18-2026 Urine microalbumin profile DTaP,Tdap,Td Vaccine (2 - Td or Tdap) [facility] Start: 06-28-2025 End: 06-28-2025 Patient encounter procedure 06/28/2025 2:20 PM EDT Office Visit Neurology [address] [place] [address] Olman Sullivan Jr., MD [address] [place] [address] Return for follow up with Dr. Sullivan in 4-6 months. 60 min time slot to address both sleep and memory concerns in single appointment Neurology Comment on above: Return for follow up with Dr. Sullivan in 4-6 months. 60 min time slot to address both sleep and memory concerns in single appointment Start: 06-03-2025 Influenza vaccination C [facility] Start: 04-25-2025 End: 04-25-2025 Patient encounter procedure 04/25/2025 2:30 PM EDT Office Visit Neurology [address] [place] [address] Brittani Guadarrama, MOLDED FR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.CL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 [address] [place] [address] 2 month follow up Neurology Comment on above: 2 month follow up Start: 02-18-2025 End: 02-18-2025 Patient encounter procedure Neurology Comment on above: 3 month follow up Start: 02-15-2025 End: 02-15-2025 Patient encounter procedure 02/15/2025 1:30 PM EDT Office Visit Neurology [address] [address] Heide Felix APRN.CL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 [address] [address] New Pt.- Neuro cognative Neurology Comment on above: New Pt.- Neuro cogna tive Start: 02-13-2025 End: 02-13-2025 Patient encounter procedure 02/13/2025 2:30 PM EDT Office Visit Neurology [address] [place], [place] [id number] Stefanie Isaacs PA-C [address] [place], [place] [id number] cognitive impairment Neurology Comment on above: cognitive impairment Start: 12-04-2024 End: 12-04-2024 Patient encounter procedure 12/04/2024 1:00 PM EST Appointment Radiology [address] [place], [place] [id number] Cognitive impairment, mild, so stated [G31.84] Radiology Comment on above: Cognitive impairment , mild, so stated [G31.84] Start: 11-19-2024 End: 02-18-2025 Cobalamin (Vitamin B12) [Mass/volume] in Serum or Plasma [facility] Work Phone: Comment on above: Expected: 11/19/2024 , Expires: 02/18/2025 Start: 11-19-2024 End: 02-18-2025 Thyrotropin [Units/volume] in Serum or Plasma [facility] Comment on above: Expected: 11/19/2024 , Expires: 02/18/2025 Start: 11-19-2024 End: 02-18-2025 Thyroxine (T4) free [Mass/volume] in Serum or Plasma [facility] Comment on above: Expected: 11/19/2024 , Expires: 02/18/2025 Start: 10-03-2024 Advance Directive Discussion Advance Directive Discussion [facility] Start: 10-03-2024 Medicare Advantage Annual Wellness Visit Medicare Advantage Annual Wellness Visit [facility] Start: 07-03-2024 End: 07-03-2024 Patient encounter procedure 07/03/2024 9:20 AM EDT Office Visit Neurology [address] [place] [address] Luisana Martinez MD [address] [place] [address] insomnia Neurology Comment on above: insomnia Start: 06-03-2024 Covid-19 Vaccine ( season) Covid-19 Vaccine ( season) [facility] Start: 06-03-2024 Influenza vaccination [facility] Start: 12-16-2023 RSV Vaccine (1 - 1-d ose 75+ series) RSV Vaccine (1 - 1-dose 75+ series) [facility] Start: 10-03-2023 Advance Directive Discussion Advance Directive Discussion [facility] Start: 10-03-2023 Behavioral Health Screening Behavioral Health Screening [facility] Start: 06-03-2023 Covid-19 Vaccine ( season) Covid-19 Vaccine ( season) [facility] Start: 10-19-2022 Colsc flx w/rmvl of tumor polyp lesion snare tq COLONOSCOPY W/LESION REMOVAL [facility] Start: 10-19-2022 Patient discharge [facility] Start: 2013 Pneumococcal Vaccine : 65+ (1 of 1 - PCV) Pneumococcal Vaccine: 65+ (1 of 1 - PCV) [facility] Start: 2013 Screening for osteoporosis Bone Density Screening [facility] Start: 10-21-2011 Diabetes Screening Diabetes Screenin g [facility] Start: 2008 RSV Vaccine (1 - 1-d ose 60+ series) RSV Vaccine (1 - 1-dose 60+ series) [facility] Start: 12-08-2007 Lipid panel Lipid Screening [facility] Start: 1998 Pneumococcal Vaccine : 50+ (1 of 1 - PCV) Pneumococcal Vaccine: 50+ (1 of 1 - PCV) [facility] Start: 1998 Shingrix Vaccine (1 of 2) Shingrix Vaccine (1 of 2) [facility] Start: 1993 Screening for malign ant neoplasm of colon [facility] Start: 1966 Anxiety Screening Anxiety Screening [facility] Start: 1966 Depression Screening Depression Scre ening [facility] End: 12-19-2025 MR Brain WO contrast MRI BRAIN W QUANT WO IVCON Radiology Routine Cognitive impairment, mild, so stated 1 Occurrences starting 11/19/2024 until 12/19/2025 [facility] Comment on above: 1 Occurrences starti ng 11/19/2024 until 12/19/2025 End: 12-19-2025 MR Unspecified body region 3D post processing MRI 3D BRAIN QUANT Radiology Routine Cognitive impairment, mild, so stated 1 Occurrences starting 11/19/2024 until 12/19/2025 [facility] Comment on above: 1 Occurrences starti ng 11/19/2024 until 12/19/2025 Patient referral [facility] Work Phone: XR Spine Lumbar and Sacrum GE 4 Views [facility] Payers Date Payer Category Payer Self-pay [id number] 2023 Medicare (Managed Care) MMO [employer] HMO [id number] 2017 Unknown MMO MMO [employer] PPO [id number] 2017-Present [phone] [address] [place] [address] PPO [id number] 2016 Unknown [id number] 1948 Unknown [id number] Medicare [id number] Unknown [id number] Unknown [id number] Unknown [id number] Unknown [id number] Unknown [id number] Unknown [id number] Unknown [id number] Social History Date Type Detail Facility Start: 04-02-2016 End: 11-12-2022 Tobacco smoking status SCIS Unknown if ever smoked [facility] Start: 04-02-2016 None [facility] Start: 02-26-2021 Homeless [facility] Start: 02-26-2021 Non-smoker [facility] Start: 1950 Sex Assigned At Female [facility] Start: 11-30-2018 End: 02-18-2025 Tobacco smoking status NHIS Never smoked tobacco [facility] Start: 11-30-2018 End: 02-18-2025 Tobacco use and exposure Smokeless tobacco non-user [facility] Start: 05-19-2022 End: 02-18-2025 Alcohol intake Current non-drinker of alcohol (finding) [facility] Start: 11-30-2018 End: 02-18-2025 History of Social function [facility] Start: 11-30-2018 End: 02-18-2025 Tobacco use panel [facility] National Score (1-100), lower number is lower risk Not on file [facility] Start: 1950 Sex Assigned At Not on file [facility] NEGATED: Highlighted row [facility] Goals Date Patient Goal Desired Activity /State Mental Status Date Assessment Result Facility 10-19-2022 Cognitive function Touch/Shaking [facility] Work Phone: 10-19-2022 Cognitive function Patient Orien tation Person;Place;Time [facility] Work Phone: Clinical Notes 10-19-2022 to 06-28-2025 Brittani Guadarrama APRN.CL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 - 04/25/2025 2:30 PM EDTTelephone Encounter - Brittani Guadarrama APRN.CL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 - 03/06/2025 12:46 PM EDTTelephone Encounter - Brittani Guadarrama APRN.CL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 - 03/06/2025 12:46 PM EDT Note Date & Type Note Facility 06-28-2025 Note HNO ID: [id number] Author: PRO FOX LPN Service: ? Author Type: Licensed Nurse Type: Progress Notes Filed: 06/28/2025 15:21 Note Text: [facility] 06-28-2025 Note HNO ID: [id number] Author: OLMAN SULLIVAN JR, MD Service: ? Author Type: Physician Type: Progress Notes Filed: 06/28/2025 15:21 Note Text: ESTABLISHED PATIENT VISIT CHIEF COMPLAINT: Follow Up HISTORY OF PRESENT ILLNESS: Lisa Alas is a 74 year old female, BMI 30.04 kg/m2 with a PMH significant for and per recent notes of Heidi Quijano and Alissa Guadarrama CNPs: G31.84 MCI (mild cognitive impairment) (primary encounter diagnosis) Comment: Patient previously seen for cognitive concerns with uncertain etiology. Additional testing ordered at time of previous appointment included MRI brain with quantitative analysis as well as lab work. TSH noted to be mildly elevated and patient reports she has since had follow-up with her PCP. MRI brain demonstrating hippocampal volumes and 3rd percentile. Minimal white matter disease noted and overall brain volume in 83rd percentile. Discussed that low hippocampal volume would support a diagnosis of Alzheimer's disease, however, would not be a definitive means of diagnosis. MoCA updated in office today with score of 29/30. Improvement since time of previous visit. She does report decreasing use of OTC medications for insomnia, however, no other changes since time of previous appointment. She denies hallucinations or dangerous behaviors. Discussed options at this time including initiation of medication for prevention of decline of memory (given MRI findings) versus ongoing monitoring (as MoCA is intact). She reports that she has reviewed medication such as Aricept and does not wish to start medication due to concern for SE. Did review that we could consider alternative medication such as Namenda, however, she defers at this time. Given stability of MoCA, we will continue to monitor symptoms at this time and will have her follow-up with Dr. Sullivan in roughly 4-6 months at which time we will go can be repeated and medication can be revisited. Of note, we did review Namenda and SE and if she wishes to start medication in the interim she will reach out to the office. Chronic insomnia (primary encounter diagnosis) Lisa Alas is a 74 year old female with chronic insomnia. She has pared down the number of OTC supplements she is using for insomnia. She is satisfied with the current regimen, it is preferable to what she was taking before, now taking less diphenhydramine (now 76 mg/night) and melatonin (now 6-11 mg/night). Next step might be to try to have her take ibuprofen alone rather than Advil PM to avoid or decrease the diphenhydramine. Still sometimes feels more forgetful, especially if gets upset about something. Has walked out of kitchen with refrigerator door open. However, for most part if forgets, can stop, close eyes, and it comes to her in her words. feels these episodes are occurring daily. feels cognition declining over the past year, and he feels he is frequently filling in the blanks. Pt states she was Rx'd Aricept but does not take it because when she researched it she states it was terrible and would end her life early. Regarding insomnia, she is still taking 2 Advil PM (50 mg of benadryl total), melatonin 20mg. States no issues falling asleep but staying asleep is the problem. No matter what time goes to bed, wakes about 330AM. Bedtime between 10-11PM. Once wakes at 330AM is up and down the rest of the night. Not tired during the day at all. feels no PLMs at night. MOCA: Immediate recall: 02/04 Number repeat: 11/04 Sentence repeat: 11/04 Serial 7s: 12/03 Abstract: 11/04 Namin/3 Orientation: 03/08 Delayed recall: 12/05 (02/04 with simple cue) Cube copy: 10/03 Words being with min 10/03 Clock drawin/3 No prior depression or anxiety. REVIEW OF SYSTEMS GENERAL:No weight loss, malaise or fevers. HEENT:Negative for frequent or significant headaches, No changes in hearing or vision, no nose bleeds or other nasal problems NECK:Negative for lumps, goiter, pain and significant neck swelling RESPIRATORY: Negative for cough, wheezing or shortness of breath. CARDIOVASCULAR: Negative for chest pain, leg swelling or palpitations. GASTROINTESTINAL: Negative for abdominal discomfort, blood in stools or black stools or change in bowel habits GENITOURINARY: No history of dysuria, frequency or incontinence MUSCULOSKELETAL: Negative for joint pain or swelling, back pain or muscle pain. NEUROLOGIC:Negative for focal numbness or weakness, headaches and dizziness or syncope, vision changes, speech/languag changes - EXCEPT that as per HPI above. LAB/IMAGING: Those performed since patient's last visit have been reviewed. WBC (k/uL) Date Value 01/15/2009 10.31 RBC (m/uL) Date Value 01/15/2009 4.04 Hemoglobin (g/dL) Date Value 01/15/2009 13.3 Hematocrit (%) Date Value 01/15/2009 39.4 MCV (fL) Date Value 01/15/2009 97.5 MCH (pG) Date Value 01/15/2009 32.9 MCHC (g/dL) Date Value (more content not included)... [facility] 04-25-2025 History of Presen t illness Narrative Images from the original note were not included. [facility] Follow up/ Established patient visit Recording using Pocits software for draft documentation of the visit was discussed with the patient/authorized installation service representative; all questions welcomed and answered. Patient/authorized installation service representative agreed to proceed Assessment/Plan from last visit: Date of last visit : 02/18/25 IMPRESSION: Chronic insomnia (primary encounter diagnosis) Cognitive impairment, mild, so stated Lisa Alas is a 74 year old female with: 1. Chronic insomnia (F51.04) Chronic insomnia with difficulty falling and staying asleep for several years. Recent sleep study on 07/17/2024 showed no sleep apnea, normal AHI, and good oxygen levels, no PLMs. Patient has tried multiple medications including trazodone, Belsomra, and Ambien with limited success. Currently using a combination of Advil PM, melatonin, and herbal supplements. i have concerns about long-term use of diphenhydramine affecting memory. - Prescribed Quviviq 25 mg; sent to [facility]. Discussed that it will need PA and probably an appeal; that even if approved it might be cost-prohibitive. If so we can consider Belsomra--looks like it was prescribed by primary care in 2022.I think a STEFANY would be safer for her than continuing to take approx 100 mg of diphenhydramine nightly, in addition to melatonin 8-14 mg nightly and herbal supplements. - ?consider ramelteon but I am concerned she would continue OTC melatonin too - recommend she not use liquid Children's benedryl to wash down her pills (she feels it helps with stuck pills, recommend she discuss with PCP Dr Tang) - Referred to behavioral sleep medicine for cognitive behavioral therapy for insomnia (CBT-I). Explained the BSM process to her. - Scheduled follow-up in 2 months to assess progress. - she is already scheduled for f/u with Dr Sullivan in 4 mos for insomnia and MCI 2. Cognitive impairment, mild, so stated (G31.84) Potential cognitive impairment possibly exacerbated by chronic use of diphenhydramine as well as insomnia/insufficient sleep. - Discussed risks of long-term diphenhydramine use on memory. Brittani Guadarrama APRN.CL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 CURRENT VISIT: 04/25/2025 Lisa Alas is a 74 year old female here for follow up for chronic insomnia She initially saw Dr Sullivan for chronic insomnia, and she has mild cognitive impairment She doesn't have ARIK At her last appointment we reviewed her OTC insomnia meds in detail, recommended decreasing diphenhydramine and melatonin intake. She did make changes, details below. Quviviq was denied by insurance. She stopped Belsomra after a week -- it didn't work and I felt out of it the next day. We tried 20 mg of Belsomra since she had been on 10 mg in the past. Today she says she is sleeping with her current OTC treatment regimen. She had been taking at least 100 mg of diphenhydramine nightly, now taking 76 mg; she had been taking at least 15 mg of melatonin nightly, now taking 6-11 mg. She did understand that we were concerned about the high doses and many different OTC products that she was taking. Her bedtime med regimen for insomnia now: --Advil PM 2 pills which is a total of 400 mg ibuprofen and 76 mg of diphenhydramine --Bobby Sleep 2 gummies (each is melatonin 3 mg, L-theonine, and botanicals) --Mindful Nutrition hot chocolate mix with melatonin 3 mg, L-theonine, DESTINEE --Melatonin 5 mg in the night once if she can't sleep, estimates she takes it 50% of the time Bedtime is 1030 PM SL 15 min WASO once every other night Wakes up 715 AM Naps: avoids Saw [facility] in 2002, had a dx of narcolepsy, was on Xyrem at one point, that dx was discarded Sleep study: - Type: Polysomnography - Center: [facility] - Date: 07/17/2024 - Apnea-hypopnea index (AHI): 0.0 - Lowest oxygen saturation: 90% - Other findings: Sleep efficiency was 85%, mean oxygen saturation was 94% during sleep, no significant periodic limb movements. PATIENT-ENTERED QUESTIONNAIRE SLEEP SCORES: ALLERGIES Allergen Reactions Domperidone sob, muscle tightness Metoclopramide unable to breathe Trazodone extreme sleepiness CURRENT MEDICATIONS: multivit-min/iron/FA/vit K/lut (CENTRUM MINIS WOMEN 50 PLUS ORAL) Take by mouth once daily. COLLAGEN MISC B-complex with vitamin C (HIGH POTENCY B COMPLEX WITH C ORAL) Take by mouth. cranberry fruit extract (CRANBERRY CONCENTRATE ORAL) Take by mouth. Ascorbic Acid (VITAMIN C) 1,000 mg tablet Take 1,000 mg by mouth once daily. calcium-cholecalciferol, D3, (OSCAL+D 250) 250 mg-3.125 mcg (125 unit) per tablet Take 1 tablet by mouth once daily. FIBER CHOICE ORAL Take by mouth. fenofibrate nanocrystallized (TRICOR) 145 mg tablet Take 145 mg by mouth once daily. amLODIPine (NORVASC) 5 mg tablet Take 5 mg by mouth once daily. potassium chloride(KLOR-CON 10 10 MEQ TAB) twp tab. twice daily levothyroxine sodium(SYNTHROID 150 MCG TAB) Take one(1) tablet daily. MAGNESIUM OXIDE 400 MG TAB Take one(1) tablet daily. pt unsure of dosage ATENOLOL 25 MG TAB two daily magnesium aspart,citrate,oxide 400 mg magnesium cap Take by mouth. PHYSICAL EXAMINATION: Vital Signs: BP 137/88 Pulse 78 Resp 16 Wt 76 kg (167 lb 9.6 oz) SpO2 97% BMI 31.15 kg/m PHYSICAL EXAM: General appearance: pleasant, NAD Mental status: alert and oriented, able to provide own history Constitutional: overweight Skin: No visible rashes on exposed skin Neuro: No focal deficits observed, no tremors Assessment /Plan Chronic insomnia (primary encounter diagnosis) Lisa Alas is a 74 year old female with chronic insomnia. She has pared down the number of OTC supplements she is using for insomnia. She is satisfied with the current regimen, it is preferable to what she was taking before, now taking less diphenhydramine (now 76 mg/night) and melatonin (now 6-11 mg/night). Next step might be to try to have her take ibuprofen alone rather than Advil PM to avoid or decrease the diphenhydramine. She is scheduled to see Dr Sullivan on 06/28/25 to address both sleep and memory concerns Brittani Guadarrama APRN.VANDANA documented in this encounter [facility] 04-25-2025 Note HNO ID: [id number] Author: BRITTANI GUADARRAMA APRN.CNP Service: ? Author Type: Nurse Practitioner Type: Progress Notes Filed: 04/25/2025 17:47 Note Text: [facility] Follow up/ Established patient visit Recording using [employer] software for draft documentation of the visit was discussed with the patient/authorized installation service representative; all questions welcomed and answered. Patient/authorized installation service representative agreed to proceed Assessment/Plan from last visit: Date of last visit : 02/18/25 IMPRESSION: Chronic insomnia (primary encounter diagnosis) Cognitive impairment, mild, so stated Lisa Alas is a 74 year old female with: 1. Chronic insomnia (F51.04) Chronic insomnia with difficulty falling and staying asleep for several years. Recent sleep study on 07/17/2024 showed no sleep apnea, normal AHI, and good oxygen levels, no PLMs. Patient has tried multiple medications including trazodone, Belsomra, and Ambien with limited success. Currently using a combination of Advil PM, melatonin, and herbal supplements. i have concerns about long-term use of diphenhydramine affecting memory. - Prescribed Quviviq 25 mg; sent to [facility]. Discussed that it will need PA and probably an appeal; that even if approved it might be cost-prohibitive. If so we can consider Belsomra--looks like it was prescribed by primary care in 2022.I think a STEFANY would be safer for her than continuing to take approx 100 mg of diphenhydramine nightly, in addition to melatonin 8-14 mg nightly and herbal supplements. - ?consider ramelteon but I am concerned she would continue OTC melatonin too - recommend she not use liquid Children's benedryl to wash down her pills (she feels it helps with stuck pills, recommend she discuss with PCP Dr Tang) - Referred to behavioral sleep medicine for cognitive behavioral therapy for insomnia (CBT-I). Explained the BSM process to her. - Scheduled follow-up in 2 months to assess progress. - she is already scheduled for f/u with Dr Sullivan in 4 mos for insomnia and MCI 2. Cognitive impairment, mild, so stated (G31.84) Potential cognitive impairment possibly exacerbated by chronic use of diphenhydramine as well as insomnia/insufficient sleep. - Discussed risks of long-term diphenhydramine use on memory. Brittani Guadarrama APRN.VANDANA CURRENT VISIT: 04/25/2025 Lisa Alas is a 74 year old female here for follow up for chronic insomnia She initially saw Dr Sullivan for chronic insomnia, and she has mild cognitive impairment She doesn't have ARIK At her last appointment we reviewed her OTC insomnia meds in detail, recommended decreasing diphenhydramine and melatonin intake. She did make changes, details below. Quviviq was denied by insurance. She stopped Belsomra after a week -- it didn't work and I felt out of it the next day. We tried 20 mg of Belsomra since she had been on 10 mg in the past. Today she says she is sleeping with her current OTC treatment regimen. She had been taking at least 100 mg of diphenhydramine nightly, now taking 76 mg; she had been taking at least 15 mg of melatonin nightly, now taking 6-11 mg. She did understand that we were concerned about the high doses and many different OTC products that she was taking. Her bedtime med regimen for insomnia now: --Advil PM 2 pills which is a total of 400 mg ibuprofen and 76 mg of diphenhydramine --Bobby Sleep 2 gummies (each is melatonin 3 mg, L-theonine, and botanicals) --Mindful Nutrition hot chocolate mix with melatonin 3 mg, L-theonine, DESTINEE --Melatonin 5 mg in the night once if she can't sleep, estimates she takes it 50% of the time Bedtime is 1030 PM SL 15 min WASO once every other night Wakes up 715 AM Naps: avoids Saw [facility] in 2002, had a dx of narcolepsy, was on Xyrem at one point, that dx was discarded Sleep study: - Type: Polysomnography - Center: [facility] - Date: 07/17/2024 - Apnea-hypopnea index (AHI): 0.0 - Lowest oxygen saturation: 90% - Other findings: Sleep efficiency was 85%, mean oxygen saturation was 94% during sleep, no significant periodic limb movements. PATIENT-ENTERED QUESTIONNAIRE SLEEP SCORES: ALLERGIES Allergen Reactions Domperidone sob, muscle tightness Metoclopramide unable to breathe Trazodone extreme sleepiness CURRENT MEDICATIONS: multivit-min/iron/FA/vit K/lut (CENTRUM MINIS WOMEN 50 PLUS ORAL) Take by mouth once daily. COLLAGEN MISC B-complex with vitamin C (HIGH POTENCY B COMPLEX WITH C ORAL) Take by mouth. cranberry fruit extract (CRANBERRY CONCENTRATE ORAL) Take by mouth. Ascorbic Acid (VITAMIN C) 1,000 mg tablet Take 1,000 mg by mouth once daily. calcium-cholecalciferol, D3, (OSCAL+D 250) 250 mg-3.125 mcg (125 unit) per tablet Take 1 tablet by mouth once daily. FIBER CHOICE ORAL Take by mouth. fenofibrate nanocrystallized (TRICOR) 145 mg tablet Take 145 mg by mouth once daily. amLO (more content not included)... [facility] 03-06-2025 Telephone encounter Note Rx sent to the correct pharmacy Brittani Guadarrama APRN.VANDANA [facility] 03-06-2025 Miscellaneous Notes Rx sent to the correct pharmacy Brittani Guadarrama APRN.VANDANA Patient calls and states that medication was sent to [facility]. Patient needs this sent to [facility]. The patient has been identified by name and date of : Yes Caregiver verified no other encounters exist for this prescription request: Yes Caregiver confirmed with patient/requestor that no other refills are due, in the near future, with this provider at this time: Yes The last office visit in the department: 02/18/2025 Does the patient have a future office visit with this provider/department: Yes 04/25/2025 Requested Prescriptions Pending Prescriptions Disp Refills suvorexant (BELSOMRA) 20 mg tab 30 tablet 2 Sig: Take 1 tablet by mouth daily at bedtime for 90 days. Eileen Clifton RN March 06, 2025 10:10 AM documented in this encounter [facility] 03-06-2025 Telephone encounter Note Patient calls and states that medication was sent to [facility]. [facility] The patient has been identified by name and date of : Yes Caregiver verified no other encounters exist for this prescription request: Yes Caregiver confirmed with patient/requestor that no other refills are due, in the near future, with this provider at this time: Yes The last office visit in the department: 02/18/2025 Does the patient have a future office visit with this provider/department: Yes 04/25/2025 Requested Prescriptions Pending Prescriptions Disp Refills suvorexant (BELSOMRA) 20 mg tab 30 tablet 2 Sig: Take 1 tablet by mouth daily at bedtime for 90 days. Eileen Clifton RN March 06, 2025 10:10 AM [facility] 02-28-2025 Telephone encounter Note PA approved from 01/29/2025-02/28/2026. TC to patient who is informed of such. SAQIB Crain [facility] 02-28-2025 Miscellaneous Notes PA approved from 01/29/2025-02/28/2026. TC to patient who is informed of such. SAQIB Crain PA initiated through [employer] and questions answered/OV note from 02/18 attached. Please watch for insurance determination. SAQIB Crain Belsomra rx sent Brittani Guadarrama APRN.CNP Patient calls to let provider know that the daridorexant 25 mg is not covered by her insurance and out of pocket is greater than $2000. She is not able to afford that. Patient contacted her insurance company and they said Belsomra would be covered with PA submission. Patient asking if prescription for Belsomra could be sent to [facility]. Faxed progress note below to Dr. Tang as well. Lotus Hernandez RN Please fax my progress note to her PCP Thanks Brittani Guadarrama APRN.VANDANA documented in this encounter [facility] 02-28-2025 Telephone encounter Note PA initiated through [employer] and questions answered/OV note from 02/18 attached. Please watch for insurance determination. SAQIB Crain [facility] 02-28-2025 Telephone encounter Note Belsomra rx sent Brittani Guadarrama APRN.VANDANA [facility] 02-20-2025 Telephone encounter Note Patient calls to let provider know that the daridorexant 25 mg is not covered by her insurance and out of pocket is greater than $2000. She is not able to afford that. Patient contacted her insurance company and they said Belsomra would be covered with PA submission. Patient asking if prescription for Belsomra could be sent to [facility]. Faxed progress note below to Dr. Tang as well. Lotus Hernandez RN [facility] 02-19-2025 Telephone encounter Note Please fax my progress note to her PCP Thanks Brittani Guadarrama APRN.VANDANA [facility] 02-18-2025 Note HNO ID: [id number] Author: BRITTANI GUADARRAMA APRN.CNP Service: ? Author Type: Nurse Practitioner Type: Progress Notes Filed: 02/19/2025 10:12 Note Text: [facility] Follow up/ Established patient visit Date of last visit : 11/19/2024 The following Impression/Plan was copied and pasted from the patient's last [facility] Disorders Center visit on 11/19/24: ASSESSMENT/PLAN: 1. Cognitive impairment, mild, so stated - ICD9: 331.83, ICD10: G31.84 (primary diagnosis) Patient with cognitive complaints as above, of which etiology is uncertain at this time. Subjective history inconsistent, but would suggest that cognitive complaints are worse than what MOCA testing indicates (borderline abnormal). Etiology of cognitive complaints uncertain. Denies anxiety and depression, but has been on meds for both per PCP notes (last from 02/2024) and thus need to consider pseudodementia. Also in ddx would be vitamin deficiency, thyroid disease (metabolic cause). No PCP labs to confirm any prior testing and thus will at least send of B12 and thyroid labs today. Pt states had neurocognitive testing, but I have no results. Possible that symptoms are secondary to excessive amounts of OTC sedating meds patient is taking nightly. Also need to consider early neurodegenerative process or other intracranial cause. In addition to requesting neurocognitive testing results, will also proceed with MRI brain quant to evaluate for intracranial cause of pattern of atrophy that might suggest a neurodegenerative process. Encouraged brain exercises. Follow up 3 months or sooner prn. 2. Insomnia, unspecified type - ICD9: 780.52, ICD10: G47.00 Etiology uncertain, and pt a limited historian. Initially tells me insomnia only present for the past year, but later finding out that this has been an issues for entire life. Pt appears anxious but denies such. Denies worrying or racing thoughts initially but then states cannot turn off mind. Again, as with cognitive impairment, question if underlying depression or anxiety contributing to symptoms. As sedating meds are likely further impairing cognition, would not recommend Rx meds such as Ambien, Lunesta, Benzos... I also feel patient is taking way too many OTC meds with pt indicating she is taking melatonin 40 nightly. Rather than Rx more meds, feel pt might benefit from evaluation with behavioral sleep medicine. Referral will be place for evaluation to determine if they feel treatment through [facility] or other is possible. Pt agrees with plan. Olman Sullivan MD Recording using [employer] software for draft documentation of the visit was discussed with the patient/authorized installation service representative; all questions welcomed and answered. Patient/authorized installation service representative agreed to proceed Here for follow up for chronic insomnia - Chronic Insomnia - Patient is a 74-year-old female presenting with concerns of chronic insomnia. - Reports having trouble sleeping for several years. - Typically goes to bed around 22:30-23:00 and wakes up around 04:30. - Sometimes wakes up at 02:30 and stays awake for 2 hours or more. - Uses the bathroom sometimes when she wakes up, but other times she is just awake. Her bedtime med regimen for insomnia: --She always takes Advil PM 2 pills which is a total of 400 mg ibuprofen and 76 mg of diphenhydramine --Almost always takes Alteril 1 pill which is melatonin 5 mg, valerian, and L-tryptophan --Makes sleepytime tea and adds hot cocoa herb supplement -- contains magnesium 72 mg, zinc, --L-theanine, L-tryptophan, and flower/seed/root extracts --I wash my pills down with a big sip of liquid children's benedryl (12.5 mg/5 ml) -- that helps her get the pills down otherwise they stick --If she hasn't fallen asleep in 30 min then she takes Sleep gummy (usually 1 but sometimes 2) which contains melatonin 3 mg, L-theanine, camomile - Reports that without taking these medications, she could lie awake all night. - On a good night, she might get 8 hours of sleep, but on a bad night, she might get only 4 hours. - Does not take naps during the day as she believes it might affect her nighttime sleep. - Denies restless legs, but reports some possible neuropathy in her feet, which does not bother her when trying to sleep. Meds tried for insomnia: Trazodone -- felt sleepy all day Gabapentin for pain -- helped with pain but not with insomnia Belsomra 10 mg -- thinks it probably didn't help Zolpidem 2002, zolpidem CR 2008 -- thinks it was hard to wake up, doesn't like the idea of taking it Doesn't recall if she ever took doxepin, amitriptyline Saw [facility] in 2002, had a dx of narcolepsy, was on Xyrem at one point, that dx was discarded Sleep study: - Type: Polysomnography - Center: [facility] - Date: 07/17/2024 - Apnea-hypopnea index (AHI): 0.0 - Lowest oxygen saturation: 90% - Other findings: Sleep efficiency was 8 (more content not included)... [facility] 02-15-2025 History of Presen t illness Narrative Images from the original note were not included. [facility] [place] Follow-up Visit Follow-up note February 15, 2025 HPI: Ms. Alas presents today for a follow-up visit. Per her previous visit with Dr. Sullivan on 11/19/24: ASSESSMENT/PLAN: 1. Cognitive impairment, mild, so stated - ICD9: 331.83, ICD10: G31.84 (primary diagnosis) Patient with cognitive complaints as above, of which etiology is uncertain at this time. Subjective history inconsistent, but would suggest that cognitive complaints are worse than what MOCA testing indicates (borderline abnormal). Etiology of cognitive complaints uncertain. Denies anxiety and depression, but has been on meds for both per PCP notes (last from 02/2024) and thus need to consider pseudodementia. Also in ddx would be vitamin deficiency, thyroid disease (metabolic cause). No PCP labs to confirm any prior testing and thus will at least send of B12 and thyroid labs today. Pt states had neurocognitive testing, but I have no results. Possible that symptoms are secondary to excessive amounts of OTC sedating meds patient is taking nightly. Also need to consider early neurodegenerative process or other intracranial cause. In addition to requesting neurocognitive testing results, will also proceed with MRI brain quant to evaluate for intracranial cause of pattern of atrophy that might suggest a neurodegenerative process. Encouraged brain exercises. Follow up 3 months or sooner prn. 2. Insomnia, unspecified type - ICD9: 780.52, ICD10: G47.00 Etiology uncertain, and pt a limited historian. Initially tells me insomnia only present for the past year, but later finding out that this has been an issues for entire life. Pt appears anxious but denies such. Denies worrying or racing thoughts initially but then states cannot turn off mind. Again, as with cognitive impairment, question if underlying depression or anxiety contributing to symptoms. As sedating meds are likely further impairing cognition, would not recommend Rx meds such as Ambien, Lunesta, Benzos... I also feel patient is taking way too many OTC meds with pt indicating she is taking melatonin 40 nightly. Rather than Rx more meds, feel pt might benefit from evaluation with behavioral sleep medicine. Referral will be place for evaluation to determine if they feel treatment through [facility] or other is possible. Pt agrees with plan. Patient arrived 20 min late and time is limited at appointment today. States she has been forgetful; notes this in the kitchen. If she stops things will come to her if she things about them. Takes a minute or two to come up with something. Sometimes when cooking forgets why she went to the fridge. She is driving a little; not getting lost in familiar places. No MVA. No hallucinations. Maybe irritable; increased stress can agitate her. Mostly in the car. No confusion when agitated. No wandering or acting out dreams at night. Does not remember dreams. Has left stove/oven on. Not missing ingredients. long term memory is not as good as it used to be. States she was very sick and almost in her 50's and has some difficulty with usp memory around that time. Can remember childhood. States she is still taking melatonin at bedtime; 10mg. Also taking Advil PM. She does take thyroid medicine daily. States her PCP had the results at her last appointment. States AD runs in her family. States mother passed before she got older. Thinks dad had it. States her grandma had dementia. MOCA 02/15/25 Visuospatial/exec (5-5) (5/5) Naming (0-3) (3/3) Memory Words, up to 2 trials: Face, Velvet, Buddhist, Kt, Red (no points) 4/5 first try, 5/5 second try Attention forwards: 2 1 8 5 4 (0-1) (10/03) Attention backwards: 7 4 2 (0-1) (10/03) Tap for the A: F B A C M N A A J K L B A F A K D E A A A J A M O F A A B (1 point if 0 or 1 error) (10/03) Serial subtraction by 7: [id number] (3 points for correct 4 or 5; 2 points for 2 or 3 correct; 1 point for 1 correct) [id number]--[id number] (12/03) Language: repeat: I only know that Pavan is the one to help today (0-1) (10/03) Language: repeat: The cat always hid under the couch when dogs were in the room (0-1) (10/03) Fluency: max words beginning with the letter F (1 point if 11 or more words) lllll lllll ll (10/03) Abstraction: practice banana-orange=fruit. Then train-bicycle (1) AND watch-ruler (1) total: (2) (/2) Delayed recall: recall words: face, velvet, orthodoxy, kt, red (0-5) got red with cat clue (4/5) Orientation: date(1), month(1), year(1), day(1), place(1), city(1) max 6 points (6/6) Level of education: add 1 if did not receive more than a HS education +1 Total Score max 30 or 31 (29) The average MoCA score for MCI is 22 (range 19-25) and the average MoCA score for Mild AD is 16 (11-21). 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 TONSILLECTOMY PRIMARY/SECONDARY <AGE 10 1955 Tonsillectomy Current Outpatient Medications on File Prior to Visit Medication Sig KRILL OIL ORAL Take by mouth once daily. (Patient not taking: Reported on 11/19/2024) ranitidine (ZANTAC) 150 mg tablet Take 1 tablet by mouth once daily. hydrOXYzine HCl (ATARAX) 10 mg tablet Take one to two tablets at bedtime and every 6 hours as needed for itching, hives (Patient not taking: Reported on 11/19/2024) predniSONE (DELTASONE) 10 mg tablet Take 6 tablets once a day for 5 days, then 4 tabs daily for 2 days, 3 tabs daily for 2 days, 2 tabs daily for 2 days, then 1 tab daily for 2 days (Patient not taking: Reported on 11/19/2024) potassium chloride(KLOR-CON 10 10 MEQ TAB) twp tab. twice daily (Patient taking differently: Take 10 mEq by mouth once daily.) levothyroxine sodium(SYNTHROID 150 MCG TAB) Take one(1) tablet daily. MAGNESIUM OXIDE 400 MG TAB Take one(1) tablet daily. pt unsure of dosage fenofibrate nanocrystallized(TRICOR 145 MG TAB) Take one(1) tablet daily. ATENOLOL 25 MG TAB two daily No current facility-administered medications on file prior to visit. Social History Tobacco Use Smoking status: Never Smokeless tobacco: Never Substance Use Topics Alcohol use: No ALLERGIES Allergen Reactions Domperidone sob, muscle tightness Metoclopramide unable to breathe Trazodone extreme sleepiness Review of Systems: See HPI. Physical Exam: 02/15/25 1437 BP: 132/78 BP Site: Left Arm BP Position: Sitting Pulse: 63 Patient is alert and in no distress. Dress is appropriate. Mood is appropriate Breathing appears regular and unstressed Neurologic examination: See MOCA above. CN: Pupils equal and reactive to light, extraocular movements intact with no nystagmus, face is symmetric with no facial droop, facial sensation intact bilaterally to light touch. V1-3, hearing intact bilaterally, symmetric evaluation of the soft palate, tongue is midline with no deviation, shoulder shrug is symmetric. Motor Examination: Right Upper Extremity: (of 5) Left Upper Extremity: (of 5) Shoulder Abduction: Deltoid (Ax/C5) 5 Shoulder Abduction 5 Elbow Flexion: Biceps (MC/R and C5/6) 5 Elbow Flexion 5 Elbow Extension: Triceps (R/C7) 5 Elbow Extension 5 Wrist Flexion (M/U and C6/7) 5 Wrist Flexion 5 Wrist Extension (R/C6) 5 Wrist Extension 5 Finger Abduction (U/T1) 5 Finger Abduction [address] Reporter 5 Right Lower Extremity: (of 5) Left Lower Extremity: (of 5) Hip Flexion: Iliopsoas (F and L1/2) 5 Hip Flexion 5 Knee Extension: Quadriceps (F and L3/4) 5 Knee Extension 5 Knee Flexion: Hamstrings (S/S1) 5 Knee Flexion 5 Dorsiflexion: Tibialis Anterior (DP and L4/5) 5 Dorsiflexion 5 Plantarflexion: Gastrocnemius/Soleus (T and S1/2) 5 Plantarflexion 5 Reflexes: Right Extremities Left Extremities: Triceps (C7-8R) - Triceps - Biceps (C5-6MC) 2 Biceps 2 Brachioradialis (C5-6R) 2 Brachioradialis 2 Patellar (L3-4F) 2 Patellar 2 Achilles (S1-2S) 2 Achilles 2 Sensory Intact to light touch upper and lower extremities bilaterally Normal toe and finger vibratory sensation Temperature sensation dec in BLE below the knee Coordination: No dysmetria on finger to nose. No tremors noted. No drift seen. Gait normal in stance and pattern. Labs/studies: Latest Ref Rng 11/19/2024 Vitamin B12 232 - 1,245 pg/mL 846 TSH 0.270 - 4.200 mIU/L 5.000 (H) Free T4 0.9 - 1.7 ng/dL 1.4 Legend: (H) High Assessment/Plan: G31.84 MCI (mild cognitive impairment) (primary encounter diagnosis) Comment: Patient previously seen for cognitive concerns with uncertain etiology. Additional testing ordered at time of previous appointment included MRI brain with quantitative analysis as well as lab work. TSH noted to be mildly elevated and patient reports she has since had follow-up with her PCP. MRI brain demonstrating hippocampal volumes and 3rd percentile. Minimal white matter disease noted and overall brain volume in 83rd percentile. Discussed that low hippocampal volume would support a diagnosis of Alzheimer's disease, however, would not be a definitive means of diagnosis. MoCA updated in office today with score of 29/30. Improvement since time of previous visit. She does report decreasing use of OTC medications for insomnia, however, no other changes since time of previous appointment. She denies hallucinations or dangerous behaviors. Discussed options at this time including initiation of medication for prevention of decline of memory (given MRI findings) versus ongoing monitoring (as MoCA is intact). She reports that she has reviewed medication such as Aricept and does not wish to start medication due to concern for SE. Did review that we could consider alternative medication such as Namenda, however, she defers at this time. Given stability of MoCA, we will continue to monitor symptoms at this time and will have her follow-up with Dr. Sullivan in roughly 4-6 months at which time we will go can be repeated and medication can be revisited. Of note, we did review Namenda and SE and if she wishes to start medication in the interim she will reach out to the office. G47.00 Insomnia, unspecified type Comment: Pt scheduled for follow up with sleep medicine on 02/18/25. No orders found for this visit on 02/15/25. Heide Felix APRN.CNP I spent a total of 55 minutes on the date of the service which included preparing to see the patient, [id number] patient care, completing clinical documentation, obtaining and/or reviewing separately obtained history, performing a medically appropriate examination, counseling and educating the patient/family/caregiver, and ordering medications, tests, or procedures. documented in this encounter [facility] 02-15-2025 Note HNO ID: [id number] Author: HEIDE FELIX APRN.CNP Service: ? Author Type: Nurse Practitioner Type: Progress Notes Filed: 02/15/2025 15:33 Note Text: [facility] Neurologic [place] Follow-up Visit Follow-up note February 15, 2025 HPI: Ms. Alas presents today for a follow-up visit. Per her previous visit with Dr. Sullivan on 11/19/24: ASSESSMENT/PLAN: 1. Cognitive impairment, mild, so stated - ICD9: 331.83, ICD10: G31.84 (primary diagnosis) Patient with cognitive complaints as above, of which etiology is uncertain at this time. Subjective history inconsistent, but would suggest that cognitive complaints are worse than what MOCA testing indicates (borderline abnormal). Etiology of cognitive complaints uncertain. Denies anxiety and depression, but has been on meds for both per PCP notes (last from 02/2024) and thus need to consider pseudodementia. Also in ddx would be vitamin deficiency, thyroid disease (metabolic cause). No PCP labs to confirm any prior testing and thus will at least send of B12 and thyroid labs today. Pt states had neurocognitive testing, but I have no results. Possible that symptoms are secondary to excessive amounts of OTC sedating meds patient is taking nightly. Also need to consider early neurodegenerative process or other intracranial cause. In addition to requesting neurocognitive testing results, will also proceed with MRI brain quant to evaluate for intracranial cause of pattern of atrophy that might suggest a neurodegenerative process. Encouraged brain exercises. Follow up 3 months or sooner prn. 2. Insomnia, unspecified type - ICD9: 780.52, ICD10: G47.00 Etiology uncertain, and pt a limited historian. Initially tells me insomnia only present for the past year, but later finding out that this has been an issues for entire life. Pt appears anxious but denies such. Denies worrying or racing thoughts initially but then states cannot turn off mind. Again, as with cognitive impairment, question if underlying depression or anxiety contributing to symptoms. As sedating meds are likely further impairing cognition, would not recommend Rx meds such as Ambien, Lunesta, Benzos... I also feel patient is taking way too many OTC meds with pt indicating she is taking melatonin 40 nightly. Rather than Rx more meds, feel pt might benefit from evaluation with behavioral sleep medicine. Referral will be place for evaluation to determine if they feel treatment through [facility] or other is possible. Pt agrees with plan. Patient arrived 20 min late and time is limited at appointment today. States she has been forgetful; notes this in the kitchen. If she stops things will come to her if she things about them. Takes a minute or two to come up with something. Sometimes when cooking forgets why she went to the fridge. She is driving a little; not getting lost in familiar places. No MVA. No hallucinations. Maybe irritable; increased stress can agitate her. Mostly in the car. No confusion when agitated. No wandering or acting out dreams at night. Does not remember dreams. Has left stove/oven on. Not missing ingredients. long-term memory is not as good as it used to be. 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 Can remember childhood. States she is still taking melatonin at bedtime; 10mg. Also taking Advil PM. She does take thyroid medicine daily. States her PCP had the results at her last appointment. States AD runs in her family. States mother passed before she got older. Thinks dad had it. States her grandma had dementia. MOCA 02/15/25 Visuospatial/exec (5-5) (5/5) Naming (0-3) (/3) Memory Words, up to 2 trials: Face, Velvet, Buddhist, Kt, Red (no points) 4/5 first try, 5/5 second try Attention forwards: 2 1 8 5 4 (0-1) (10/03) Attention backwards: 7 4 2 (0-1) (10/03) Tap for the A: F B A C M N A A J K L B A F A K D E A A A J A M O F A A B (1 point if 0 or 1 error) (10/03) Serial subtraction by 7: [id number] (3 points for correct 4 or 5; 2 points for 2 or 3 correct; 1 point for 1 correct) [id number] (/3) Language: repeat: I only know that Pavan is the one to help today (0-1) (10/03) Language: repeat: The cat always hid under the couch when dogs were in the room (0-1) (10/03) Fluency: max words beginning with the letter F (1 point if 11 or more words) lllll lllll ll (10/03) Abstraction: practice banana-orange=fruit. Then train-bicycle (1) AND watch-ruler (1) total: (2) (2/2) Delayed recall: recall words: face, velvet, orthodoxy, kt, red (0-5) got red with cat clue (4/5) Orientation: date(1), month(1), year(1), day(1), place(1), city(1) max 6 points (6/6) Level of education: add 1 if did not receive more than a HS education +1 Total Score max 30 or 31 (29) The average MoCA score for MCI is 22 (range 19-25) and the average MoCA score for Mild AD is 16 (11-21). PA (more content not included)... [facility] 01-31-2025 Telephone encounter Note TC to Pt. Pt agreed to schedule with KD. Gilberto Kothari LPN [facility] 01-31-2025 Miscellaneous Notes TC to Pt. Pt agreed to schedule with KD. Gilberto Kothari LPN Please place on wait list and also see if she would be willing to see Heidi Felix CNP Thank you Jonnie Sullivan MD Patient was called about needed reschedule for [facility] appointment on 02/14/25, patient stressed she could not travel to any of the closest neuro providers that were pulled. Also patient stressed that she was supposed to receive results of brain test; Dr Tang her PCP would like explained by Neuro. documented in this encounter [facility] 01-31-2025 Telephone encounter Note Please place on wait list and also see if she would be willing to see Heidi Felix CNP Thank you W Laurie COMBS [facility] 01-31-2025 Telephone encounter Note Patient was called about needed reschedule for [facility] appointment on 02/14/25, patient stressed she could not travel to any of the closest neuro providers that were pulled. Also patient stressed that she was supposed to receive results of brain test; Dr Tang her PCP would like explained by Neuro. [facility] 01-03-2025 Evaluation note Diagnosis Onset Date Resolution Lumbar stenosis with neurogenic claudication acute January 1:03pm Scoliosis acute January 03 1:03pm Spondylolisthesis of lumbar region acute January 03, 2025 1:03pm [facility] Work Phone: 1(780) 749-943203-04-2025 History of Present illness Narrative* Kendal Raymundo RT(Alissa) - 12/04/2024 1:00 PM EST Radiology Service Progress Note PATIENT NAME: Lisa Alas DATE OF SERVICE: December 04, 2024 TIME: 2:54 PM PATIENT IDENTITY VERIFICATION COMPLETED USING TWO (2) IDENTIFIERS: Name and Date of confirmedby patient verbally. FALL SCREENING: Has the patient had 2 falls in the last year or 1 fall with injury or currently using an Ambulatory Assistive Device (Walker, Cane, Wheelchair, Crutches, etc.)? No PATIENT GENDER DATA: Assigned female at . status: : No status:NO. PATIENT RELEVANT IMPLANT DATA REVIEWED: Not Applicable PATIENT PRESENTS WITH AN IMPLANTABLE OR ATTACHED CHILDREN'S SERVICE WORKER: No RADIOLOGY DEPARTMENT: MR; Exam(s) Completed: Head: Routine Brain PERIPHERAL IV DATA: Not applicable SIGNED BY: RT Tristen(Alissa) December 04, 2024 2:54 PM [facility] NoteHNO ID: [id number] Author: KENDAL RAYMUNDO RT(R) Service: ? Author Type: Special Class Welder Type: Progress Notes Filed: 12/04/2024 14:54 Note Text: Radiology Service Progress Note PATIENT NAME: Lisa Alas DATE OF SERVICE: December 04, 2024 TIME: 2:54 PM PATIENT IDENTITY VERIFICATION COMPLETED USING TWO (2) IDENTIFIERS: Name and Date of confirmed by patient verbally. FALL SCREENING: Has the patient had 2 falls in the last year or 1 fall with injury or currently using an Ambulatory Assistive Device (Walker, Cane, Wheelchair, Crutches, etc.)? No PATIENT GENDER DATA: Assigned female at . status: : No status: NO. PATIENT RELEVANT IMPLANT DATA REVIEWED: Not Applicable PATIENT PRESENTS WITH AN IMPLANTABLE OR ATTACHED CHILDREN'S SERVICE WORKER: No RADIOLOGY DEPARTMENT: MR; Exam(s) Completed: Head: Routine Brain PERIPHERAL IV DATA: Not applicable SIGNED BY: RT Tristen(R) December 04, 2024 2:54 [facility]02-17-2025 NoteHNO ID: [id number] Author: OLMAN SULLIVAN JR, MD Service: ? Author Type: Physician Type: Progress Notes Filed: 11/19/2024 10:18 Note Text: NEW PATIENT (CONSULT) HISTORY AND PHYSICAL EXAM PRIMARY CARE PHYSICIAN: Thi Tang MD REASON FOR CONSULT: See below REFERRING PHYSICIAN: Thi Tang, * CHIEF COMPLAINT: Insomnia Consultation requested by Thi Tang, * for an opinion regarding chief complaint of Patient presents with: New Patient: Insomnia, memory concerns, forgetting things, not being able to focus and my final recommendations will be communicated back to the requesting physician by way of shared medical record or letter via [place] mail. HISTORY OF PRESENT ILLNESS: Lisa Alas is a 73 year old female, BMI 30.89 kg/m2 with a PMH significant for that noted below. Pt did not complete sleep questionnaire. Patient states not sleeping well for the past year and a half but also states memory is not good lately - able to remember some things and other things I have completely forgot. States can be cooking a recipe that she has used for years but now will forget parts of it. States both insomnia and memory problems started about the same time but memory getting worse of late. Regarding insomnia, pt not aware of a provoking factor. States takes something every night to sleep. However, states if does not take anything, will just be lying there. Regarding pain, does state has a pinched never in her lower spine, but seeing pain mgmt and that is now taken care of. Denies worrying but when asked about thinking of things states I have a noisy mind, in that I have a monologue running up front and music behind it and tinnitus behind that. Generally taking OTC sleep aids. PDMP shows at one time Rx'd Belsomra in 2022. Adds that takes Tylenol or Advil PMs; lots of melatonin, Zquil. States sometimes is combining all these medications. States used to take Ambien years ago. When asked to be specific, thinks maybe about 15 years ago was on Ambien. Thus, this is not a new problem. Denies depression or anxiety. State her is a psychologist and would have expected him to orange picker on that. I dont feel depressed. Never was a shift worker. States not tired during the day. Tired upon getting into bed. States sitting here relaxing but also I am squeezing my hands together. States rarely relaxes. In general goes to bed around 10PM, and if takes something usually alseep by 11PM, but then up and wide awake. No snoring, no witnessed apneas. Usually sleeps on side. No leg kicking. Denies dry mouth or AM headaches. Will get by 2AM for uknown reasons and then takes melatonin and an OTC sleep aid to get back to sleep. Regarding memory, when asked if she is asking the same thing over and over, states her has never said anything. Pt does however forget peoples names she thinks she should be remembering. States cannot always puts names and faces together anymore. When asked about driving, states there was a time where she was getting lost and was driving around in circles but that has resolved itself. Once leg water running and flooded kitchen but states years ago. States has also left things on the stove top and states family always checking that she has turned it off. Most nights estimates 5 hours of sleep. Denies RLS or leg kicking. Taking 40mg of melatonin nightly. TSH Date Value Ref Range Status 10/21/2008 0.621 0.400 - 5.500 uU/mL Final Vitamin B12 Date Value Ref Range Status 11/20/2008 983 (H) 221 - 700 pg/mL Final Modified MOCA: Immediate recall: 02/04 (1st try) Number repeat: 11/04 Sentence repeat: 11/04 Serial 7s: [id number] 12/03 Abstract: 11/04 Orientation: 03/08 Namin/3 Words being with F: 0/ A-1-B-2-C-3...: 10/03 Cube copy: 10/03 Clock draw: 12/03 Delayed recall: 11/07 (01/05 with cues) TOTAL: Patient then states had neurocognitive testing in the past, about 1 month ago, but I have no record of this. On further review of the records patient saw Dr. Hidalgo in 2002 (sleep dept). Reports had a dx of Narcolepsy but she is not endorsing such symptoms at this time. Per that note: She reports she has had a longstanding problem with daytime sleepiness, which became a problem in 1999 when she started to fall asleep when driving. She was taking stimulants at the time, though is unsure of the specific medications. She had a polysomnogram in 1999, and before this study she was taken off all medications, prior to the study. At that time, she said she reverted to a sleeping pattern which she had when she was younger, in which she slept during the day and was wide awake from midnight to 6 AM. She had the polysomnogram at [facility] on June 21, 2000. The test was ordered by Dr. Townsend. The overnight polysomnogram revealed a short sleep onset latency of 5 minutes. There was a decrease in sleep efficiency of 6 (more content not included)...[facility]02-17-2025 History of Present illness Narrative* Olman Sullivan Jr., MD - 11/19/2024 9:23 AM EST NEW PATIENT (CONSULT) HISTORY AND PHYSICAL EXAM PRIMARY CARE PHYSICIAN: Thi Tang MD REASON FOR CONSULT: See below REFERRING PHYSICIAN: Thi Tang, * CHIEF COMPLAINT: Insomnia Consultation requested by Thi Tang, * for an opinion regarding chief complaint of Patient presents with: New Patient: Insomnia, memory concerns, forgetting things, not being able to focus and my final recommendations will be communicated back to the requesting physician by way of sharedmedical record or letter via [place] mail. HISTORY OF PRESENT ILLNESS: Lisa Alas is a 73 year old female, BMI 30.89 kg/m2 with a PMH significant for that noted below. Pt did not complete sleep questionnaire. Patient states not sleeping well for the past year and a half but also states memory is not good lately - able to remember some things and other things I have completely forgot. States can be cooking a recipe that she has used for years but now will forget parts of it. States both insomnia and memory problems started about the same time but memory getting worse of late. Regarding insomnia, pt not aware of a provoking factor. States takes something every night to sleep. However, states if does not take anything, will just be lying there. Regarding pain, does state has a pinched never in her lower spine, but seeing pain mgmt and that is now taken care of. Denies worrying but when asked about thinking of things states I have a noisy mind, in that I have a monologue running up front and music behind it and tinnitus behind that. Generally taking OTC sleep aids. PDMP shows at one time Rx'd Belsomra in 2022. Adds that takes Tylenol or Advil PMs; lots of melatonin, Zquil. States sometimes is combining all these medications. States used to take Ambien years ago. When asked to be specific, thinks maybe about 15 years ago was on Ambien. Thus, this is not a new problem. Denies depression or anxiety. State her is a psychologist and would have expected him to orange picker on that. I dont feel depressed. Never was a shift worker. States not tired during the day. Tired upon getting into bed. States sitting here relaxing but also I am squeezing my hands together. States rarely relaxes. In general goes to bed around 10PM, and if takes something usually alseep by 11PM, but then up and wide awake. No snoring, no witnessed apneas. Usually sleeps on side.No leg kicking. Denies dry mouth or AM headaches. Will get by 2AM for uknown reasons and then takes melatonin and an OTC sleep aid to get back to sleep. Regarding memory, when asked if she is asking the same thing over and over, states her has never said anything. Pt does however forget peoples names she thinks she should be remembering. cannot always puts names and faces together anymore. When asked about driving, states there was atime where she was getting lost and was driving around in circles but that has resolved itself. Once leg water running and flooded kitchen but states years ago. has also left things on the stove top and states family always checking that she has turned it off. Most nights estimates 5 hours of sleep. Denies RLS or leg kicking. Taking 40mg of melatonin nightly. TSH Date Value Ref Range Status 10/21/2008 0.621 0.400 - 5.500 uU/mL Final Vitamin B12 Date Value Ref Range Status 11/20/2008 983 (H) 221 - 700 pg/mL Final Modified MOCA: Immediate recall: 02/04 (1st try) Number repeat: 11/04 Sentence repeat: 11/04 Serial 7s: [id number] 12/03 Abstract: 11/04 Orientation: 03/08 Namin/3 Words being with F: 01 A-1-B-2-C-3...: 10/03 Cube copy: 10/03 Clock draw: 12/03 Delayed recall: 11/07 (01/05 with cues) TOTAL: Patient then states had neurocognitive testing in the past, about 1 month ago, but I have no recordof this. On further review of the records patient saw Dr. Hidalgo in 2002 (sleep dept). Reports had a dx of Narcolepsy but she is not endorsing such symptoms at this time. Per that note: She reports she has had a longstanding problem with daytime sleepiness, which became a problem in 1999 when she started to fall asleep when driving. She was taking stimulants at the time, though is unsure of the specific medications. She had a polysomnogram in 1999, and before this study she was taken off all medications, prior to the study. At that time, she said she reverted to a sleeping pattern which she had when she was younger, in which she slept during the day and was wide awake from midnight to 6 AM. She had the polysomnogram at [facility] on June 21, 2000. The test was ordered by Dr. Townsend. The overnight polysomnogram revealed a short sleep onset latency of 5 minutes. There was a decrease in sleep efficiency of 66%, with no slow-wave sleep, a decreased amount of REM sleep-18% and a prolonged REM latency of 191 minutes. There was only one mixed apnea and 1 central apnea and no hypopneas during the study. The overall AHI was 0.4. Oxygen saturation was above 94% during the study. There were 88 periodic limb movements during sleep, resulting in a periodic limb movement index of 17. She had a multiple sleep latency test the following day, which showed sleep onset latencies decreased with a mean latency of 5.5 minutes. There were 4 naps and sleep onset REM periods were noted in the 3rd and 4th nap, at 9 and 4 minutes after sleep onset, respectively. She reports that when the MSLT was being conducted, she had an extremely difficult time staying awake. She felt that because she was sleeping during the day for 2 weeks before the test, the tech had to come in and make sure that she was awake the entire day. She was diagnosed with narcolepsy and was started on Provigil, though she remembers taking this for only 2 weeks, because she developed neck tightening, along with headaches. She was then changed to Ritalin, though this caused her to feel spacey and she did not feel right. She was then switched to Dexedrine and the maximum dose she was taking was 40 mg per day. This medication did help her daytime sleepiness. However, the Dexedrine was discontinued in 2000, after she had been taking the medication for 6 months, because of some heart difficulties. She started to have palpitations. She also had worsening of her fibromyalgia symptoms, during the time she was taking Dexedrine. Since the discontinuation of Dexedrine, she has had a difficult time sleeping at night. She denies ruminating about things. She has also been sleeping more during the daytime. Since that time, she has been taking Ambien for insomnia. She usually takes it at 10 PM and it takes her 30 minutes to fall asleep. She wakes up at 5:30 AM and remains sleepy. She will then fall back asleep, between 7:30 AM and 8:30 AM. Afterwards, she still feels sleepy. She reports that she is unable to nap in the afternoon, but she does feel fatigued. If she does not take Ambien, she will stay up until 6 AM and will do chores, watch TV or do other housework. In 2001, she reports that she took at bedtime 1 mg of Ativan and 10 mg of Ambien for the entire year. Five months ago, she was started on Xyrem to help her sleep. Initially, she stopped taking the Ambien and she would only sleep for a couple of hours at a time, though she felt that she got deep sleep when she did take Xyrem. She was started on 4.5 mg at night and was increased to a maximum dose of 9 mg, twice nightly. When she was taking 9 mg, she felt that her tongue was numb, along with her hands and feet. She was reduced to 7.5 mg, twice nightly, however, she remained like a zombie the next day but interestingly, she feels that her fibromyalgia pain was absent at this dose. She was decreased to 6 mg twice nightly, and finally back to 4.5 mg twice nightly, though she continued to have hand tingling. During the last month she was taking Xyrem, she also took a dose of Ambien to sleep as well. She reports that even though she only slept for 4 hours per night, she felt better than when she slept for 6 hours per night, when only taking Ambien. In October 2002, she tried Trazodone, but one dose caused her to have shortness of breath and she could not catch her breath. She reports thatas a child, she had many sleep issues. She needed more sleep than other children. She said that her entire family stayed up late. As a kid, she remembers watching the Conrad Paar show. She was very sleepy in school. She remembers that she would sleep from 2 AM to 2 PM, if she could. She recalls it was a struggle to get to school. When she went to community college as an adult, she tried to exclusively arrange afternoon and night classes. She felt that conforming to a 9 to 5 world was difficult. As a kid, she would always stay up late and sleep until the early afternoon. In her early 20s, she reports that she would be walking and, about once a month, she would reach for something, usually when she was bending over, she felt her legs, either one or both, give out. This was not associated with strong emotions and her strength came back right away. When asked about the above sleep history pt denies any recollection of this. IMPRESSION: I am not convinced that she has narcolepsy. She was able to provide details about the time when she had her sleep studies which could explain the results. 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 It is also not clear that she has insomnia, which has been treated with sleeping agents. Rather, she seems to have reverted back to a delayed sleep phase. Note that pt currently not endorsing s/s of DSPT and is up by 7AM daily. REVIEW OF SYSTEMS GENERAL:No weight loss, malaise or fevers. HEENT:Negative for frequent or significant headaches, No changes in hearing or vision, no nose bleeds or other nasal problems NECK:Negative for lumps, goiter, pain and significant neck swelling RESPIRATORY: Negative for cough, wheezing or shortness of breath. CARDIOVASCULAR: Negative for chest pain, leg swelling or palpitations. GASTROINTESTINAL: Negative for abdominal discomfort, blood in stools or black stools or change in bowel habits GENITOURINARY: No history of dysuria, frequency or incontinence MUSCULOSKELETAL: Negative for joint pain or swelling, back pain or muscle pain. NEUROLOGIC:Negative for focal numbness or weakness, headaches and dizziness or syncope, vision changes, speech/language changes, changes in gait or falls -- besides those complaints as above in HPI. SKIN:Negative for lesions, rash, and itching. PSYCHIATRIC: See HPI. HEMATOLOGIC/LYMPHATIC/IMMUNOLOGIC:Negative for prolonged bleeding, bruising easily or swollen nodes. ENDOCRINE: Negative for cold or heat intolerance, polyuria, polydipsia and goiter. The remainder of the ROS was reviewed and is negative. LAB/IMAGING: Reviewed and include: WBC (k/uL) Date Value 01/15/2009 10.31 RBC (m/uL) Date Value 01/15/2009 4.04 Hemoglobin (g/dL) Date Value 01/15/2009 13.3 Hematocrit (%) Date Value 01/15/2009 39.4 MCV (fL) Date Value 01/15/2009 97.5 MCH (pG) Date Value 01/15/2009 32.9 MCHC (g/dL) Date Value 01/15/2009 33.8 RDW-CV (%) Date Value 01/15/2009 13.7 Platelet Count (k/uL) Date Value 01/15/2009 230 MPV (fL) Date Value 01/15/2009 10.3 Glucose (mg/dL) Date Value 10/21/2008 120 (H) BUN (mg/dL) Date Value 10/21/2008 19 Creatinine (mg/dL) Date Value 10/21/2008 0.79 Sodium (mmol/L) Date Value 10/21/2008 138 Potassium (mmol/L) Date Value 10/21/2008 3.6 Chloride (mmol/L) Date Value 10/21/2008 100 CO2 (mmol/L) Date Value 10/21/2008 26 Protein, Total (g/dL) Date Value 10/21/2008 7.0 10/21/2008 7.0 Albumin Date Value 10/21/2008 4.7 g/dL 10/21/2008 4.66 gm/dL Calcium (mg/dL) Date Value 10/21/2008 9.9 Alkaline Phosphatase (U/L) Date Value 10/21/2008 46 Bilirubin, Total (mg/dL) Date Value 10/21/2008 0.6 AST (U/L) Date Value 10/21/2008 22 ALT (U/L) Date Value 10/21/2008 34 Cryoglobulins (ug/mL) Date Value 10/20/2009 19 Rheumatoid Factor (IU/mL) Date Value 10/20/2009 7 Hep C Antibody IA (no units) Date Value 10/20/2009 Negative URINALYSIS Specific [place], Ur Date Value Ref Range Status 01/22/2009 1.010 1.005 - 1.030 Glucose, Urine Date Value Ref Range Status 01/22/2009 neg Neg mg/dL Bilirubin, Urine Date Value Ref Range Status 01/22/2009 neg Neg Ketones, Urine Date Value Ref Range Status 01/22/2009 neg Neg Hemoglobin/Blood,Ur Date Value Ref Range Status 01/22/2009 neg Neg Protein, Urine Date Value Ref Range Status 01/22/2009 neg Neg mg/dL Urobilinogen, Urine Date Value Ref Range Status 01/22/2009 neg Normal (<1.1) EU Leukocytes Date Value Ref Range Status 01/22/2009 neg Neg (I have no recent lab work from PCP for review). MEDICATIONS: KRILL OIL ORAL Take by mouth once daily. ranitidine (ZANTAC) 150 mg tablet Take 1 tablet by mouth once daily. hydrOXYzine HCl (ATARAX) 10 mg tablet Take one to two tablets at bedtime and every 6 hours as needed for itching, hives predniSONE (DELTASONE) 10 mg tablet Take 6 tablets once a day for 5 days, then 4 tabs daily for 2 days, 3 tabs daily for 2 days, 2 tabs daily for 2 days, then 1 tab daily for 2 days potassium chloride(KLOR-CON 10 10 MEQ TAB) twp tab. twice daily levothyroxine sodium(SYNTHROID 150 MCG TAB) Take one(1) tablet daily. MAGNESIUM OXIDE 400 MG TAB Take one(1) tablet daily. pt unsure of dosage fenofibrate nanocrystallized(TRICOR 145 MG TAB) Take one(1) tablet daily. 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 r/o'ed sleep apnea Other acute myocarditis 2000 recovered Other and unspecified hyperlipidemia Other chronic nonalcoholic liver disease Unspecified dental caries Unspecified essential hypertension Unspecified hypothyroidism FAMILY HISTORY Problem Relation Age of Onset Diabetes Brother Heart Father rheumatic Lipids Mother Lipids Father Lipids Brother Lipids Brother Lipids Brother Hypertension Mother Asthma Brother SOCIAL HISTORY Social History Tobacco Use Smoking status: Never Smokeless tobacco: Never Substance Use Topics Alcohol use: No PHYSICAL EXAMINATION Wt 75.4 kg (166 lb 3.2 oz) BMI 30.89 kg/m GENERAL EXAM: General appearance: NAD, pleasant. HEENT: NC/AT, nasal congestion absent, no oral lesions, membranes moist. NECK: ROM nml. Lungs: CTA bilaterally. CV: RRR nl S1, S2. No carotid bruits. Extr: No cyanosis, clubbing or edema. Skin: Cool to touch. NEUROLOGICAL EXAM: General: Awake, alert, oriented x3 (person,place,time), fluent, no dysarthria; comprehension, naming, repetition intact. MOCA as above. CN: PERRL, fundi withno evidence of papilledema, EOMI and without nystagmus, VFF to confrontation, facial sensation and strength are normal and symmetric, hearing is intact to finger rub bilaterally,palate and tongue movements are intact and symmetric. SCM and trapezius strength normal. Motor: Normal tone, bulk and strength (5/5) bilaterally (throughout extremities x4). Coordination: FNF, EDGAR, HTS intact. No tremors. Sensation: Light touch and vibration intact throughout. No evidence of neglect. Gait: Stable with nml arm swign and stride. Assessment and Plan: ASSESSMENT/PLAN: 1. Cognitive impairment, mild, so stated - ICD9: 331.83, ICD10: G31.84 (primary diagnosis) Patient with cognitive complaints as above, of which etiology is uncertain at this time. Subjectivehistory inconsistent, but would suggest that cognitive complaints are worse than what MOCA testing indicates (borderline abnormal). Etiology of cognitive complaints uncertain. Denies anxiety and depression, but has been on meds for both per PCP notes (last from 02/2024) and thus need to consider pseudodementia. Also in ddx would be vitamin deficiency, thyroid disease (metabolic cause). No PCP labsto confirm any prior testing and thus will at least send of B12 and thyroid labs today. Pt states had neurocognitive testing, but I have no results. Possible that symptoms are secondary to excessive amounts of OTC sedating meds patient is taking nightly. Also need to consider early neurodegenerative process or other intracranial cause. In addition to requesting neurocognitive testing results, will also proceed with MRI brain quant to evaluate for intracranial cause of pattern of atrophy that might suggest a neurodegenerative process. Encouraged brain exercises. Follow up 3 months or sooner prn. 2. Insomnia, unspecified type - ICD9: 780.52, ICD10: G47.00 Etiology uncertain, and pt a limited historian. Initially tells me insomnia only present for the past year, but later finding out that this has been an issues for entire life. Pt appears anxious but denies such. Denies worrying or racing thoughts initially but then states cannot turn off mind. Again, as with cognitive impairment, question if underlying depression or anxiety contributing to symptoms. As sedating meds are likely further impairing cognition, would not recommend Rx meds such as Ambien, Lunesta, Benzos... I also feel patient is taking way too many OTC meds with pt indicating she is taking melatonin 40 nightly. Rather than Rx more meds, feel pt might benefit from evaluation with [facility] sleep medicine. Referral will be place for evaluation to determine if they feel treatmentthrough CBTi or other is possible. Pt agrees with plan. Olman Sullivan MD I spent a total of 50+ minutes on the date of the service which included preparing to see the patient, [id number] patient care, completing clinical documentation, obtaining and/or reviewing separately obtained history, performing a medically appropriate examination, counseling and educating the pa tient/family/caregiver, ordering medications, tests, or procedures, independently interpreting results (not separately reported), and communicating results to the patient/family/caregiver. * Kaushik Calhoun LPN - 11/19/2024 9:18 AM EST documented in [facility] encounterHol[facility] NoteHNO ID: [id number] Author: KAUSHIK CALHOUN LPN Service: ? Author Type: LICENSED NURSE Type: Progress Notes Filed: 11/19/2024 10:18 Note Text:[facility]06-07-2024 Telephone encounter Note* Telephone Encounter - Jacquelyn Wolfe LPN - 03/09/2024 4:55 PM EDT Scheduled at [facility] 07/03/24. Jacquelyn Wolfe LPN [facility]06-07-2024 Miscellaneous Notes* Telephone Encounter - Jacquelyn Wolfe LPN - 03/09/2024 4:55 PM EDT Scheduled at [facility] 07/03/24. Jacquelyn Wolfe LPN * Telephone Encounter - Vivian Chacon LPN - 03/06/2024 6:12 PM EDT Appointment not scheduled as of 03/06/2024. No MyChart access. Vivian Chacon LPN * Telephone Encounter - Vivian Chacon LPN - 03/01/2024 6:47 PM EDT Referral received from [facility]. Phone call placed, no answer (last seen CC 2018) no message left. Vivian Chacon LPN MyChart not activated. Sent to scheduling to assist with new sleep appointment. Vivian Chacon LPN documented in this encounterHol[facility]06-04-2024 Telephone encounter Note * Telephone Encounter - Vivian Chacon LPN - 03/06/2024 6:12 PM EDT Appointment not scheduled as of 03/06/2024. No MyChart access. Vivian Chacon LPN [facility]05-30-2024 Telephone encounter Note* Telephone Encounter - Vivian Chacon LPN - 03/01/2024 6:47 PM EDT Referral received from [facility]. Phone call placed, no answer (last seen CC 2018) no message left. Vivian Chacon LPN MyChart not activated. Sent to scheduling to assist with new sleep appointment. Vivian Chacon LPN [facility]01-17-2023 [facility]01-[facility]-2023 Procedure noteWDayton VA Medical CenterEvaluation noteNo assessment information availableWDayton VA Medical Center Work Phone: Evaluation note* Diagnosis Onset Date Resolution Status Diarrhea acute [facility] Work Phone: Evaluation note* Diagnosis Onset Date Resolution Status Diarrhea acute Colon polyps chronic [facility] Work Phone: evaluation note* Diagnosis Cognitive impairment, mild, so stated- Primary Mild cognitive impairment, so stated Insomnia, unspecified type documented in this encounter [facility]* Diagnosis Cognitive impairment, mild, so stated Mild cognitive impairment, so stated documented in this encounter [facility]* Diagnosis MCI (mild cognitive impairment)- Primary Mild cognitive impairment, so stated Insomnia, unspecified type documented in this encounter [facility]* Diagnosis Chronic insomnia- Primary Insomnia, unspecified documented in this encounter [facility]* Diagnosis Chronic insomnia Insomnia, unspecified documented in this encounter [facility]* Diagnosis Chronic insomnia- Primary Insomnia, unspecified documented in this encounter [facility]History [facility] Author Rai Hutson [facility] October 19, 2022 2:10pm Note Date/Time October 19, 2022 2 :10pm [facility] Medical Records Department [address] [place] [id number] History & Physical Exam 10/19/22 1409 MR#: [id number] Acct: [id number] Name: LISA ALAS Rep #:[id number] : 1950 71 From: Rai Hutson DO PCP: Dr. Ashu Tang MD Status: [facility] Location: [place] [address] History and Physical Date of Admission: 10/19/22 71 F who presents to the office today for diarrhea which persisted for one month, was associated with bilateral lower abdominal pain. The pain has resolved. The diarrhea is better but stools are still slightly looser than normal, but formed now. It was initially just watery. Having 3-4 BMs per day, normally only has 2 BMs per day. Two daughters also had diarrhea. She had covid in early July 2022, then diarrhea began soon after that infection. Runny nosehas resolved. No melena or hematochezia. Eats a very healthy diet. Negative for C diff, O&P, H pylori. Hx of IBS, she says not active since improving her diet. She was previously treated by GI Dr Aguirre in [place]. She is due for her screening colonoscopy. Hx pancreatitis. Reports her mother from pancreatitis. 2 brother w/ hx of pancreatitis. Chart includes hx of GERD, she denies any heartburn or acid reflux, not on any meds for GERD, thinks she had an EGD many years ago. ROS Const Constitutional: No fatigue ENT ENT: No difficulty swallowing Gastro GI: Positive for diarrhea; No abdominal pain, belching, bloating, change in bowel habits, change in stool character, coffee ground emesis, constipation, cramping, heartburn, difficulty swallowing, feeling full early, excessive flatus, incontinent of stools, Vomiting blood/hematemesis, Blood in stool, loose stools, Black,tarry stools, nausea/dyspepsia, pain with swallowing, vomiting or other Musc Musculoskeletal: No joint pain Skin Skin: No yellowing of the eye or itchy eyes Psych Psychiatric: No anxiety and No depression Endo Endocrine: No fatigue Aller/Imm Allergy/Immunologic: No itchy eyes Aris/Lymp Hematologic/Lymphatic: No easy bleeding or easy bruising Exam Const General: cooperative Nutritional Appearance: overweight Orientation: alert, awake and oriented x3 HENMT Head: normal to inspection Eyes General: appearance normal, both eyes and all related structures Resp Effort & Inspection: normal respiratory effort GI Inspection: obesity Quality Reporting Tobacco Screening ([facility] 138) Smoking Status: Never smoker Assessment and Plan Assessment and Plan (1) Diarrhea: ?Status:?Acute ?Plan: 71 yo female with acute diarrhea that is resolving spontaneously, likely viral. She declines any treatment. We will schedule her for screening colonoscopy. w/ f/u [address] Hutson. We discussed her hx pancreatitis, she declines any eval related to that. I have examined the patient and the H&P has been reviewed. There are no clinicalchanges since date of exam. 10/19/22 1410 <Electronically signed by Rai Hutson DO> Cosigner Signature (if applicable): CC: Dr. Ashu Tang MD; Rai Hutson DO~ Signed [facility] Work Phone: Reason for referral (narrative)No reason for referral information availableWDayton VA Medical Center Work Phone: Family History No Family History Records Found Relationship Condition Age at Onset Recorded Date/T johan Unknown Family History?- Unknown April 02 4:28pm Family History?- Unknown April 02 4:28pm Family History?Heart Disease, - Unknown April 02, 2016 4:28pm Relationship Condition Age at Onset Recorded Date/T johan Unknown Family History?- Unknown April 02 3:28pm Family History?- Unknown April 02 3:28pm Family History?Heart Disease, - Unknown April 02, 2016 3:28pm Advance Directives No Advanced Directives Records Found Advance Directive Response Recorded Date/ Time Advance Directives Yes April 02 2:00pm Living Will Yes April 02, 2016 2 :00pm Power of Field Liability Generalist Yes April 02, 2016 2:00pm Advance Directive Response Recorded Date/ Time Advance Directives Yes April 02 1:00pm Living Will No October 13 10:09am Power of Field Liability Generalist No October 13, 2022 10:09am Advance Directive Response Recorded Date/ Time Advance Directives Yes April 02 2:00pm Living Will No October 13 11:09am Power of Field Liability Generalist No October 13, 2022 11:09am Advance Directive Response Recorded Date/ Time Advance Directives Yes April 02 2:00pm Chief Complaint and Reason for Visit Chief Complaint YARN EXAMINER Reason for Visit Diarrhea Chief Complaint 2 WK FU Reason for Visit Diarrhea Colon polyps Chief Complaint EORDER R HIP PN/RX HERE Chief Complaint Admit Date LUMBAR SPINE January 03, 2025 1:03 pm EORDERS March 12, 2025 2:00 pm Reason for Visit Admit Date Lumbar stenosis with neurogenic claudica tion January 03, 2025 1:03pm Scoliosis January 03, 2025 1:03 pm Spondylolisthesis of lumbar region January 03, 2025 1:03pm Summary Purpose Additional Source Comments Goals (unrecognized section and content) Goals may be documented in a n alternate sectionGoals may be documented in an alternate sectionGoals may be documented in an alternate section Care Teams (unrecognized sec tion and content) Team Status: Active Member Role Status Dates Dr. Ashu Tang MD Family Provider Active Dr. Ashu Tang MD Primary Care Provider Activ e Team Status: Inactive Member Role Status Dates Dr. Ashu Tang MD Primary Care Provider, Refe rring Provider Active Brittani M Thierry YARN EXAMINER, YARN EXAMINER-C Attending Provider Active Team Status: Active Member Role Status Dates Dr. Ashu Tang MD Primary Care Provider, Refe rring Provider Active Dr. Rai Hutson DO Attending Provider, Other Prov ider Active Team Status: Inactive Member Role Status Dates Dr. Ashu Tang MD Primary Care Provider Activ nicky Sales , YARN EXAMINER-C Attending Provider Active Team Status: Inactive Member Role Status Dates Dr. Ashu Tang MD Primary Care Provider, Refe rring Provider Active Dr. Rai Hutson DO Attending Provider Active Team Status: Inactive Member Role Status Dates Dr. Ashu Tang MD Primary Care Provider, Atte nding Provider Active Team Status: Inactive Member Role Status Dates Dr. Ashu Tang MD Primary Care Provider, Attending Provider, Referring Provider Active Mortar Mixer Relationship Specialty Start Date End Date Thi Tang MD [address] [place], [place] [address] PCP - General 04/17/08 Mortar Mixer Relationship Specialty Start Date End Date Thi Tang MD [address] [place], [place] [id number] PCP - General 04/17/08 Mortar Mixer Relationship Specialty Start Date End Date Thi Tang MD [address] [place], [place] [id number] PCP - General 04/17/08 Mortar Mixer Relationship Specialty Start Date End Date Thi Tang MD [address] [facility] [place] [place] [id number] PCP - General 04/17/08 Mortar Mixer Relationship Specialty Start Date End Date Thi Tang MD [address] [facility] [place], [place] [id number] PCP - General 04/17/08 Mortar Mixer Relationship Specialty Start Date End Date Thi Tang MD [address] [place], [place] [address], [place] [id number] PCP - General 04/17/08 Mortar Mixer Relationship Specialty Start Date End Date Thi Tang MD [address] [place] [address] [place], [place] [address] PCP - General 04/17/08 Team Status: Active Member Role Status Dates Dr. Thi Tang MD Family Provider Active Dr. Thi Tang MD Primary Care Provider Acti ve Team Status: Inactive Member Role Status Dates Dr. Thi Tang MD Primary Care Provider Acti ve Start: January 03, 2025 End: January 03, 2025 Dr. Thi Tang MD Referring Provider Active Start: January 03, 2025 End: January 03, 2025 DINO Riggs Attending Provider Active Star t: January 03, 2025 End: January 03, 2025 Team Status: Inactive Member Role Status Dates Dr. Thi Tang MD Primary Care Provider Acti ve Start: March 12, 2025 End: March 12, 2025 Dr. Thi Tang MD Attending Provider Active Start: March 12, 2025 End: March 12, 2025 Dr. Thi Tang MD Referring Provider Active Start: March 12, 2025 End: March 12, 2025 Mortar Mixer Relationship Specialty Start Date End Date Thi Tang MD [address] [place] [address] [place], [place] [id number] PCP - General 04/17/08 Source Comments (unrecognize d section and content) In the event this informatio n is protected by the Federal Confidentiality of Alcohol and Drug Abuse Patient Records regulations: The Federal rules restrict any use of the information to criminally investigate or prosecute any alcohol or drug abuse patient.[facility] the event this information is protected by the Federal Confidentiality of Alcohol and Drug Abuse Patient Records regulations: The Federal rules restrict any use of the information to criminally investigate or prosecute any alcohol or drug abuse patient.[facility] the event this information is protected by the Federal Confidentiality of Alcohol and Drug Abuse Patient Records regulations: The Federal rules restrict any use of the information to criminally investigate or prosecute any alcohol or drug abuse patient.[facility] the event this information is protected by the Federal Confidentiality of Alcohol and Drug Abuse Patient Records regulations: The Federal rules restrict any use of the information to criminally investigate or prosecute any alcohol or drug abuse patient.[facility] the event this information is protected by the Federal Confidentiality of Alcohol and Drug Abuse Patient Records regulations: The Federal rules restrict any use of the information to criminally investigate or prosecute any alcohol or drug abuse patient.[facility] the event this information is protected by the Federal Confidentiality of Alcohol and Drug Abuse Patient Records regulations: The Federal rules restrict any use of the information to criminally investigate or prosecute any alcohol or drug abuse patient.[facility] the event this information is protected by the Federal Confidentiality of Alcohol and Drug Abuse Patient Records regulations: The Federal rules restrict any use of the information to criminally investigate or prosecute any alcohol or drug abuse patient.[facility] Hospital[facility] the event this information is protected by the Federal Confidentiality of Alcohol and Drug Abuse Patient Records regulations: The Federal rules restrict any use of the information to criminally investigate or prosecute any alcohol or drug abuse patient.[facility] INFORMATION SOURCE (unrecogn ized section and content) DATE CREATED AUTHOR 07/20/2024 [facility] DATE CREATED AUTHOR AUTHOR'S ORGANIZ ATION 03/21/2025 [facility] DATE CREATED AUTHOR AUTHOR'S ORGANIZ ATION 07/06/[address] [facility] Reason for Visit (unrecogniz ed section and content) Reason Comments New Patient Insomnia, memory con cerns, forgetting things, not being able to focus Reason Comments Radiology MRI Specialty Diagnoses / Procedures Referred By Contac t Referred To Contact MR IMAGING Diagnoses Cognitive impairment, mild, so stated Procedures MRI BRAIN W QUANT WO IVCON MRI BRAIN BRAIN STEM W/O CONTRAST MATERIAL Olman Sullivan Jr., MD [address] [place] [address] Phone: tel: fax: [place] [id number] Referral ID Status Reason Start Date Expiration Date V isits Requested Visits Authorized [id number] Closed Auto-Generate d Referral 11/19/2024 12/19/2025 1 1 Reason Comments Results Reason Onset Date Comments Refill Request 03/06/2025 Reason Comments Follow Up 2 month follow up FOR RECORDS PERTAINING TO PATIENTS WHO ARE OR HAVE BEEN ENROLLED IN A CHEMICAL DEPENDENCY/SUBSTANCEABUSE PROGRAM, SOME INFORMATION MAY BE OMITTED. This clinical summary was aggregated from multiple sources. Caution should be exercised in using it in the provision of clinical care. This summary normalizes information from multiple sources, and as a consequence, information in this document may materially change the coding, format and clinical context of patient data. In addition, data may be omitted in some cases. CLINICAL DECISIONS SHOULD BE BASED ON THE PRIMARY CLINICAL RECORDS. [employer] provides no warranty or guarantee of the accuracy or completeness of information in this document.
== END | disposition home or self-care (01) ==
LOC: LABSPEC 16:05
PROVIDERS: PCP Family Medicine; Visit Provider Family Medicine
DX: Z00.00 Encounter for general adult medical examination without abnormal findings (principal)
CPT/HCPCS: 82043; 82570